=== PATIENT | female | born 1950 | race Caucasian/White ===

== ENCOUNTER 2017-01-22 06:28 | Day surgery (SDC) | payer OTHER, MEDICARE ==
[~2017-01-22] VITALS: Ht 157.5 cm; Wt 74.8 kg
[~2017-01-22 06:28] MED LIST: BUPROPION XL300 MG PO; CALTRATE 600+D1 EAC2 PO; GLUCOSAMINE H1500 MG PO; LISINOPRIL-HCT1 EACH PO; NORCO 5-325 TA1 EACH PO; SIMVASTATIN40 MG PO; VITAMIN D250000 UNIT PO; ZYRTEC10 MG PO
--- NOTE | 2017-01-22 08:13 | NUR ---
01/22/17 0813 Ryne Fang RESPONDS TO TAP AND VOICE ON ENTRY TO PACU. DENIES NAUSEA OR PAIN. FALLS ASLEEP EASILY.
--- NOTE | 2017-01-23 11:09 | OR ---
[facility] [address] [place], [place] [address] Signed DATE OF OPERATION: 01/22/2017 SURGEON: Hue Hall MD UPPER AND LOWER ENDOSCOPY REPORT PREOPERATIVE DIAGNOSES: 1. Gastroesophageal reflux disease. 2. Screening. POSTOPERATIVE DIAGNOSES: 1. Mild diffuse gastritis. 2. 4 mm polyp at 8 cm. PROCEDURES: 1. EGD with CLOtest and biopsies of the pyloric bulb and antrum. 2. Colonoscopy without biopsy. ESTIMATED BLOOD LOSS: None. INDICATIONS: Una is a 66-year-old female, who was asked to see me for both upper and lower endoscopy. She has had acid reflux for years and has been on a proton pump inhibitor. Apparently, the acid reflux getting worse. 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 Apparently, her employer would like her to stay longer. In addition, she had a negative screening colonoscopy back in 2005. There is no family history of colon cancer or polyps. Una has no lower GI complaints. I gave Una pamphlets on both upper and lower endoscopy. We looked at those together and reviewed the risk including, but not limited to gas, bloating, crampy abdominal pain, bleeding, perforation, requiring surgery, and missed diagnosis. We also discussed the need for IV conscious sedation. She has done well with Versed and fentanyl in the past. She has expressed understanding and would like to proceed. PROCEDURE NOTE: Una was taken into our endoscopy suite and placed in the supine semi-recumbent position. The posterior oropharynx was anesthetized with Hurricaine spray. A bite block was utilized for the upper endoscopy. She was given a total of 6 mg of Versed and 200 mcg of fentanyl to cover both cases. The adult gastroscope was then introduced and advanced under direct visualization of camera under the third portion of the duodenum. Electronically Signed By: HUE HALL MD 01/23/17 1109 PATIENT NAME: UNA RODRIGUEZ OPERATIVE REPORT DATE OF : 50 PHYSICIAN: HUE HALL MD REPORT #: [id number] REPORT IS CONFIDENTIAL AND NOT TO BE RELEASED WITHOUT AUTHORIZATION [facility] [address] [place], [place] [address] Signed The duodenum was unremarkable. We thought she had a little irritation, maybe in the pyloric bulb and certainly some mild diffuse erythematous changes in the stomach. We went and took biopsies at the pyloric bulb as well as the antrum for pathologic review. We also took a biopsy from the antrum for CLOtest. Upon retroflexion of scope, there was no evidence of a hiatal hernia. There were no gastric or esophageal varices. No ulcerations. The scope was withdrawn up through the area of GE junction, which was compliant without stricture. There was no evidence of any Klein esophagus. There was minimal disruption to the Z-line. There was no distal esophagitis. The middle and upper esophagus were unremarkable. After this, the gas was suctioned out and the gastroscope was removed. Una tolerated the procedure quite well. Una was then rotated into the left lateral decubitus position. She was maintained on IV sedation with Versed and fentanyl. A digital rectal exam was performed and this was unremarkable. The adult colonoscope was introduced and advanced all around into the cecum under direct visualization of the camera. It took some extra sedation and extra abdominal compression in order to advance the scope. She has a long redundant left-sided colon, it took some extra time to get the camera through this area. Her prep was quite good. The scope was then slowly withdrawn. We saw no pathology in the entire colon. In the rectum, she had a tiny polyp at 8 cm, which we removed with a hot biopsy forceps. Upon retroflexion of scope, there was no additional pathology noted above the anal canal. After this, the gas was suctioned out and colonoscope removed. Una tolerated the procedure quite well. RECOMMENDATIONS: I will see Una back in my office in 7 to 14 days to review her results. MD CLARE Qureshi/MODL /[id number] Electronically Signed By: HUE HALL MD 01/23/17 1109 PATIENT NAME: UNA RODRIGUEZ OPERATIVE REPORT DATE OF : 50 PHYSICIAN: HUE HALL MD REPORT #: [id number] REPORT IS CONFIDENTIAL AND NOT TO BE RELEASED WITHOUT AUTHORIZATION [facility] [address] [place] [address] [place], [place] [address] Signed cc: Aleksey Hamm DO Electronically Signed By: HUE HALL MD 01/23/17 1109 PATIENT NAME: UNA RODRIGUEZ OPERATIVE REPORT DATE OF : 50 PHYSICIAN: HUE HALL MD REPORT #: [id number] REPORT IS CONFIDENTIAL AND NOT TO BE RELEASED WITHOUT AUTHORIZATION
== END 2017-01-22 08:45 | disposition home or self-care (01) ==
LOC: DS 06:28 → OPS 06:28 → DS 06:45 → OPS 06:45
PROVIDERS: Colon & Rectal Surgery
PROC: 0DB68ZX Excision of Stomach, Via Natural or Artificial Opening Endoscopic, Diagnostic (ICD-10-PCS; 2017-01-22)
PROC: 0DBP8ZX Excision of Rectum, Via Natural or Artificial Opening Endoscopic, Diagnostic (ICD-10-PCS; principal; 2017-01-22 06:45)
PROC: 0DB98ZX Excision of Duodenum, Via Natural or Artificial Opening Endoscopic, Diagnostic (ICD-10-PCS; 2017-01-22 06:45)
DX: Z12.11 Encounter for screening for malignant neoplasm of colon (principal); K62.1 Rectal polyp; K29.50 Unspecified chronic gastritis without bleeding; K21.9 Gastro-esophageal reflux disease without esophagitis; E78.5 Hyperlipidemia, unspecified; I10 Essential (primary) hypertension; F32.9 Major depressive disorder, single episode, unspecified; F41.9 Anxiety disorder, unspecified; M06.9 Rheumatoid arthritis, unspecified; M81.0 Age-related osteoporosis without current pathological fracture; E55.9 Vitamin D deficiency, unspecified; G47.00 Insomnia, unspecified; Z90.710 Acquired absence of both cervix and uterus; Z88.5 Allergy status to narcotic agent; Z79.899 Other long term (current) drug therapy; Z98.890 Other specified postprocedural states
CPT/HCPCS: 86677; 88305; 99152; 99153; J2250; J3010; J7120

== ENCOUNTER 2020-01-05 12:16 | Emergency (ER) | payer MEDICARE ==
[~2020-01-05] VITALS: Ht 157.5 cm; Wt 74.8 kg
--- OUTSIDE RECORDS SUMMARY | ~2020-01-05 | XMS | Encounter Summary ---
Demographics + + + | Address | [address] | | | [place] [address] | + + + | Home Phone | | + + + | Preferred Language | Unknown | + + + | Marital Status | | + + + | Congregational Affiliation | Unknown | + + + | Race | White | + + + | Ethnic Group | Not or | + + + Author + + + | Author | [facility] | | | and [place] | + + + | Organization | [facility] | | | and [place] | + + + | Address | Unknown | + + + | Phone | Unavailable | + + + Support + + +---------+ + | Name | Relationship | Address | Phone | + + +---------+ + | Lis Perkins | ECON | Unknown | | + + +---------+ + Care Team Providers + +------+ + | Care Working Supervisor Name | Role | Phone | + +------+ + | Adonis Hamm DO | PCP | | + +------+ + Reason for Visit + + + | Reason | Comments | + + + | Medication Refill | | + + + Encounter Details +--------+--------+ + + + | Date | Type | Department | Care Team | Description | +--------+--------+ + + + | 06/30/ | Refill | [facility] | Adonis Hamm | Medication Refill | | 2018 | | [facility] | E, DO [address] | | | | | MEDICAL CL[facility] | [place], [place] | | | | | [address] [place], | [address] | | | | | [place] [address] | [phone] | | | | | [phone] | | | +--------+--------+ + + + Social History + +-------+ +--------+------+ | Tobacco Use | Types | Packs/Day | Years | Date | | | | | Used | | + +-------+ +--------+------+ | Never Smoker | | | | | + +-------+ +--------+------+ + +---+---+---+ | Smokeless Tobacco: | | | | | Never Used | | | | + +---+---+---+ + + +---------+ + | Alcohol Use | Drinks/Week | oz/Week | Comments | + + +---------+ + | Yes | 2 Cans of beer | 2.0 | | + + +---------+ + + + + | Sex Assigned at | Date Recorded | | | | + + + | Not on file | | + + + documented as of this encounter Miscellaneous Notes Telephone Encounter - Galina Bundy CMA - 06/30/2018 9:26 AM PDT [facility]ill [facility]. Patient was last seen on Recent Visits 04/14/2018 Mixed hyperlipidemia [facility] Adonis Hamm, DO Office Visit 02/03/2018 Mixed hyperlipidemia [facility] Adonis Hamm, DO Office Visit . Requested Prescriptions Pending Prescriptions Disp Refills lisinopril-hydrochlorothiazide (PRINZIDE,ZESTORETIC) 20-12.5 MG per tablet [Pharmacy Me d Name: LISINOPRIL-HCTZ 20/12.5MG TABLETS] 90 tablet 0 Sig: TAKE 1 TABLET BY MOUTH EVERY DAY Outpatient Morphine Equivalent Daily Dose (MEDD) None No results found for: AMPH, METHAMPHQUAL, CANNIBSCR, THC, MDMA, METHADSCR, METHADONE, LABOP IA, OPIATESCR, OPIATES, OPIATESINTER, MORPHINE, HYDROC, LABBENZ, TRICYCLICUR, BARBITURATE, P CP, AMPHEQUAL, OXYCODONEUR, OXYCODONE, OXYCOD, OXYMOR, PROPOX Patient's last refill was done 12/31/17. Other associated documentation for review None Galina Bundy CMA documented in this e ncounter Plan of Treatment Not on filedocumented as of this encounter Visit Diagnoses Not on filedocumented in this encounter"
--- OUTSIDE RECORDS SUMMARY | ~2020-01-05 | XMS | Encounter Summary ---
Demographics + + + | Address | [address] | | | [place] [address] | + + + | Home Phone | | + + + | Preferred Language | Unknown | + + + | Marital Status | | + + + | Denominational Affiliation | Unknown | + + + | Race | White | + + + | Ethnic Group | Not or | + + + Author + + + | Author | [facility] | | | and [place] | + + + | Organization | [facility] | | | and [...] Team Providers + +------+ + | Care Hitcher Name | Role | Phone | + +------+ + | Adonis Hamm DO | PCP | | + +------+ + Reason for Visit + +--------+ + | Reason | Onset | Comments | | | Date | | + +--------+ + | Medication Refill | 04/01/ | | | | 2020 | | + +--------+ + | Medication Refill | 04/03/ | | | | 2020 | | + +--------+ + Encounter Details +--------+--------+ + + + | Date | Type | Department | Care Team | Description | +--------+--------+ + + + | 04/01/ | Refill | [facility] | Adonis Hamm | Medication Refill; | | 2020 | | [facility] | E, DO [address] | Medication Refill | | | | MEDICAL [facility] [address] | [place], [place] | | | | [address] [facility], | [address] | | | | | [place] [address] | [phone] | | | | | [phone] | | | +--------+--------+ + + + [...] this encounter Miscellaneous Notes Telephone Encounter - Violeta Monsivais - 04/03/2019 2:57 PM PSTConfirmed by pharm 0. Ryann elephone Encount Violeta Magaña - 04/01/2019 9:06 AM PSTPt is asking that her RX for azithromycin (ZITHROMAX) 250 mg tablet Be sent to [facility] in [place]. It was sent to [facility] in on 03/30/19 but this is wrong. Clarisa, Violeta documented in this enc ounter Plan of Treatment Not on filedocumented as of this encounter Visit Diagnoses Not on filedocumented in this encounter"
--- OUTSIDE RECORDS SUMMARY | ~2020-01-05 | XMS | Encounter Summary ---
Demographics + + + | Address | [address] | | | [place] [address] | + + + | Home Phone | | + + + | Preferred Language | Unknown | + + + | Marital Status | | + + + | Episcopalian Affiliation | Unknown | + + + | Race | White | + + + | Ethnic Group | Not or | + + + Author + + + | Author | [facility] | | | and [place] | + + + | Organization | [facility] | | | and [...] Team Providers + +------+ + | Care Technical Instructor Name | Role | Phone | + +------+ + | Adonis Hamm DO | PCP | | + +------+ + Encounter Details +--------+ + + + + | Date | Type | Department | Care Team | Description | +--------+ + + + + | 04/22/ | Orders Only | [facility] | Miles Vora, | Vitamin D | | 2020 | | [facility] | DNP [address] | insufficiency | | | | MEDICAL CLIN[address] | [place] [address] | (Primary Dx) | | | | [address] [place], | [phone] | | | | | [place] [address] | | | | | | [phone] | | | +--------+ + + + + Social History + +-------+ [...] + + documented as of this encounter Plan of Treatment + +------+--------+ + + | Name | Type | Priori | Associated Diagnoses | Order Schedule | | | | ty | | | + +------+--------+ + + | Vitamin D, | Lab | Routin | Vitamin D | 1 Occurrences | | 25-Hydroxy, | | e | insufficiency | starting 04/22/2019 | | Fractionated (D2,D3) | | | | until 04/22/2020 | + +------+--------+ + + documented as of this encounter Visit Diagnoses + + | Diagnosis | + + | Vitamin D insufficiency - Primary Unspecified vitamin D deficiency | + + documented in this encounter"
--- OUTSIDE RECORDS SUMMARY | ~2020-01-05 | XMS | Encounter Summary ---
Demographics + + + | Address | [address] | | | [place] [address] | + + + | Home Phone | | + + + | Preferred Language | Unknown | + + + | Marital Status | | + + + | Yarsanism Affiliation | Unknown | + + + | Race | White | + + + | Ethnic Group | Not or | + + + Author + + + | Author | [facility] | | | and [place] | + + + | Organization | [facility] | | | and [...] Team Providers + +------+ + | Care Textile Stylist Name | Role | Phone | + +------+ + | Adonis Hamm DO | PCP | | + +------+ + Reason for Visit + +--------+ + | Reason | Onset | Comments | | | Date | | + +--------+ + | Medication Refill | 04/14/ | | | | 2019 | | + +--------+ + Encounter Details +--------+ + + + + | Date | Type | Department | Care Team | Description | +--------+ + + + + | 04/14/ | Telephone | [facility] | Adonis Hamm | Medication Refill | | 2018 | | [facility] | E, DO [address] | | | | | MEDICAL CLIN[address] | [place], [place] | | | | | [address] [place], | [address] | | | | | [place] [address] | [phone] | | | | | [phone] | | | +--------+ + + + [...] this encounter Miscellaneous Notes Telephone Encounter - Rosanna Hubbard CC CMA - 04/14/2018 4:47 PM PSTFaxed. QIANA Kim CMA eleDavid Hernandez - 04/14/2018 3:26 PM PSTpseudoePHEDrine (SUDAFED) 30 mg tablet, Puneet bruno om Marlen called and has not received this script yet and wanted to be sure it was sent, please resend/robin domartha huerta in this encounter Plan of Treatment Not on filedocumented as of this encounter Procedures + +--------+ + + + | Procedure Name | Priori | Date/Time | Associated Diagnosis | Comments | | | ty | | | | + +--------+ + + + | LIPID PANEL | Routin | 06/30/2018 | | Results for this | | | e | 7:36 AM | | procedure are in the | | | | PDT | | results section. | + +--------+ + + + | COMPREHENSIVE | Routin | 06/30/2018 | | Results for this | | METABOLIC PANEL | e | 7:36 AM | | procedure are in the | | | | PDT | | results section. | + +--------+ + + + documented in this encounter Results Comprehensive Metabolic Panel (06/30/2018 7:36 AM PDT) + + + + + + | Component | Value | Ref Range | Performed | Pathologist | | | | | At | Signature | + + + + + + | Sodium | 140 | 132 - 143 | REFERENCE | | | | | | LAB | | | | | | [facility] | | + + + + + + | Potassium | 4.0 | 3.6 - 5.1 | REFERENCE | | | | | | LAB | | | | | | [facility] | | + + + + + + | Chloride | 105 | 95 - 112 | REFERENCE | | | | | | LAB | | | | | | [facility] | | + + + + + + | Carbon | 25 | 19 - 31 | REFERENCE | | | dioxide | | | LAB | | | | | | [facility] | | + + + + + + | Anion Gap | 14.0 | 7 - 21 | REFERENCE | | | | | | LAB | | | | | | [facility] | | + + + + + + | Glucose | 112 (H) | 70 - 100 | REFERENCE | | | | | | LAB | | | | | | [facility] | | + + + + + + | BUN | 22 | 6 - 23 | REFERENCE | | | | | | LAB | | | | | | [facility] | | + + + + + + | Creatinine | 0.75 | 0.70 - 1.25 | REFERENCE | | | | | | LAB | | | | | | [facility] | | + + + + + + | GFR | 77 | | REFERENCE | | | ESTIMATE | | | LAB | | | (REF) | | | [facility] | | + + + + + + | BUN/Creatin | 29.3 (H) | 6.0 - 28.6 | REFERENCE | | | ine Ratio | | | LAB | | | | | | [facility] | | + + + + + + | Calcium | 9.6 | 8.5 - 10.3 | REFERENCE | | | | | | LAB | | | | | | [facility] | | + + + + + + | AST (SGOT) | 16 | 13 - 39 | REFERENCE | | | (REF) | | | LAB | | | | | | [facility] | | + + + + + + | ALT (SGPT) | 18 | 7 - 52 | REFERENCE | | | (REF) | | | LAB | | | | | | [facility] | | + + + + + + | ALK PHOS | 80 | 31 - 130 | REFERENCE | | | | | | LAB | | | | | | [facility] | | + + + + + + | BILIRUBIN, | 0.7 | 0.0 - 1.2 | REFERENCE | | | TOTAL | | | LAB | | | | | | [facility] | | + + + + + + | Protein, | 6.1 | 6.0 - 8.3 | REFERENCE | | | Total | | | LAB | | | | | | [facility] | | + + + + + + | Albumin | 4.2 | 3.5 - 5.0 | REFERENCE | | | | | | LAB | | | | | | [facility] | | + + + + + + | Globulin | 1.9 | 1.8 - 3.5 | REFERENCE | | | | | | LAB | | | | | | [facility] | | + + + + + + | A/G Ratio | 2.2Comment: | 1.1 - 2.4 | REFERENCE | | | | ESTIMATED GFR Reference | | LAB | | | | Range:GFR = Less than | | [facility] | | | | 60: Chronic Kidney | | | | | | Disease, if found over a | | | | | | 3 month period.GFR = | | | | | | Less than 15: Kidney | | | | | | Failure.For | | | | | | Americans, multiply the | | | | | | calculated GFR by | | | | | | 1.21.GFR calculation is | | | | | | not valid for patients | | | | | | under age 18 years.For | | | | | | patients over age 70 | | | | | | please interpret results | | | | | | with caution as results | | | | | | have not been validated | | | | | | for this calculation | | | | | | method Please Note:Total | | | | | | Protein Reference range | | | | | | change as of | | | | | | 08/05/2017.Please Note: | | | | | | Calcium reference range | | | | | | change as of 10/03/2017. | | | | + + + + + + + + | Specimen | + + | | + + + + + | Narrative | Performed At | + + + | Testing Performed at: [facility] CLIA: [id number] - [id number] | REFERENCE LAB | | [place] [address] | [facility] | + + + + + + + + | Performing | Address | City/State/Zipcode | Phone Number | | Organization | | | | + + + + + | REFERENCE LAB | [address] | [place], [place] | [phone] | | [facility] | | [address] | | + + + + + | REFERENCE LAB | [address] | [facility] [place] | [phone] | | [facility] | | [address] | | + + + + + Lipid Panel (06/30/2018 7:36 AM PDT) + + + + + + | Component | Value | Ref Range | Performed | Pathologist | | | | | At | Signature | + + + + + + | Cholesterol | 195 | OPT: <200 | REFERENCE | | | | | | LAB | | | | | | [facility] | | + + + + + + | Triglycerid | 300 (H) | 30 - 150 | REFERENCE | | | es | | | LAB | | | | | | [facility] | | + + + + + + | HDL | 36.2 (L) | OPT: >40 | REFERENCE | | | Cholesterol | | | LAB | | | | | | [facility] | | + + + + + + | LDL | 99 | OPT: <100 | REFERENCE | | | Cholesterol | | | LAB | | | | | | [facility] | | + + + + + + | Cholesterol | 60 (H) | 4 - 40 | REFERENCE | | | in VLDL | | | LAB | | | | | | [facility] | | + + + + + + | Chol/HDL | 5.4 (H) | OPT: <4.44 | REFERENCE | | | Ratio | | | LAB | | | | | | [facility] | | + + + + + + | Non-HDL | 159 (H) | OPT: <130 | REFERENCE | | | Cholesterol | | | LAB | | | | | | [facility] | | + + + + + + + + | Specimen | + + | | + + + + + | Narrative | Performed At | + + + | Testing Performed at: [facility] CLIA: [id number] - [address] | REFERENCE LAB | | [place] [address] | [facility] | + + + + + + + + | Performing | Address | City/State/Zipcode | Phone Number | | Organization | | | | + + + + + | REFERENCE LAB | [address] | [place] | [phone] | | [place] | | [address] | | + + + + + | REFERENCE LAB | [address] | [place] | [phone] | | [facility] | | [address] | | + + + + + documented in this encounter Visit Diagnoses Not on filedocumented in this encounter"
--- OUTSIDE RECORDS SUMMARY | ~2020-01-05 | XMS | Encounter Summary ---
Demographics + + + | Address | [address] | | | [place] [address] | + + + | Home Phone | | + + + | Preferred Language | Unknown | + + + | Marital Status | | + + + | Buddhist Affiliation | Unknown | + + + | Race | White | + + + | Ethnic Group | Not or | + + + Author + + + | Author | [facility] | | | and [place] | + + + | Organization | [facility] | | | [...] Team Providers + +------+ + | Care Data Entry Supervisor Name | Role | Phone | + +------+ + | Adonis Hamm DO | PCP | | + +------+ + Reason for Visit +---------+--------+ + | Reason | Onset | Comments | | | Date | | +---------+--------+ + | Imaging | 10/04/ | | | | 2019 | | +---------+--------+ + | Results | 10/05/ | Please call patient with CXR results | | | 2020 | | +---------+--------+ + Encounter Details +--------+ + + + + | Date | Type | Department | Care Team | Description | +--------+ + + + + | 10/04/ | Telephone | [facility] | Adonis Hamm | Imaging; Results | | 2019 | | [facility] | E, DO [address] | (Please call patient | | | | MEDICAL CL[facility] [address] | [place], [place] | with CXR results) | | | | [address] [place], | [address] | | | | | [place] [address] | [phone] | | | | | [phone] | | | +--------+ + + + [...] this encounter Miscellaneous Notes Telephone Encounter - Kasie Aguirre - 10/06/2019 10:07 AM PDTPatient spoke to Gal 's this morning and was informed the CXR results were faxed yesterday 10-05-[address] Marcelo ryan. Please call back with results when you find the report. Kasie Aguirre elephone Encounter - Princess Parker Utility Manager - 10/05/2019 2:39 PM PDTFax request sent. Taylor Cooper Telephone Encounter - Angely Sanchez FNP - 10/05/2019 2:28 PM PDTPlease call [facility] t o get the results. elep adrián Encounter - Princess Gonzalez Utility Manager - 10/05/2019 2:25 PM PDTFormattin g of this note might be different from the original. Please advise. Princess Gonzalez Utility ManagerAssistant Adonis Hamm DO ORDER DETAILS Xr Chest Pa And Lateral [[id number]] CPT: 60745 Diagnosis: Recurrent productive c ough [R05 (ICD-10-CM)] Pneumonia of right lower lobe due to infectious organism [J18.9 (ICD-10-CM)] Ordering User: Adonis Hamm DO Authorizing Provider: Adonis Hamm DO Electronically Signed. Order Comments: [facility] in [place]. Telephone Encounter - David Ghosh - 10/05/2019 1:25 PM PDTPt called and had X rays done at [facility] in [place] on 09-30-19 and was asking for the results, please call/Yuriy ctronically signed by David Ghosh at 10/05/2019 1:26 PM PDTdocumented in this encounter Plan of Treatment Not on filedocumented as of this encounter Visit Diagnoses Not on filedocumented in this encounter"
--- OUTSIDE RECORDS SUMMARY | ~2020-01-05 | XMS | Encounter Summary ---
Demographics + + + | Address | [address] | | | [place] [address] | + + + | Home Phone | | + + + | Preferred Language | Unknown | + + + | Marital Status | | + + + | Caodaism Affiliation | Unknown | + + + | Race | White | + + + | Ethnic Group | Not or | + + + Author + + + | Author | [facility] | | | and [place] | + + + | Organization | [facility] | | | and [...] Team Providers + +------+ + | Care Sand Mill Operator Name | Role | Phone | + [...] Description | +--------+--------+ + + + | 04/09/ | Refill | [facility] | Adonis Hamm | Medication Refill | | 2018 | | [facility] | E, DO [address] | | | | | MEDICAL CL[facility] | [place], [place] | | | | | [address] [place], | [address] | | | | | [place] [address] | [phone] | | | | | [phone] | | | +--------+--------+ + + + [...] this encounter Miscellaneous Notes Telephone Encounter - Cristin Delcid CC TRUCK CHAUFFEUR - 04/09/2018 2:53 PM PSTFormatting of this no te might be different from the original. Received refill request from Other Pharmacy [facility]. Patient was last seen on Recent Visits 02/03/2018 Mixed hyperlipidemia [facility] Adonis Hamm DO Office Visit . Requested Prescriptions Pending Prescriptions Disp Refills buPROPion (WELLBUTRIN XL) 300 mg 24 hr tablet [Pharmacy Med Name: BUPROPION XL 300MG TA BLETS] 90 tablet 0 Sig: TAKE 1 TABLET BY MOUTH EVERY DAY Patient's last refill was done 01/14/18. Other associated documentation for review None QIANA Kenny CMA documented in this encounter Plan of Treatment Not on filedocumented as of this encounter Visit Diagnoses Not on filedocumented in this encounter Additional Health Concerns + + + + + | Infection | Onset Date | Last Indicated | Resolved Time | + + + + + | Rule out COVID-19 | 09/02/2019 | 09/02/2019 | 09/02/2019 11:11 AM | | | | | PDT | + + + + + documented as of this encounter"
--- OUTSIDE RECORDS SUMMARY | ~2020-01-05 | XMS | Encounter Summary ---
Demographics + + + | Address | [address] | | | [place] [address] | + + + | Home Phone | | + + + | Preferred Language | Unknown | + + + | Marital Status | | + + + | Caodaism Affiliation | Unknown | + + + | Race | White | + + + | Ethnic Group | Not or | + + + Author + + + | Author | [facility] | | | and [place] | + + + | Organization | [facility] | | | [...] Team Providers + +------+ + | Care Materials Assistant Name | Role | Phone | + +------+ + PCP | Unavailable | + +------+ + Encounter Details +--------+ + + + + | Date | Type | Department | Care Team | Description | +--------+ + + + + | 01/31/ | Abstract | [facility] | Noemy Aragon | | | 2018 | | [facility] | | | | | | [facility] [address] | | | | | | [address] [facility], | | | | | | [place] [address] | | | | | | [phone] | | | +--------+ + + + [...] | | | + +---+---+---+ + + + | Sex Assigned at | Date Recorded | | | | + + + | Not on file | | + + + documented as of this encounter Plan of Treatment Not on filedocumented as of this encounter Visit Diagnoses Not on filedocumented in this encounter"
--- OUTSIDE RECORDS SUMMARY | ~2020-01-05 | XMS | Encounter Summary ---
Demographics + + + | Address | [address] | | | [place] [address] | + + + | Home Phone | | + + + | Preferred Language | Unknown | + + + | Marital Status | | + + + | Faith Affiliation | Unknown | + + + | Race | White | + + + | Ethnic Group | Not or | + + + Author + + + | Author | [facility] | | | and [place] | + + + | Organization | [facility] | | | [...] Team Providers + +------+ + | Care Trackwalker Name | Role | Phone | + +------+ + | Adonis Hamm DO | PCP | | + +------+ + Reason for Visit +--------+--------+ + | Reason | Onset | Comments | | | Date | | +--------+--------+ + | Other | 09/13/ | | | | 2020 | | +--------+--------+ + Encounter Details +--------+ + + + + | Date | Type | Department | Care Team | Description | +--------+ + + + + | 09/13/ | Telephone | [facility] | Adonis Hamm | Other | | 2020 | | [facility] | E, DO [address] | | | | | [facility] [address] | [place], [place] | | | | | [address] [place], | [address] | | | | | [place] [address] | [phone] | | | | | [phone] | | | +--------+ + + + [...] this encounter Miscellaneous Notes Telephone Encounter - Adonis Hamm DO - 09/14/2019 10:18 AM PDTSudagest 30 mg one po tid prn # 40 NR elephone Galina Sesay CMA - 09/14/2019 10:01 AM PDTCalled and relayed message to pt. P t stated understanding. Pt stated that Dr maynard stated he would order her some sudafed at her last apt but the RX was never written. Pt is requesting an order for sudafed. Galina Bundy CMA elephone Encounter - Adonis Hamm DO - 09/14/2019 9:19 AM PDTSymptomatic care and tincture of time. Would re-examine her in 3 weeks or so. Electronically signed by Adonis Hamm DO at 9:20 AM PDTTelephone Encounter - Galina Bundy CMA - 09/14/2019 9:17 AM PDTCal led pt and she stated that she finished all her antibiotics on Saturday and does not feel a ny better. Pls advise. Galina Bundy CMA elephone Encounter - Avani García - 09/14/2019 8:28 AM PDTPatient requesting call back regarding sti ll not feeling well, Patient stating still coughing and feeling run down. Avani García documented in this encounter Plan of Treatment Not on filedocumented as of this encounter Visit Diagnoses Not on filedocumented in this encounter"
--- OUTSIDE RECORDS SUMMARY | ~2020-01-05 | XMS | Encounter Summary ---
Demographics + + + | Address | [address] | | | [place] [address] | + + + | Home Phone | | + + + | Preferred Language | Unknown | + + + | Marital Status | | + + + | Mandaeism Affiliation | Unknown | + + + | Race | White | + + + | Ethnic Group | Not or | + + + Author + + + | Author | [facility] | | | and [place] | + + + | Organization | [facility] | | | [...] Team Providers + +------+ + | Care Pari Mutuel Ticket Cashier Name | Role | Phone | + +------+ + | Adonis Hamm DO | PCP | | + +------+ + Reason for Visit + +--------+ + | Reason | Onset | Comments | | | Date | | + +--------+ + | Results, Imaging | 09/01/ | CXR | | | 2020 | | + +--------+ + | Results, Pathology | 09/01/ | COVID19 | | | 2020 | | + +--------+ + Encounter Details +--------+ + + + + | Date | Type | Department | Care Team | Description | +--------+ + + + + | 09/01/ | Telephone | [facility] | Adonis Hamm | Results, Imaging | | 2020 | | [facility] | E, DO [address] | (CXR); Results, | | | | [facility] [address] | [place], [place] | Pathology (COVID19) | | | | [address] [place], | [address] | | | | | [place] [address] | [phone] | | | | | [phone] | | | +--------+ + + + [...] this encounter Miscellaneous Notes Telephone Encounter - Jo Ann Mejia CC CMA - 09/02/2019 1:41 PM PDTPatient informed. P t verbalized understanding and had no further questions. I encouraged callback with question s or further concerns. QIANA Hough CMA elephone Encoun ter - Jo Ann Mejia CC CMA - 09/02/2019 1:40 PM PDT----- Message from Adonis Hamm DO sent at 09/02/2019 12:35 PM PDT ----- ----- Message ----- From: Faisal Bhatt Results In Sent: 09/02/2019 12:13 PM PDT To: Adonis Hamm DO documented in th is encounter Plan of Treatment Not on filedocumented [...]
--- OUTSIDE RECORDS SUMMARY | ~2020-01-05 | XMS | Encounter Summary ---
Demographics + + + | Address | [address] | | | [place] [address] | + + + | Home Phone | | + + + | Preferred Language | Unknown | + + + | Marital Status | | + + + | Latter Day Affiliation | Unknown | + + + | Race | White | + + + | Ethnic Group | Not or | + + + Author + + + | Author | [facility] | | | and [place] | + + + | Organization | [facility] | | | [...] Team Providers + +------+ + | Care Roller Setter Name | Role | Phone | + [...] Description | +--------+--------+ + + + | 12/10/ | Refill | [facility] | Adonis Hamm | Medication Refill | | 2017 | | [facility] | E, DO [address] | | | | | MED[facility] [address] | [place], [place] | | | | | [address] [place], | [address] | | | | | [place] [address] | [phone] | | | | | [phone] | | | +--------+--------+ + + + Social History + +-------+ +--------+------+ | Tobacco Use | Types | Packs/Day | Years | Date | | | | | Used | | + +-------+ +--------+------+ | Never Assessed | | | | | + +-------+ +--------+------+ + + + | Sex Assigned at | Date Recorded | | | | + + + | Not on file | | + + + documented as of this encounter Miscellaneous Notes Telephone Encounter - Rosanna Hubbard CC CMA - 12/10/2017 9:33 AM PDTLAST OFFICE VISIT , ESTABLISHING 02/03/2018. QIANA Singh CMA documented in this encounter Plan of [...]
--- OUTSIDE RECORDS SUMMARY | ~2020-01-05 | XMS | Encounter Summary ---
Demographics + + + | Address | [address] | | | [place] [address] | + + + | Home Phone | | + + + | Preferred Language | Unknown | + + + | Marital Status | | + + + | Pentecostalism Affiliation | Unknown | + + + | Race | White | + + + | Ethnic Group | Not or | + + + Author + + + | Author | [facility] | | | and [place] | + + + | Organization | [facility] | | | [...] Team Providers + +------+ + | Care Intern Retail Name | Role | Phone | + +------+ + | Adonis Hamm DO | PCP | | + +------+ + Reason for Visit + +--------+ + | Reason | Onset | Comments | | | Date | | + +--------+ + | Appointment | 08/19/ | | | | 2019 | | + +--------+ + Encounter Details +--------+ + + + + | Date | Type | Department | Care Team | Description | +--------+ + + + + | 08/19/ | Telephone | [facility] | Noemy Aragon | Appointment | | 2019 | | [facility] | | | | | | [facility] [address] | | | | | | [address] [facility] [place], | | | | | | [place] [address] | | | | | | [phone] | | | +--------+ + + + [...] this encounter Miscellaneous Notes Telephone Encounter - Trent Rao - 08/22/2018 9:33 AM PDTPt is scheduled 12/15/18. Trent Rao eleph one Encounter - Trent Rao - 08/20/2018 12:28 PM PDTLeft VM to schedule appt. Trent Rao eleph one Encounter - Noemy Aragon - 08/19/2018 2:48 PM PDTPlease schedule patient for a 20 min appointment to freeze SK lesion. Noemy documented in this encounter Plan of Treatment Not on filedocumented as of this encounter Visit Diagnoses Not on filedocumented in this encounter"
--- OUTSIDE RECORDS SUMMARY | ~2020-01-05 | XMS | Encounter Summary ---
Demographics + + + | Address | [address] | | | [place] [address] | + + + | Home Phone | | + + + | Preferred Language | Unknown | + + + | Marital Status | | + + + | Mu-Ism Affiliation | Unknown | + + + | Race | White | + + + | Ethnic Group | Not or | + + + Author + + + | Author | [facility] | | | and [place] | + + + | Organization | [facility] | | | and [...] Team Providers + +------+ + | Care Identity Access Management Architect Name | Role | Phone | + +------+ + | Adonis Hamm DO | PCP | | + +------+ + Encounter Details +--------+---------+ + + + | Date | Type | Department | Care Team | Description | +--------+---------+ + + + | 09/01/ | Office | [facility] | Adonis Hamm | Recurrent productive | | 2020 | Visit | [facility] | E, DO [address] | cough (Primary Dx); | | | | [facility] | [place], [place] | Acute frontal | | | | [address] [place], | [address] | sinusitis, | | | | [place] [address] | [phone] | recurrence not | | | | [phone] | | specified | +--------+---------+ + + + Social History + +-------+ +--------+------+ | Tobacco Use | Types | Packs/Day | Years | Date | | | | | Used | | + +-------+ +--------+------+ | Never Smoker | | | | | + +-------+ +--------+------+ + +---+---+---+ | Smokeless Tobacco: | | | | | Never Used | | | | + +---+---+---+ + + | Tobacco Cessation: Counseling Given: No | + + + + +---------+ + | Alcohol Use [...] + + documented as of this encounter Last Filed Vital Signs + + + + + | Vital Sign | Reading | Time Taken | Comments | + + + + + | Blood Pressure | - | - | | + + + + + | Pulse | 77 | 09/02/2019 9:22 AM | | | | | PDT | | + + + + + | Temperature | 36.7 C (98 F) | 09/02/2019 9:22 AM | | | | | PDT | | + + + + + | Respiratory Rate | 18 | 09/02/2019 9:22 AM | | | | | PDT | | + + + + + | Oxygen Saturation | 98% | 09/02/2019 9:22 AM | | | | | PDT | | + + + + + | Inhaled Oxygen | - | - | | | Concentration | | | | + + + + + | Weight | - | - | | + + + + + | Height | - | - | | + + + + + | Body Mass Index | - | - | | + + + + + documented in this encounter Progress Notes Adonis Hamm DO - 09/02/2019 8:00 AM PDT Patient ID: Una Manuel is a 69 y.o. year old female Chief Complaint: No chief complaint on file. Assessment 1. Recurrent productive cough - Coronavirus (COVID-19) NAAT; Future - Coronavirus (COVID-19) NAAT - XR Chest PA and Lateral; Future - azithromycin (ZITHROMAX) 250 mg tablet; Take 2 tablets by mouth on day 1, and 1 tablet by mouth every day Dispense: 6 tablet; Refill: 0 - amoxicillin-clavulanate (AUGMENTIN) 875-125 mg per tablet; Take one tablet by mouth twice daily for 7 days. Dispense: 14 tablet; Refill: 0 - methylPREDNISolone (MEDROL DOSEPAK) 4 mg tablet; Follow package directions. Dispense: 21 tablet; Refill: 0 2. Acute frontal sinusitis, recurrence not specified - azithromycin (ZITHROMAX) 250 mg tablet; Take 2 tablets by mouth on day 1, and 1 tablet by mouth every day Dispense: 6 tablet; Refill: 0 - amoxicillin-clavulanate (AUGMENTIN) 875-125 mg per tablet; Take one tablet by mouth twice daily for 7 days. Dispense: 14 tablet; Refill: 0 - methylPREDNISolone (MEDROL DOSEPAK) 4 mg tablet; Follow package directions. Dispense: 21 tablet; Refill: 0 Plan: -COVID-19 testing ordered today. Will contact patient with the results. -XR chest PA and lateral ordered today. Will contact patient with the results. -Initiated Z-lucas, medrol dosepak, and augmentin 875-125 mg BID for seven days. -Advised patient to self-isolate until results return. -FU PRN. Subjective: HPI: Patient presents to the clinic for coughing fits. The patient reports a productive cough, onset of around 3 weeks. She has sinus pain under b oth eyes and reports a previous sinus infection which contributes to occasional ear pain, dr shepherd, and a sore throat. Denies SOB, fever, chills, wheezing, chest pain, or palpitations. She has tried Robitussin, NyQuil, and ibuprofen with no relief. She has also been sucking o n lozenges for her cough, which she states gives her mild relief. She has taken antihistamin es and decongestants, but denies taking Sudafed. Current Outpatient Medications Medication Sig Dispense Refill alendronate (FOSAMAX) 10 mg tablet TK 1 T PO QD. REMAIN UPRIGHT FOR 30 MINUTES. DO NOT TAKE WITH FOOD FOR 30 MINUTES 90 tablet 3 amoxicillin-clavulanate (AUGMENTIN) 875-125 mg per tablet Take one tablet by mouth twic e daily for 7 days. 14 tablet 0 azithromycin (ZITHROMAX) 250 mg tablet Take 2 tablets by mouth on day 1, and 1 tablet b y mouth every day 6 tablet 0 buPROPion (WELLBUTRIN XL) 300 mg 24 hr tablet TAKE 1 TABLET BY MOUTH EVERY DAY 90 table t 3 calcium, as carbonate, (CALTRATE) 600 mg tablet Take 1 tablet by mouth 2 times daily (w ith breakfast & dinner). 180 tablet 3 Cetirizine HCl (ZYRTEC ALLERGY) 10 MG liqui-gel Take 1 capsule by mouth Daily. 90 capsu le 3 cholecalciferol (VITAMIN D-3) 1.25 mg (50,000 units) capsule Take 1 capsule by mouth On ce a week. 8 each 0 clotrimazole-betamethasone (LOTRISONE) cream Apply topically 2 times daily. 45 g 3 diclofenac (VOLTAREN) 0.1 % ophthalmic solution instill 1 drop into both eyes three linn es a day famotidine (PEPCID) 20 mg tablet Take 1 tablet by mouth 2 times daily. Instead of Zanta c. 180 tablet 3 folic acid (FOLVITE) 400 MCG tablet Take 1 tablet by mouth Daily. 90 tablet 3 ibuprofen (CVS IBUPROFEN) 200 mg tablet Take 200 mg by mouth every 6 hours as needed fo r Pain. lisinopril-hydrochlorothiazide (PRINZIDE,ZESTORETIC) 20-12.5 MG per tablet TAKE 1 TABLE T BY MOUTH EVERY DAY 90 tablet 3 methotrexate 2.5 mg tablet Take 3 tablets by mouth Once a week. Indications: Other Non- Oncology 36 tablet 3 methylPREDNISolone (MEDROL DOSEPAK) 4 mg tablet Follow package directions. 21 tablet 0 Misc Natural Products (GLUCOSAMINE CHOND COMPLEX/MSM) TABS Take by mouth as needed. montelukast (SINGULAIR) 10 mg tablet Take 1 tablet by mouth Daily. 30 tablet 0 omega-3 acid ethyl esters (LOVAZA) 1 g capsule Take 4 capsules by mouth Daily. 120 caps ule 11 pseudoePHEDrine (SUDAFED) 60 MG tablet Take 1 tablet by mouth every 6 hours as needed f or Congestion. 60 tablet 0 raNITIdine (ZANTAC) 150 mg tablet Take 1 tablet by mouth 2 times daily. 180 tablet 3 rosuvastatin (CRESTOR) 20 mg tablet Take 1 tablet by mouth nightly. 90 tablet 3 No current facility-administered medications for this visit. Patient Active Problem List Diagnosis Anxiety and depression Dermatitis Essential hypertension Mixed hyperlipidemia Insomnia Osteoporosis, post-menopausal Rheumatoid arthritis Long-term use of high-risk medication Primary osteoarthritis involving multiple joints Vitamin D insufficiency Impaired fasting glucose Hyperglycemia Overweight (BMI 25.0-29.9) Family History Problem Relation Age of Onset Diabetes Father Borderline Past Surgical History: Procedure Laterality Date CATARACT REMOVAL Bilateral 08/2018 COLONOSCOPY 01/22/2017 JARAD AND BSO TONSILLECTOMY Social History Socioeconomic History Marital status: Spouse name: Not on file Number of children: Not on file Years of education: Not on file Highest education level: Not on file Occupational History Not on file Social Needs Financial resource strain: Not on file Food insecurity Worry: Not on file Inability: Not on file Transportation needs Medical: Not on file Non-medical: Not on file Tobacco Use Smoking status: Never Smoker Smokeless tobacco: Never Used Substance and Sexual Activity Alcohol use: Yes Alcohol/week: 2.0 standard drinks Types: 2 Cans of beer per week Drug use: No Sexual activity: Yes Partners: Male Lifestyle Physical activity Days per week: Not on file Minutes per session: Not on file Stress: Not on file Relationships Social connections Talks on phone: Not on file Gets together: Not on file Attends amish service: Not on file Active member of club or organization: Not on file Attends meetings of clubs or organizations: Not on file Relationship status: Not on file Intimate partner violence Fear of current or ex partner: Not on file Emotionally abused: Not on file Physically abused: Not on file Forced sexual activity: Not on file Other Topics Concern Not on file Social History Narrative Not on file Allergies Allergen Reactions Hydrocodone-Acetaminophen Nausea And Vomiting Review of Systems Constitutional: Negative for chills and fever. HENT: Positive for ear pain (occasional), postnasal drip, sinus pain and sore throat (occas ional). Respiratory: Positive for cough. Negative for shortness of breath and wheezing. Cardiovascular: Negative for chest pain and palpitations. Objective: Vitals: Pulse 77 | Temp 36.7 C (98 F) (Oral) | Resp 18 | LMP (LMP Unknown) | SpO2 98% | B reastfeeding No Physical Exam Constitutional: She is oriented to person, place, and time. She appears well-developed and well-nourished. HENT: Head: Normocephalic and atraumatic. Right Ear: External ear normal. Left Ear: External ear normal. Nose: Right sinus exhibits frontal sinus tenderness. Left sinus exhibits frontal sinus tend erness. Mouth/Throat: Oropharynx is clear and moist. No oropharyngeal exudate. Eyes: Pupils are equal, round, and reactive to light. Conjunctivae and EOM are normal. Neck: Normal range of motion. Neck supple. No thyromegaly present. Cardiovascular: Normal rate, regular rhythm, normal heart sounds and intact distal pulses. Pulmonary/Chest: Effort normal. She has decreased breath sounds. Diminished breath sounds and paroxysmal cough with inspiration Abdominal: Soft. Bowel sounds are normal. Neurological: She is alert and oriented to person, place, and time. She has normal reflexes . Psychiatric: She has a normal mood and affect. Her behavior is normal. Judgment and thought content normal. Nursing note and vitals reviewed. This documentation prepared by Fernanda Queen medical doctor nuclear medicine. All aspects of this chart review ed for accuracy and content by Adonis Hamm DO at the date and time of service. Electronically signed by: Dr. Adonis Hamm DO 09/02/2019 10:54 AM PDT documented in this encounter Plan of Treatment Not on filedocumented as of this encounter Procedures + +--------+ + + + | Procedure Name | Priori | Date/Time | Associated Diagnosis | Comments | | | ty | | | | + +--------+ + + + | CORONAVIRUS | Routin | 09/02/2019 | Recurrent | Results for this | | (COVID-19) NAAT | e | 9:28 AM | productive cough | procedure are in the | | | | PDT | | results section. | + +--------+ + + + documented in this encounter Results XR Chest PA and Lateral (09/02/2019 10:11 AM PDT) + + | Specimen | + + | | + + + + + | Impressions | Performed At | + + + | Query right lower lobe pneumonia. Correlation with COVID-19 test | [facility] | | results is recommended. Dictated by: Carl Craig | | | | | + + + + + + | Narrative | Performed At | + + + | EXAMINATION: XR CHEST PA AND LATERAL HISTORY: productive, | [facility] | | chronic cough. Concern for COVID-19. COMPARISON STUDY: None | | | FINDINGS: The lungs are well ventilated. Hazy ground-glass opacity | | | is noted projecting over the right lower lobe. No pleural effusion. | | | No pneumothorax. Cardiomediastinal silhouette is normal. No | | | acute osseous process. | | + + + + + | Procedure Note | + + | Miller, Rad Results In - 09/02/2019 12:13 PM PDT EXAMINATION:XR CHEST PA AND | | LATERALHISTORY:productive, chronic cough. Concern for COVID-19.COMPARISON | | STUDY:NoneFINDINGS:The lungs are well ventilated. Hazy ground-glass opacity is noted | | projecting over the right lower lobe. No pleural effusion. No pneumothorax. | | Cardiomediastinal silhouette is normal. No acute osseous process.IMPRESSION: Query | | right lower lobe pneumonia. Correlation with COVID-19 test results is | | recommended.Dictated by: Carl CotoamElectronically Signed by: Carl Craig on | | 09/02/2019 12:09 PM | | | |FINDINGS: | |The lungs are well ventilated. Hazy ground-glass opacity is noted projecting over the righ t lower lobe. No pleural effusion. No pneumothorax. Cardiomediastinal silhouette is srikanth l. No acute osseous process. | | | |IMPRESSION: | |Query right lower lobe pneumonia. Correlation with COVID-19 test results is recommended. | | | |Dictated by: Carl Craig | | | | | + + + +---------+ + + | Performing | Address | City/State/Zipcode | Phone Number | | Organization | | | | + +---------+ + + | [facility] | | | | + +---------+ + + Coronavirus (COVID-19) NAAT (09/02/2019 9:28 AM PDT) + + + + + + | Component | Value | Ref Range | Performed | Pathologist | | | | | At | Signature | + + + + + + | SARS-CoV-2, | NegativeComment: | Negative | [facility] | | | NAAT | SARS-CoV-2, RNA | | [facility] | | | (COVID-19) | (COVID-19) EUA Negative | | [facility] | | | | results, using the | | REGIONAL | | | | Looklet ID NOW Platform, | | MEDICAL | | | | should be treated as | | [facility]ENTER [facility] | | | | presumptive and, if | | | | | | inconsistent with | | | | | | clinical signs and | | | | | | symptoms or necessary | | | | | | for patient management, | | | | | | should be tested with an | | | | | | alternative molecular | | | | | | assay. Please contact | | | | | | the laboratory for | | | | | | assistance as needed. | | | | | | Negative results do not | | | | | | preclude COVID-19 | | | | | | infection and should not | | | | | | be used as the sole | | | | | | basis for patient | | | | | | management decisions. | | | | | | Negative results should | | | | | | be considered in the | | | | | | context of a patient's | | | | | | recent exposures, | | | | | | history, presence of | | | | | | clinical signs and | | | | | | symptoms consistent with | | | | | | COVID-19. This assay | | | | | | has been cleared for use | | | | | | under an FDA Emergency | | | | | | Use Authorization. This | | | | | | test is used for | | | | | | clinical purposes. It | | | | | | should not be regarded | | | | | | as investigational or | | | | | | for research. This | | | | | | laboratory is certified | | | | | | under the Clinical | | | | | | Laboratory Improvement | | | | | | Amendments (CLIA) as | | | | | | qualified to perform | | | | | | high complexity testing. | | | | | | This test has been | | | | | | validated in accordance | | | | | | with the FDA's Guidance | | | | | | Document "Policy for | | | | | | Diagnostics Testing in | | | | | | Laboratories Certified | | | | | | to Perform High | | | | | | Complexity Testing under | | | | | | CLIA prior to Emergency | | | | | | Use Authorization for | | | | | | Coronavirus Disease-2019 | | | | | | during the Public | | | | | | Health Emergency" issued | | | | | | on May 16, 2019. | | | | | | FDA independent review | | | | | | of this validation is | | | | | | pending. This test is | | | | | | only authorized for the | | | | | | duration of time the | | | | | | declaration that | | | | | | circumstances exist | | | | | | justifying the | | | | | | authorization of the | | | | | | emergency use of in | | | | | | vitro diagnostic tests | | | | | | for detection of | | | | | | SARS-CoV-2 virus and/or | | | | | | diagnosis of COVID-19 | | | | | | infection under section | | | | | | 564(b)(1) of the Act, 21 | | | | | | U.S.C. 360bbb-3(b)(1), | | | | | | unless the authorization | | | | | | is terminated or | | | | | | revoked sooner. unless | | | | | | the authorization is | | | | | | terminated or revoked | | | | | | sooner. | | | | + + + + + + + + | Specimen | + + | Tissue - Both | | anterior nares (body | | structure) | + + + + + + + | Performing | Address | City/State/Zipcode | Phone Number | | Organization | | | | + + + + + | [facility] | [address] | [place], [place] | [phone] | | [facility] | | [id number] | | | [facility] | | | | + + + + + documented in this encounter Visit Diagnoses + + | Diagnosis | + + | Recurrent productive cough - Primary Cough | + + | Acute frontal sinusitis, recurrence not specified | + + documented in this encounter Additional Health Concerns + [...]
--- OUTSIDE RECORDS SUMMARY | ~2020-01-05 | XMS | Encounter Summary ---
Demographics + + + | Address | [address] | | | [place] [address] | + + + | Home Phone | | + + + | Preferred Language | Unknown | + + + | Marital Status | | + + + | Congregation Affiliation | Unknown | + + + | Race | White | + + + | Ethnic Group | Not or | + + + Author + + + | Author | [facility] | | | and [place] | + + + | Organization | [facility] | | | [...] Team Providers + +------+ + | Care Office Communication Professor Name | Role | Phone | + +------+ + | Adonis Hamm DO | PCP | | + +------+ + Reason for Visit + + + | Reason | Comments | + + + | Follow-up | Follow up on recent labs | + + + Encounter Details +--------+---------+ + + + | Date | Type | Department | Care Team | Description | +--------+---------+ + + + | 07/07/ | Office | [facility] | Adonis Hamm | Mixed hyperlipidemia | | 2019 | Visit | [facility] | E, DO [address] | (Primary Dx); | | | | [facility] [address] | [place] | Impaired fasting | | | | [address] [place], | [address] | glucose; Overweight | | | | [place] [address] | [phone] | (BMI 25.0-29.9) | | | | [phone] | | | +--------+---------+ + + + Social History [...] + + + | Blood Pressure | 138/72 | 07/07/2018 1:13 PM | | | | | PDT | | + + + + + | Pulse | 84 | 07/07/2018 1:13 PM | | | | | PDT | | + + + + + | Temperature | - | - | | + + + + + | Respiratory Rate | 18 | 07/07/2018 1:13 PM | | | | | PDT | | + + + + + | Oxygen Saturation | 98% | 07/07/2018 1:13 PM | | | | | PDT | | + + + + + | Inhaled Oxygen | - | - | | | Concentration | | | | + + + + + | Weight | 70.7 kg (155 lb 12.8 | 07/07/2018 1:13 PM | | | | oz) | PDT | | + + + + + | Height | 157.5 cm (5' 2") | 07/07/2018 1:13 PM | | | | | PDT | | + + + + + | Body Mass Index | 28.5 | 07/07/2018 1:13 PM | | | | | PDT | | + + + + + documented in this encounter Patient Instructions Patient Instructions Noemy Aragon - 07/07/2018 1:20 PM PDT-Increase OTC Fish Oil 4000 mg daily, if your insurance approves prescription fish oil, then Start Lovaza 4 g daily -Start Phentermine 15 mg daily in the morning -Follow up 1 month starting Phentermine documented in this encounter Progress Notes Adonis Hamm DO - 07/07/2018 1:20 PM PDT Patient ID: Una Manuel is a 68 y.o. year old female Chief Complaint Patient presents with Follow-up Follow up on recent labs Assessment: Mixed hyperlipidemia (Primary) - [id number] Ethyl Esters; Take 4 capsules by mouth Daily. Dispense: 120 capsule; Re fill: 11 Impaired fasting glucose Overweight (BMI 25.0-29.9) - Phentermine HCl; Take 1 capsule by mouth every morning. Dispense: 30 capsule; Refill : 1 Plan: -Increase OTC Fish Oil 4000 mg daily, if your insurance approves prescription fish oil, the n Start Lovaza 4 g daily -Start Phentermine 15 mg daily in the morning -Follow up 1 month starting Phentermine 20 minute visit with > 50% time spent in counseling regarding starting Phentermine use and side effects. Subjective: JAZZ Heart presents to the clinic today for a follow up regarding recent blood work. Reviewed recent blood work with her. Her Triglycerides are elevated at 300, and HDL are low at 36.2. She currently takes Rosuvastatin 20 mg nightly and Fish Oil 2000 mg daily. Her Glu cose are elevated at 112. She is tired. In the past she was on Phentermine, it helped her not eat the carbohydrates. Current Outpatient Medications Medication Sig Dispense Refill alendronate (FOSAMAX) 10 mg tablet TK 1 T PO QD. REMAIN UPRIGHT FOR 30 MINUTES. DO NOT TAKE WITH FOOD FOR 30 MINUTES 3 buPROPion (WELLBUTRIN XL) 300 mg 24 hr tablet TAKE 1 TABLET BY MOUTH EVERY DAY 90 table t 0 calcium, as carbonate, (CALTRATE) 600 mg tablet Take 600 mg by mouth 2 times daily (wit h breakfast & dinner). Cetirizine HCl (ZYRTEC ALLERGY) 10 MG liqui-gel Take 10 mg by mouth Daily. clotrimazole-betamethasone (LOTRISONE) cream Apply topically 2 times daily. 15 g 1 folic acid (FOLVITE) 400 MCG tablet Take 400 mcg by mouth Daily. ibuprofen ([employer]S IBUPROFEN) 200 mg tablet Take 200 mg by mouth every 6 hours as needed fo r Pain. lisinopril-hydrochlorothiazide (PRINZIDE,ZESTORETIC) 20-12.5 MG per tablet TAKE 1 TABLE T BY MOUTH EVERY DAY 90 tablet 3 methotrexate 2.5 mg tablet Take 7.5 mg by mouth Once a week. Misc Natural Products (GLUCOSAMINE CHOND COMPLEX/MSM) TABS Take by mouth as needed. [place]-3 Fatty Acids (OMEGA-3 PO) Take 1,040 mg by mouth Daily. raNITIdine (ZANTAC) 150 mg tablet Take 150 mg by mouth 2 times daily. rosuvastatin (CRESTOR) 20 mg tablet Take 1 tablet by mouth nightly. 90 tablet 3 No current facility-administered medications for this visit. Review of Systems Constitutional: Positive for appetite change and fatigue. Objective: Vitals: BP 138/72 | Pulse 84 | Resp 18 | Ht 1.575 m (5' 2") | Wt 70.7 kg (155 lb 12.8 oz) | Sp O2 98% | ? No | BMI 28.50 kg/m Physical Exam Constitutional: She is oriented to person, place, and time. She appears well-developed and well-nourished. No distress. Eyes: EOM are normal. Pulmonary/Chest: Effort normal. Neurological: She is alert and oriented to person, place, and time. Psychiatric: She has a normal mood and affect. Entered by Noemy Aragon CMSP, acting as scribe for Aleksey Szumski D.O. The documentation recorded by the scribe accurately reflects the service I personally perfo umeshed and the decisions made by me. documented in this encounter Plan of Treatment Not on filedocumented as of this encounter Visit Diagnoses + + | Diagnosis | + + | Mixed hyperlipidemia - Primary | + + | Impaired fasting glucose | + + | Overweight (BMI 25.0-29.9) Overweight | + + documented in this encounter
--- OUTSIDE RECORDS SUMMARY | ~2020-01-05 | XMS | Encounter Summary ---
Demographics + + + | Address | [address] | | | [place] [address] | + + + | Home Phone [...] | Author | [facility] | | | and [place] | + + + | Organization | [facility] | | | and [...] Team Providers + +------+ + | Care Vp Corporate Partnerships Name | Role | Phone | + +------+ + | Adonis Hamm DO | PCP | | + +------+ + Reason for Visit +--------+--------+ + | Reason | Onset | Comments | | | Date | | +--------+--------+ + | Cough | 08/31/ | | | | 2020 | | +--------+--------+ + Encounter Details +--------+ + + + + | Date | Type | Department | Care Team | Description | +--------+ + + + + | 08/31/ | Telephone | [facility] | Adonis Hamm | Cough | | 2020 | | [facility] | E, DO [address] | | | | | [facility] [address] | [place], [place] | | | | [address] [place], | [address] | | | | | [place] [address] | [phone] | | | | | [phone] | | | +--------+ + + + [...] - Jo Ann Mejia CC CMA - 09/01/2019 6:00 PM PDT8 am does not work for her, she will go to [facility] tomorrow. QIANA Hough CMA elephone Encoun Adonis Schumacher DO - 09/01/2019 5:51 PM PDTShe should be seen. 8 AM tomorrow with ca, or [facility] anytime. Electronically signed by Adonis Hamm DO at 5:51 PM PDTTelephone Encounter - Jo Ann Mejia CC CMA - 09/01/2019 5:46 PM PD TI spoke with Una. She c/o productive cough x 3 weeks. She has tried OTC cough medicine (mucinex, nyquil, ramy tussin, and and ibuprofen prn) it is not helping. Patient denies fever (she is checking a co uple times a day), denies muscle aches, fatigue, and SOB. Patient states her ribs and and ab d hurt d/t coughing so much. Pt has taken NO meds today and temp is still WNL. Please advise. QIANA Hough CMA elephone Encoun ter Hillary Galaviz - 09/01/2019 12:41 PM PDTPt has had a cough for about 3 weeks and she h as taken OC but it is not working. She is not sleeping and needs something for the cough. Please call to discuss. Hillary Rae documented in this encount er Plan of Treatment Not on filedocumented as of this encounter Visit Diagnoses Not on filedocumented in this encounter"
--- OUTSIDE RECORDS SUMMARY | ~2020-01-05 | XMS | Encounter Summary ---
Demographics + + + | Address | [address] | | | [place] [address] | + + + | Home Phone | | + + + | Preferred Language | Unknown | + + + | Marital Status | | + + + | Bahai Affiliation | Unknown | + + + | Race | White | + + + | Ethnic Group | Not or | + + + Author + + + | Author | [facility] | | | and [place] | + + + | Organization | [facility] | | | [...] Team Providers + +------+ + | Care Laundry Laborer Name | Role | Phone | + [...] Description | +--------+--------+ + + + | 07/03/ | Refill | [place] [facility] | Shonda Arthur, | Medication Refill | | 2019 | | [facility] | BUSINESS CONTINUITY MANAGEMENT DIRECTOR [address] | | | | | [facility] | [place] [address] | | | | | [address] [place], | [phone] | | | | | [place] [address] | | | | | | [phone] | | | +--------+--------+ + + + [...] Encounter - Rosanna Hubbard CC CMA - 07/03/2018 5:25 PM PDTLAST OFFICE VISIT . QIANA Singh CMA documented in this encounter Plan of Treatment Not on filedocumented as of this encounter Visit Diagnoses Not on filedocumented in this encounter"
--- OUTSIDE RECORDS SUMMARY | ~2020-01-05 | XMS | Encounter Summary ---
Demographics + + + | Address | [address] | | | [place] [address] | + + + | Home Phone | | + + + | Preferred Language | Unknown | + + + | Marital Status | | + + + | Gnosticist Affiliation | Unknown | + + + | Race | White | + + + | Ethnic Group | Not or | + + + Author + + + | Author | [facility] | | | and [place] | + + + | Organization | [facility] | | | [...] Team Providers + +------+ + | Care Steeplechase Jockey Name | Role | Phone | + +------+ + | Adonis Hamm DO | PCP | | + +------+ + Reason for Visit +---------+--------+ + | Reason | Onset | Comments | | | Date | | +---------+--------+ + | Results | 04/22/ | | | | 2020 | | +---------+--------+ + Encounter Details +--------+ + + + + | Date | Type | Department | Care Team | Description | +--------+ + + + + | 04/22/ | Telephone | [place] [facility] | Adonis Hamm | Results | | 2020 | | [facility] | E, DO [address] | | | | | [facility] | [place], [place] | | | | | [address] [place], | [address] | | | | | [place] [address] | [phone] | | | | | [phone] | | | +--------+ + + + [...] Telephone Encounter - Galina Bundy CMA - 04/22/2019 5:21 PM PSTMade contact with pt re garding lab results. Pt was informed of most recent result notes. Pt acknowledged. Galina Bundy CMA elephone Encounter - Galina Bundy CMA - 04/22/2019 10:31 AM PSTAttempted to make contact with pt regarding lab results. No Answer. Per [facility] contact form a simple VM was left with call back instrcution s. Galina Bundy CMA elephone Encounter - Galina Bundy CMA - 04/22/2019 10:31 AM PST----- Message from Miles Vora DNP sent a t 04/22/2019 9:51 AM PST ----- Vitamin D level is low. Will order some high-dose vitamin D repletion therapy. Thyroid ap pears to be normal. Metabolic panel looks good. Minimal anemia is noted on the CBC. I rec ommend taking a multivitamin or over the counter iron supplementation and eating some high i alfred foods (red meats, spinach, green leafy vegetables, etc). I don't feel like prescription iron supplements are needed. I have ordered a repeat vitamin D lab that can be checked on ce the course of medication is completed. There were no other concerning problems.Electronically signed by Galina Bundy CMA at 07/2019 10:31 AM PSTdocumented in this encounter Plan of Treatment Not on filedocumented as of this encounter Visit Diagnoses Not on filedocumented in this encounter"
--- OUTSIDE RECORDS SUMMARY | ~2020-01-05 | XMS | Encounter Summary ---
Demographics + + + | Address | [address] | | | [place] [address] | + + + | Home Phone | | + + + | Preferred Language | Unknown | + + + | Marital Status | | + + + | Uatsdin Affiliation | Unknown | + + + | Race | White | + + + | Ethnic Group | Not or | + + + Author + + + | Author | [facility] | | | and [place] | + + + | Organization | [facility] | | | and [...] Team Providers + +------+ + | Care Link Trainer Maintenance Worker Name | Role | Phone | + +------+ + | Adonis Hamm DO | PCP | | + +------+ + Reason for Visit + +--------+ + | Reason | Onset | Comments | | | Date | | + +--------+ + | Medication Refill | 02/27/ | | | | 2019 | | + +--------+ + Encounter Details +--------+--------+ + + + | Date | Type | Department | Care Team | Description | +--------+--------+ + + + | 02/27/ | Refill | [place] [facility] | Adonis Hamm | Medication Refill | | 2019 | | [facility] | E, DO [address] | | | | | MED[facility] | [place], [place] | | | | | [address] [place], | [address] | | | | | [place] [address] | [phone] | | | | | [phone] | | | +--------+--------+ + + + [...] - Jo Ann Mejia CC CMA - 02/27/2019 9:24 AM PSTLabs and appt UTDEl ectronically signed by QIANA Aquino CMA at 02/27/2019 9:25 AM PSTTelephone Encounter - Edith Gallegos - 02/27/2019 9:09 AM PSTPt states she is changing pharmacies and is needi ng all current mediations sent to [facility] mail order pharmacy Please call with any questions Thanks Edith documented in t his encounter Plan of Treatment Not on filedocumented as of this encounter Visit Diagnoses + + | Diagnosis | + + | Mixed hyperlipidemia | + + documented in this encounter"
--- OUTSIDE RECORDS SUMMARY | ~2020-01-05 | XMS | Encounter Summary ---
Demographics + + + | Address | [address] | | | [place] [address] | + + + | Home Phone | | + + + | Preferred Language | Unknown | + + + | Marital Status | | + + + | Quaker Affiliation | Unknown | + + + | Race | White | + + + | Ethnic Group | Not or | + + + Author + + + | Author | [facility] | | | and [place] | + + + | Organization | [facility] | [...] Team Providers + +------+ + | Care Humidifier Operator Name | Role | Phone | [...] Description | +--------+--------+ + + + | 11/04/ | Refill | [place] [facility] | Adonis Hamm | Medication Refill | | 2018 | | [facility] | E, DO [address] | | | | | [facility] | [place], [place] | | | | | [address] [place], | [address] | | | | | [place] [address] | [phone] | | | | | [phone] | | | +--------+--------+ + + + [...] Encounter - Rosanna Hubbard CC CMA - 11/04/2018 2:24 PM PDTLAST OFFICE VISIT . QIANA Singh [...]
--- OUTSIDE RECORDS SUMMARY | ~2020-01-05 | XMS | Encounter Summary ---
Demographics + + + | Address | [address] | | | [place] [address] | + + + | Home Phone | | + + + | Preferred Language | Unknown | + + + | Marital Status | | + + + | Anabaptism Affiliation | Unknown | + + + | Race | White | + + + | Ethnic Group | Not or | + + + Author + + + | Author | [facility] | | | and [place] | + + + | Organization | [facility] | | | [...] Team Providers + +------+ + | Care Set Up Mechanic Coil Winding Machines Name | Role | Phone | + +------+ + | Adonis Hamm DO | PCP | | + +------+ + Reason for Visit +---------+--------+ + | Reason | Onset | Comments | | | Date | | +---------+--------+ + | Results | 10/01/ | CXR results done at [facility] a couple of days agao? | | | 2020 | | +---------+--------+ + Encounter Details +--------+ + + + + | Date | Type | Department | Care Team | Description | +--------+ + + + + | 10/01/ | Telephone | [place] [facility] | Adonis Hamm | Results (CXR results | | 2019 | | [facility] | E, DO [address] | done at St | | | | [facility] [address] | [place], [place] | Gal[place] a couple | | | | [address] [place], | [address] | of days agao?) | | | | [place] [address] | [phone] | | | | | [phone] | | | +--------+ + + + [...] this encounter Miscellaneous Notes Telephone Encounter - Princess Gonzalez, Flyer Builder - 10/05/2019 4:16 PM PDTSen t fax to [facility] requesting image results. Princess Gonzalez Flyer Builder Telephone Encounter - Nicole Granados CC CMA - 10/02/2019 5:12 PM PDTI have tried callin g both parties with no success. I let pt know as soon as we get those results, we will give her a phone call back. QIANA Whelan CMA TTelephone Encounter - Rosanna Hubbard CC CMA - 10/02/2019 4:53 PM PDTI do not have these r ecords, I called [facility] and left a message with medical records. You may want to nichole l them again here shortly and ask for the charge nurse to give report to Miles. I asked fo r the faxed report to be sent to [facility]. [facility] phone is [phone]. QIANA Singh CMA elephone Encounte r - Miles Vora DNP - 10/02/2019 3:55 PM PDTPlease check to make sure that the chest x- ray results are not in Dr. Hamm's inbox. Inquire with the patient if the chest x-ray was ordered by Dr. Hamm. If it was ordered by a different clinician, the patient will need to follow-up with the ordering provider. I currently do not have any results to review with the patient. elephone Encounter - Nicole Granados CC CMA - 10/02/2019 9:59 AM PDTPlease advise. I couldn't fi nd anything in chart. Thank you. QIANA Whelan CMA elephone Encounter - Kasie Aguirre - 0 9:54 AM PDTPatient had a CXR a couple of days ago at [facility] and she wants to know i f the results are back and what results are. Please advise Kasie Aguirre documented in this encou nter Plan of Treatment Not on filedocumented as of this encounter Visit Diagnoses Not on filedocumented in this encounter"
--- OUTSIDE RECORDS SUMMARY | ~2020-01-05 | XMS | Encounter Summary ---
Demographics + + + | Address | [address] | | | [place] [address] | + + + | Home Phone | | + + + | Preferred Language | Unknown | + + + | Marital Status | | + + + | Adventism Affiliation | Unknown | + + + | Race | White | + + + | Ethnic Group | Not or | + + + Author + + + | Author | [facility] | | | and [place] | + + + | Organization | [facility] | | | [...] Team Providers + +------+ + | Care Fbi Profiler Name | Role | Phone | + +------+ + | Adonis Hamm DO | PCP | | + +------+ + Reason for Visit +--------+--------+ + | Reason | Onset | Comments | | | Date | | +--------+--------+ + | Other | 12/06/ | exposed to covid 19 | | | 2020 | | +--------+--------+ + Encounter Details +--------+ + + + + | Date | Type | Department | Care Team | Description | +--------+ + + + + | 12/06/ | Telephone | [place] [facility] | Adonis Hamm | Other (exposed to | | 2019 | | [facility] | E, DO [address] | covid 19) | | | | MEDICAL CL[facility] [address] | [place], [place] | | | | | [address] [place], | [address] | | | | | [place] [address] | [phone] | | | | | [phone] | | | +--------+ + + + [...] Telephone Encounter - Jo Ann Mejia CC GUEST RELATIONS OFFICER - 12/07/2019 11:47 AM PDTPt was exposed to C OVID19 on 12/04. Pt asked about testing. Pt is asymptomatic. Per Dr Hamm, patient was told to isolate for 14 days and come out of isolation if no sxs and no fever for 24 hours. Pt was agreeable with this plan. QIANA Hough CMA elephone David Kaur - 12/07/2019 10:16 AM PDTPt called and was exposed to Covid 19 last we ek, please call and advise/robin documented in this encounter Plan of Treatment Not on filedocumented as of this encounter Visit Diagnoses Not on filedocumented in this encounter"
--- OUTSIDE RECORDS SUMMARY | ~2020-01-05 | XMS | Encounter Summary ---
Demographics + + + | Address | [address] | | | [place] [address] | + + + | Home Phone [...] + + + | Author | [facility] | | | and [place] | + + + | Organization | [facility] | | | [...] Team Providers + +------+ + | Care Hair Dresser Name | Role | Phone | + +------+ + | Adonis Hamm DO | PCP | | + +------+ + Reason for Visit + +--------+ + | Reason | Onset | Comments | | | Date | | + +--------+ + | Lab Results | 06/10/ | [facility] | | | 2020 | | + +--------+ + Encounter Details +--------+ + + + + | Date | Type | Department | Care Team | Description | +--------+ + + + + | 06/10/ | Telephone | [place] [facility] | Adonis Hamm | Lab Results () | | 2020 | | [facility] | E, DO [address] | | | | | MED[facility] [address] | [place], [place] | | | | | [address] [place], | [address] | | | | | [place] [address] | [phone] | | | | | [phone] | | | +--------+ + + + [...] - Jo Ann Mejia CC CMA - 06/11/2019 8:50 AM PDTPatient informed. P t verbalized understanding and had no further questions. I encouraged callback with question s or further concerns. QIANA Hough CMA elephone Encoun ter - Jo Ann Mejia CC CMA - 06/11/2019 8:49 AM PDT----- Message from Adonis Hamm DO sent at 06/11/2019 6:56 AM PDT ----- normal documented in this encounter Plan of Treatment Not on filedocumented as of this encounter Visit Diagnoses Not on filedocumented in this encounter"
--- OUTSIDE RECORDS SUMMARY | ~2020-01-05 | XMS | Encounter Summary ---
Demographics + + + | Address | [address] | | | [place] [address] | + + + | Home Phone | | + + + | Preferred Language | Unknown | + + + | Marital Status | | + + + | Hoahaoism Affiliation | Unknown | + + + | Race | White | + + + | Ethnic Group | Not or | + + + Author + + + | Author | [facility] | | | and [place] | + + + | Organization | [facility] | | [...] Team Providers + +------+ + | Care Nat Instructor Name | Role | Phone | + +------+ + | Adonis Hamm DO | PCP | | + +------+ + Reason for Visit +--------+--------+ + | Reason | Onset | Comments | | | Date | | +--------+--------+ + | LABS | 04/14/ | | | | 2020 | | +--------+--------+ + Encounter Details +--------+ + + + + | Date | Type | Department | Care Team | Description | +--------+ + + + + | 04/14/ | Telephone | [place] [facility] | Adonis Hamm | LABS | | 2020 | | [facility] | E, DO [address] | | | | | MED[facility] | [place], [place] | | | | | [address] [place], | [address] | | | | | [place] [address] | [phone] | | | | | [phone] | | | +--------+ + + + [...] this encounter Miscellaneous Notes Telephone Encounter - David Ghosh - 04/15/2019 9:31 AM PSTPt is scheduled with Miles pedro 2-4-20/Virginialectronically signed by David Ghosh at 04/15/2019 9:32 AM PSTTelephone En Galina Cowan CMA - 04/14/2019 4:02 PM PSTUnable to reach pt. Left brief messa ge for pt to call back. If pt calls back she needs to schedule an appointment. Galina Bundy CMA elephone Encounter - Miles Vora DNP - 04/14/2019 3:52 PM PSTPatient needs an appointment. If he feels th at he needs to be seen in the next couple weeks, feel free to schedule him on my schedule, o tiffanie schedule him on Dr. Hamm's first available appointment. elephone Encounter - David Ghosh - 020 2:58 PM PSTPt called and has not been feeling good some time, pt was asking for a compl ete blood panel to be sent to [facility] in [place], please call pt with questions or if yo u want to discuss this with pt/robin 3 :00 PM PSTdocumented in this encounter Plan of Treatment Not on filedocumented as of this encounter Visit Diagnoses Not on filedocumented in this encounter"
--- OUTSIDE RECORDS SUMMARY | ~2020-01-05 | XMS | Encounter Summary ---
Demographics + + + | Address | [address] | | | [place] [address] | + + + | Home Phone | | + + + | Preferred Language | Unknown | + + + | Marital Status | | + + + | Anabaptist Affiliation | Unknown | + + + | Race | White | + + + | Ethnic Group | Not or | + + + Author + + + | Author | [facility] | | | and [place] | + + + | Organization | [facility] | | [...] Team Providers + +------+ + | Care Educational Specialist Name | Role | Phone | + [...] Description | +--------+--------+ + + + | 12/31/ | Refill | [place] [facility] | Adonis Hamm | Medication Refill | | 2017 | | [facility] | E, DO [address] | | | | | [facility] [address] | [place], [place] | | | | | [address] [place], | [address] | | | | | [place] [address] | [phone] | | | | | [phone] | | | +--------+--------+ + + + [...] Encounter - Rosanna Hubbard CC CMA - 12/31/2017 11:23 AM PDTLAST OFFICE VISIT , ESTABLISHING 02/03/2018. [...]
--- OUTSIDE RECORDS SUMMARY | ~2020-01-05 | XMS | Encounter Summary ---
Demographics + + + | Address | [address] | | | [place] [address] | + + + | Home Phone [...] Team Providers + +------+ + | Care Warp Doffer Name | Role | Phone | + +------+ + | Adonis Hamm DO | PCP | | + +------+ + Reason for Visit + + + | Reason | Comments | + + + | Establish Care | Re-establish care, discuss depression medication. Pt reports | | | taking car eof her 95 yo mother who recentky had a stroke. | + + + Encounter Details +--------+---------+ + + + | Date | Type | Department | Care Team | Description | +--------+---------+ + + + | 02/03/ | Office | [facility] | Adonis Hamm | Mixed hyperlipidemia | | 2018 | Visit | [facility] | E, DO [address] | (Primary Dx); Low | | | | [facility] | [place], [place] | vitamin D level; | | | [address] [place], | [address] | Impaired fasting | | | | [place] [address] | [phone] | glucose; Nocturia | | | | [phone] | | | +--------+---------+ + + + [...] + + + | Blood Pressure | 130/70 | 02/03/2018 1:59 PM | | | | | PST | | + + + + + | Pulse | 78 | 02/03/2018 1:59 PM | | | | | PST | | + + + + + | Temperature | 36.7 C (98.1 F) | 02/03/2018 1:59 PM | | | | | PST | | + + + + + | Respiratory Rate | 18 | 02/03/2018 1:59 PM | | | | | PST | | + + + + + | Oxygen Saturation | 98% | 02/03/2018 1:59 PM | | | | | PST | | + + + + + | Inhaled Oxygen | - | - | | | Concentration | | | | + + + + + | Weight | 70.3 kg (155 lb) | 02/03/2018 1:59 PM | | | | | PST | | + + + + + | Height | 157.5 cm (5' 2") | 02/03/2018 1:59 PM | | | | | PST | | + + + + + | Body Mass Index | 28.35 | 02/03/2018 1:59 PM | | | | | PST | | + + + + + documented in this encounter Patient Instructions Patient Instructions Noemy Aragon - 02/03/2018 2:30 PM PST-Continue current medications -Go to [facility] in [place] while fasting for blood work -Follow up anytime needed, doors always open -Read Being Mortal documented in this encounter Progress Notes Rosanna Hubbard, CC HEATING REPAIR TECHNICIAN - 02/03/2018 2:30 PM Fish Manuel presents today with Chief Dandy huerta of: Re-establish care, discuss depression medication. Pt reports taking car eof he r 95 yo mother who recentky had a stroke. Current medications verified with her at time of visit. Pt currently shows no s/s of distress, shortness of breath. Vital signs: BP 130/70 | Pulse 78 | Temp 36.7 C (98.1 F) (Oral) | Resp 18 | Ht 1.57 5 m (5' 2") | Wt 70.3 kg (155 lb) | SpO2 98% | ? No | BMI 28.35 kg/m Labs Obtained per protocol: None. Verbal Report given to: Adonis Hamm DO. QIANA Singh CMA Adonis Choi DO - 02/03/2018 2:30 PM PST Patient ID: Una Manuel is a 67 y.o. year old female Chief Complaint: Chief Complaint Patient presents with Establish Care Re-establish care, discuss depression medication. Pt reports taking car eof her 95 yo mo ther who recentky had a stroke. Assessment Mixed hyperlipidemia (Primary) - CBC with Differential; Future; Expected date: 02/03/2018 - Comprehensive Metabolic Panel; Future; Expected date: 02/03/2018 - Lipid Panel; Future; Expected date: 02/03/2018 - TSH; Future; Expected date: 02/03/2018 Low vitamin D level - Vitamin D, Deficiency Screen (25-Hydroxy); Future; Expected date: 02/03/2018 Impaired fasting glucose - Hemoglobin A1C; Future; Expected date: 02/03/2018 Nocturia - Urinalysis with Microscopic with Culture if Indicated; Future; Expected date: 018 Other orders - Clotrimazole-Betamethasone; Apply topically 2 times daily. Dispense: 15 g; Refill: 1 Plan -Continue current medications -Go to [facility] in [place] while fasting for blood work -Follow up anytime needed, doors always open -Read Being Mortal 40 minute visit with > 50% time spent in counseling. Subjective: JAZZ Heart presents to the clinic today to re-establish care with me from [facility], and discuss medication for depression. She is concerned about her weight. She is eating boiled eggs and nuts, but she can not eat them all the time. Her energy is up and down. She will get woke up every once in a while fro m her mother getting up. She will need to get up once nightly to urinate. Her RA is better being back on Methotrexate. She has a hard time opening bottle caps and ca ns. She has lower strength. She use to have pain in the bottom of her feet. She has one spot on her foot but it is Osteoarthritis. She is caring for her 95 year old mother, who has a stroke. She will help with bathing and cooking. She is taking one day at a time. She is working 3 days a week to get a break outsid e of the house. Her daughter comes in 2 days and a caregiver comes in 2 days a week to help care. Current Outpatient Prescriptions Medication Sig Dispense Refill alendronate (FOSAMAX) 10 mg tablet TK 1 T PO QD. REMAIN UPRIGHT FOR 30 MINUTES. DO NOT TAKE WITH FOOD FOR 30 MINUTES 3 buPROPion (WELLBUTRIN XL) 300 mg 24 hr tablet TAKE 1 TABLET BY MOUTH EVERY DAY (Patient taking differently: TAKE 1 TABLET BY Mouth 1-2 times daily) 90 tablet 0 calcium, as carbonate, (CALTRATE) 600 mg tablet Take 600 mg by mouth 2 times daily (wit h breakfast & dinner). Cetirizine HCl (ZYRTEC ALLERGY) 10 MG liqui-gel Take 10 mg by mouth Daily. clotrimazole-betamethasone (LOTRISONE) cream Apply topically 2 times daily. folic acid (FOLVITE) 400 MCG tablet Take 400 mcg by mouth Daily. ibuprofen ([employer] IBUPROFEN) 200 mg tablet Take 200 mg by mouth every 6 hours as needed fo r Pain. lisinopril-hydrochlorothiazide (PRINZIDE,ZESTORETIC) 20-12.5 MG per tablet TAKE 1 TABLE T BY MOUTH EVERY DAY 90 tablet 1 methotrexate 2.5 mg tablet Take 7.5 mg by mouth Once a week. Misc Natural Products (GLUCOSAMINE CHOND COMPLEX/MSM) TABS Take by mouth as needed. [place]-3 Fatty Acids (OMEGA-3 PO) Take 1,040 mg by mouth Daily. raNITIdine (ZANTAC) 150 mg tablet Take 150 mg by mouth 2 times daily. simvastatin (ZOCOR) 40 mg tablet TAKE 1 TABLET BY MOUTH EVERY DAY 90 tablet 0 No current facility-administered medications for this visit. Patient Active Problem List Diagnosis Anxiety and depression Dermatitis Essential hypertension Mixed hyperlipidemia Insomnia Osteoporosis, post-menopausal Rheumatoid arthritis Long-term use of high-risk medication Primary osteoarthritis involving multiple joints Low vitamin D level Impaired fasting glucose Family History Problem Relation Age of Onset Diabetes Father Borderline Past Surgical History: Procedure Laterality Date COLONOSCOPY 01/22/2017 JARAD AND BSO TONSILLECTOMY Social History Social History Marital status: Spouse name: N/A Number of children: N/A Years of education: N/A Occupational History Not on file. Social History Main Topics Smoking status: Never Smoker Smokeless tobacco: Never Used Alcohol use 1.2 oz/week 2 Cans of beer per week Drug use: No Sexual activity: Yes Partners: Male Other Topics Concern Not on file Social History Narrative No narrative on file Allergies Allergen Reactions Hydrocodone-Acetaminophen Nausea And Vomiting Review of Systems Constitutional: Negative for fatigue and fever. Respiratory: Negative for cough, chest tightness, shortness of breath and wheezing. Cardiovascular: Negative for chest pain and palpitations. Gastrointestinal: Negative for abdominal pain, nausea and vomiting. Musculoskeletal: Negative for gait problem and myalgias. Skin: Osteoarthritis spot on her foot Neurological: Negative for dizziness, syncope and headaches. Psychiatric/Behavioral: The patient is not nervous/anxious. Objective: Vitals: BP 130/70 | Pulse 78 | Temp 36.7 C (98.1 F) (Oral) | Resp 18 | Ht 1.575 m (5' 2") | Wt 70.3 kg (155 lb) | SpO2 98% | ? No | BMI 28.35 kg/m Physical Exam Constitutional: She appears well-developed and well-nourished. HENT: Head: Atraumatic. Eyes: Pupils are equal, round, and reactive to light. EOM are normal. Cardiovascular: Normal rate, regular rhythm and normal heart sounds. Pulmonary/Chest: Effort normal and breath sounds normal. Abdominal: Soft. Bowel sounds are normal. Neurological: She is alert. Psychiatric: She has a normal mood and affect. Entered by Noemy Aragon, acting as scribe for Dr. Noris DO. The documentation recorded by the scribe accurately reflects the service I personally perfo ed and the decisions made by me. Dr. Adonis Hamm DO. 02/03/2018 14:36Electronically signed by DO cinthia Can 02/03/2018 3:20 PM PSTdocumented in this encounter Plan of Treatment + +------+--------+ + + | Name | Type | Priori | Associated Diagnoses | Order Schedule | | | | ty | | | + +------+--------+ + + | CBC with | Lab | Routin | Mixed | Expected: | | Differential | | e | hyperlipidemia | 02/03/2018, Expires: | | | | | | 02/03/2019 | + +------+--------+ + + | Comprehensive | Lab | Routin | Mixed | Expected: | | Metabolic Panel | | e | hyperlipidemia | 02/03/2018, Expires: | | | | | | 02/03/2019 | + +------+--------+ + + | Lipid Panel | Lab | Routin | Mixed | Expected: | | | | e | hyperlipidemia | 02/03/2018, Expires: | | | | | | 02/03/2019 | + +------+--------+ + + | TSH | Lab | Routin | Mixed | Expected: | | | | e | hyperlipidemia | 02/03/2018, Expires: | | | | | | 02/03/2019 | + +------+--------+ + + | Urinalysis with | Lab | Routin | Nocturia | Expected: | | Microscopic with | | e | | 02/03/2018, Expires: | | Culture if Indicated | | | | 02/03/2019 | + +------+--------+ + + | Hemoglobin A1C | Lab | Routin | Impaired fasting | Expected: | | | | e | glucose | 02/03/2018, Expires: | | | | | | 02/03/2019 | + +------+--------+ + + | Vitamin D, | Lab | Routin | Low vitamin D | Expected: | | Deficiency Screen | | e | level | 02/03/2018, Expires: | | (25-Hydroxy) | | | | 02/03/2019 | + +------+--------+ + + documented as of this encounter Procedures + +--------+ + + + | Procedure Name | Priori | Date/Time | Associated Diagnosis | Comments | | | ty | | | | + +--------+ + + + | LABS - EXTERNAL SCAN | | 03/19/2018 | | Results for this | | | | 12:00 AM | | procedure are in the | | | | PST | | results section. | + +--------+ + + + | THYROID STIMULATING | Routin | 02/17/2018 | | Results for this | | HORMONE 3RD GEN | e | 8:37 AM | | procedure are in the | | | | PST | | results section. | + +--------+ + + + | URINALYSIS WITH | Routin | 02/17/2018 | | Results for this | | MICROSCOPIC WITH | e | 8:37 AM | | procedure are in the | | CULTURE IF INDICATED | | PST | | results section. | + +--------+ + + + | LIPID PANEL | Routin | 02/17/2018 | | Results for this | | | e | 8:37 AM | | procedure are in the | | | | PST | | results section. | + +--------+ + + + | VITAMIN D, | Routin | 02/17/2018 | | Results for this | | DEFICIENCY SCREEN | e | 8:37 AM | | procedure are in the | | (25-HYDROXY) | | PST | | results section. | + +--------+ + + + | CBC WITH | Routin | 02/17/2018 | | Results for this | | DIFFERENTIAL | e | 8:37 AM | | procedure are in the | | | | PST | | results section. | + +--------+ + + + | CULTURE, URINE | Routin | 02/17/2018 | | Results for this | | | e | 8:37 AM | | procedure are in the | | | | PST | | results section. | + +--------+ + + + | HEMOGLOBIN A1C | Routin | 02/17/2018 | | Results for this | | | e | 8:37 AM | | procedure are in the | | | | PST | | results section. | + +--------+ + + + | COMPREHENSIVE | Routin | 02/17/2018 | | Results for this | | METABOLIC PANEL | e | 8:37 AM | | procedure are in the | | | | PST | | results section. | + +--------+ + + + documented in this encounter Results LABS - EXTERNAL SCAN (03/19/2018 12:00 AM PST) + + + | Narrative | Performed At | + + + | Ordered by an | | | unspecified provider. | | + + + Culture, Urine (02/17/2018 8:37 AM PST) + + + + + + | Component | Value | Ref Range | Performed | Pathologist | | | | | At | Signature | + + + + + + | CULTURE | SEE NOTE (A)Comment: | | REFERENCE | | | BACTERIA | URINE CULTURE | | LAB | | | URINE | 02/18/2018 08:45 AM | | [facility] | | | | No growth after | | | | | | overnight incubation. | | | | | | 02/19/2018 06:55 AM | | | | | | Over 100,000 CFU/mL | | | | | | Lactose Manager Route , | | | | | | Identification and | | | | | | susceptibility to | | | | | | follow. 02/20/2018 | | | | | | 03:08 PM Lactose | | | | | | Manager Route identified as | | | | | | Escherichia coli | | | | | | SUSCEPTIBILITY/JOAN 1 | | | | | | Escherichia coli | | | | | | SUSCEPTIBLE ug/mL | | | | | | INTERMEDIATE ug/mL | | | | | | RESISTANT ug/mL | | | | | | | | | | | | | | | | | | | | | | | | AMOX/CLAV ACID 4 | | | | | | AMPICILLIN 16 | | | | | | CIPROFLOXACIN | | | | | | >=4 PIPERACILLIN/ | | | | | | TA<=4 | | | | | | | | | | | | LEVOFLOXACIN >=8 | | | | | | CEFAZOLIN <=4 | | | | | | | | | | | | | | | | | | | | | | | | CEFTRIAXONE <=1 | | | | | | | | | | | | | | | | | | | | | | | | CEFEPIME <=1 | | | | | | | | | | | | | | | | | | | | | | | | AZTREONAM <=1 | | | | | | | | | | | | | | | | | | | | | | | | ERTAPENEM <=0.5 | | | | | | | | | | | | | | | | | | | | | | | | IMIPENEM 0.5 | | | | | | | | | | | | | | | | | | | | | | | | MEROPENEM | | | | | | <=0.25 | | | | | | | | | | | | | | | | | | GENTAMICIN <=1 | | | | | | | | | | | | | | | | | | | | | | | | TETRACYCLINE 2 | | | | | | | | | | | | | | | | | | | | | | | | NITROFURANTOIN <=16 | | | | | | | | | | | | | | | | | | TMP/ | | | | | | SMX <=20 | | | | | | | | | | | | | | | | | | | | | | | | Testing Performed at: | | | | | | [address] [place] [address]; | | | | | | [place], [place] | | | | | | [id number] Phone: | | | | | | | | | | + + + + + + + + | Specimen | + + | | + + + + + + + | Performing | Address | City/State/Zipcode | Phone Number | | Organization | | | | + + + + + | REFERENCE LAB | [address] | [place] | [phone] | | [facility] | | [address] | | + + + + + | REFERENCE LAB | [address] [place] | [place] | [phone] | | [facility] | | [address] | | + + + + + Thyroid Stimulating Hormone 3rd Gen (02/17/2018 8:37 AM PST) + + + + + + | Component | Value | Ref Range | Performed | Pathologist | | | | | At | Signature | + + + + + + | TSH | 2.30Comment: Biotin in | 0.270 - 4.20 | REFERENCE | | | | specimens taken from | | LAB | | | | patients on high-dose | | [facility] | | | | biotin therapy or | | | | | | supplements may intefere | | | | | | with this test and | | | | | | cause inaccurate test | | | | | | results. It is | | | | | | recommended that for | | | | | | patients receiving | | | | | | therapy with high biotin | | | | | | doses (> 5 mg/day), no | | | | | | laboratory test specimen | | | | | | should be collected | | | | | | until at least 8 hours | | | | | | after the last biotin | | | | | | administration.Instructi | | | | | | ons Received: Copy To: | | | | | | SCARLETT DE LA PAZ M.D. | | | | + + + + + + + + | Specimen | + + | | + + + + + | Narrative | Performed At | + + + | Testing Performed at: [facility] [place] [facility] CLIA: [id number] [address] | REFERENCE LAB | | [place] [address] | [facility] | + + + + + + + + | Performing | Address | City/State/Zipcode | Phone Number | | Organization | | | | + + + + + | REFERENCE LAB | [address] | [place], [place] | [phone] | | [facility] | | [address] | | + + + + + | REFERENCE LAB | [address] | [place], [place] | [phone] | | [facility] | | [address] | | + + + + + Vitamin D, Deficiency Screen (25-Hydroxy) (02/17/2018 8:37 AM PST) + + + + + + | Component | Value | Ref Range | Performed | Pathologist | | | | | At | Signature | + + + + + + | 25-HYDROXY | 25 (L)Comment: | 30 - 100 | REFERENCE | | | D3 | Deficiency: Less than | | LAB | | | | 10 ng/mLInsufficiency: | | [facility] | | | | 10-29 ng/mLOptimum | | | | | | Level: 30-100 | | | | | | ng/mLPossible Toxicity: | | | | | | Greater than 100 | | | | | | ng/mLInstructions | | | | | | Received: Copy To: ANA CRISTINA | | | | | | SCARLETT Jaeger | | | | + + + + + + + + | Specimen | + + | | + + + + + | Narrative | Performed At | + + + | Testing Performed at: [facility] JIM[address]: [id number] - [address] | REFERENCE LAB | | [place] [address] | [facility] | + + + + + + + + | Performing | Address | City/State/Zipcode | Phone Number | | Organization | | | | + + + + + | REFERENCE LAB | [address] | [place] | [phone] | | [facility] | | [address] | | + + + + + | REFERENCE LAB | [address] | [place] | [phone] | | [facility] | | [address] | | + + + + + Comprehensive Metabolic Panel (02/17/2018 8:37 AM PST) + + + + + + | Component | Value | Ref Range | Performed | Pathologist | | | | | At | Signature | + + + + + + | Sodium | 139 | 132 - 143 | REFERENCE | | | | | | LAB | | | | | | [facility] | | + + + + + + | Potassium | 4.2 | 3.6 - 5.1 | REFERENCE | | | | | | LAB | | | | | | [facility] | | + + + + + + | Chloride | 103 | 95 - 112 | REFERENCE | | | | | | LAB | | | | | | [facility] | | + + + + + + | Carbon | 22 | 19 - 31 | REFERENCE | | | dioxide | | | LAB | | | | | | [facility] | | + + + + + + | Anion Gap | 18.2 | 7 - 21 | REFERENCE | | | | | | LAB | | | | | | [facility] | | + + + + + + | Glucose | 118 (H) | 70 - 100 | REFERENCE | | | | | | LAB | | | | | | [facility] | | + + + + + + | BUN | 21 | 6 - 23 | REFERENCE | | | | | | LAB | | | | | | [facility] | | + + + + + + | Creatinine | 0.82 | 0.70 - 1.25 | REFERENCE | | | | | | LAB | | | | | | [facility] | | + + + + + + | GFR | 70 | | REFERENCE | | | ESTIMATE | | | LAB | | | (REF) | | | [facility] | | + + + + + + | BUN/Creatin | 25.6 | 6.0 - 28.6 | REFERENCE | | | ine Ratio | | | LAB | | | | | | [facility] | | + + + + + + | Calcium | 9.8 | 8.5 - 10.3 | REFERENCE | | | | | | LAB | | | | | | [facility] | | + + + + + + | AST (SGOT) | 15 | 13 - 39 | REFERENCE | [...] + + + | ALK PHOS | 76 | 31 - 130 | REFERENCE | [...] + + + + | Protein, | 6.3 | 6.0 - 8.3 | REFERENCE | | | Total | | | LAB | | | | | | [facility] | | + + + + + + | Albumin | 4.3 | 3.5 - 5.0 | REFERENCE | | | | | | LAB | | | | | | [facility] | | + + + + + + | Globulin | 2.0 | 1.8 - 3.5 | REFERENCE | [...] of | | | | | | 10/03/2017.Instructions | | | | | | Received: Copy To: ANA CRISTINA | | | | | | SCRALETT Jaeger | | | | + + + + + + + + | Specimen | + + | | + + + + + | Narrative | Performed At | + + + | Testing Performed at: [facility] CLIA: [id number] - [address] | REFERENCE LAB | | [place] [address] | [facility] | + + + + + + + + | Performing | Address | City/State/Zipcode | Phone Number | | Organization | | | | + + + + + | REFERENCE LAB | [address] | [place], [place] | [phone] | | [facility] | | [address] | | + + + + + | REFERENCE LAB | [address] [facility] [address] [facility] | [place], [place] | [phone] | | [facility] | | [address] | | + + + + + Lipid Panel (02/17/2018 8:37 AM PST) + + + + + + | Component | Value | Ref Range | Performed | Pathologist | | | | | At | Signature | + + + + + + | Cholesterol | 224 (H) | OPT: <200 | REFERENCE | | | | | | LAB | | | | | | [facility] | | + + + + + + | Triglycerid | 283 (H) | 30 - 150 | REFERENCE | | | es | | | LAB | | | | | | [facility] | | + + + + + + | HDL | 35.2 (L) | OPT: >40 | REFERENCE | | | Cholesterol | | | LAB | | | | | | [facility] | | + + + + + + | LDL | 132 (H) | OPT: <100 | REFERENCE | | | Cholesterol | | | LAB | | | | | | [facility] | | + + + + + + | Cholesterol | 57 (H) | 4 - 40 | REFERENCE | | | in VLDL | | | LAB | | | | | | [facility] | | + + + + + + | Chol/HDL | 6.4 (H) | OPT: <4.44 | REFERENCE | | | Ratio | | | LAB | | | | | | [facility] | | + + + + + + | Non-HDL | 189 (H)Comment: | OPT: <130 | REFERENCE | | | Cholesterol | Instructions Received: | | LAB | | | | Copy To: ANA CRISTINA Jaeger, | | [facility] | | | | SCARLETT | | | | | |Copy To: SCARLETT DE LA PAZ M.D. | | | | | | | | | | + + + + + + + + | Specimen | + + | | + + + + + | Narrative | Performed At | + + + | Testing Performed at: [facility] [address]: [id number] - [address] | REFERENCE LAB | | [place] [address] | [facility] | + + + + + + + + | Performing | Address | City/State/Zipcode | Phone Number | | Organization | | | | + + + + + | REFERENCE LAB | [address] | [place], [place] | [phone] | | [facility] | | [address] | | + + + + + | REFERENCE LAB | [address] | [place] | [phone] | | [facility] | | [address] | | + + + + + Urinalysis with Microscopic with Culture if Indicated (02/17/2018 8:37 AM PST) + + + + + + | Component | Value | Ref Range | Performed | Pathologist | | | | | At | Signature | + + + + + + | Collection | CLEAN CATCH | | REFERENCE | | | | | | LAB | | | | | | [facility] | | + + + + + + | Color, UA | YELLOW | | REFERENCE | | | | | | LAB | | | | | | [facility] | | + + + + + + | Clarity, | SLIGHTLYCLOUDY | | REFERENCE | | | Urine | | | LAB | | | | | | [facility] | | + + + + + + | Specific | 1.026 | 1.005 - 1.030 | REFERENCE | | | [place] | | | LAB | | | | | | [facility] | | + + + + + + | pH, | 5 | 5 - 9 | REFERENCE | | | Scalp | | | LAB | | | | | | [facility] | | + + + + + + | Protein, UA | NEGATIVE | negative | REFERENCE | | | | | | LAB | | | | | | [facility] | | + + + + + + | Glucose, UA | NORMAL | normal | REFERENCE | | | | | | LAB | | | | | | [facility] | | + + + + + + | Ketones, UA | NEGATIVE | negative | REFERENCE | | | | | | LAB | | | | | | [facility] | | + + + + + + | Bilirubin, | NEGATIVE | negative | REFERENCE | | | UA | | | LAB | | | | | | [facility] | | + + + + + + | Blood, UA | NEGATIVE | negative | REFERENCE | | | | | | LAB | | | | | | [facility] | | + + + + + + | Nitrite, UA | POSITIVE (H) | negative | REFERENCE | | | | | | LAB | | | | | | [facility] | | + + + + + + | Urobilinoge | NORMAL | normal | REFERENCE | | | n, Ur | | | LAB | | | | | | [facility] | | + + + + + + | Leukocyte | MODERATE | negative | REFERENCE | | | esterase, | | | LAB | | | UA | | | [facility] | | + + + + + + | Other Casts | NEGATIVE | 0-1+ Hyaline | REFERENCE | | | | | | LAB | | | | | | [facility] | | + + + + + + | WBC, UA | 30 (H) | 0 - 4 | REFERENCE | | | | | | LAB | | | | | | [facility] | | + + + + + + | RBC, UA | 5 (H) | 0 - 4 | REFERENCE | | | | | | LAB | | | | | | [facility] | | + + + + + + | Squamous | SQUAMOUS 1+ | 0-1+ Squamous | REFERENCE | | | epithelial, | | | LAB | | | UA | | | [facility] | | + + + + + + | CRYSTAL UA | NEGATIVE | 0-1+ | REFERENCE | | | | | | LAB | | | | | | [facility] | | + + + + + + | Bacteria, | 3+Comment: Instructions | negative | REFERENCE | | | UA | Received: Copy To: | | LAB | | | | SCARLETT DE LA PAZ M.D. | | [facility] | | | |Instructions Received: | | | | | |Copy To: SCARLETT DE LA PAZ M.D. | | | | | | | | | | + + + + + + + + | Specimen | + + | | + + + + + | Narrative | Performed At | + + + | Testing Performed at: [facility] CLIA: [id number] - [address] | REFERENCE LAB | | [place] [address] | [facility] | + + + + + + + + | Performing | Address | City/State/Zipcode | Phone Number | | Organization | | | | + + + + + | REFERENCE LAB | [address] | [place] | [phone] | | [facility] | | [address] | | + + + + + | REFERENCE LAB | [address] | [place] | [phone] | | [facility] | | [address] | | + + + + + Hemoglobin A1C (02/17/2018 8:37 AM PST) + + + + + + | Component | Value | Ref Range | Performed | Pathologist | | | | | At | Signature | + + + + + + | Hemoglobin | 5.2 | | REFERENCE | | | A1c | | | LAB | | | | | | [facility] | | + + + + + + | Estimated | 103Comment: | | REFERENCE | | | Average | Reference Range for | | LAB | | | Glucose | HEMOGLOBIN A1c: | | [facility] | | | | Non-Diabetic | | | | | | <5.7% | | | | | | Increased Risk for | | | | | | Diabetes 5.7% - 6.4% | | | | | | Diagnostic for | | | | | | Diabetes >6.4 | | | | | | Diabetic Goal | | | | | | <7.0%These | | | | | | values are for | | | | | | non- individuals | | | | | | according to the | | | | | | [place] [employer] | | | | | | Association. 'Diabetes | | | | | | Care. | | | | | | 2009;33(suppl):S15-S61.' | | | | | | Hb A1C results may be | | | | | | falsely decreased in the | | | | | | presence of conditions | | | | | | that shorten red cell | | | | | | survival such as the | | | | | | presence of unstable | | | | | | hemoglobins or hemolytic | | | | | | anemia. Results may be | | | | | | falsely elevated in the | | | | | | presence of Iron | | | | | | deficiency | | | | | | anemia.Instructions | | | | | | Received: Copy To: ANA CRISTINA | | | | | | SCARLETT Jaeger | | | | + + + + + + + + | Specimen | + + | | + + + + + | Narrative | Performed At | + + + | Testing Performed at: [facility] CLIA: [id number] - 6793 | REFERENCE LAB | | [place] [address] | [facility] | + + + + + + + + | Performing | Address | City/State/Zipcode | Phone Number | | Organization | | | | + + + + + | REFERENCE LAB | [facility] | [place] | [phone] | | [place] [facility] [place] | | [address] | | + + + + + | REFERENCE LAB | [facility] [place] | [place] | [phone] | | [facility] | | [address] | | + + + + + CBC with Differential (02/17/2018 8:37 AM PST) + + + + + + | Component | Value | Ref Range | Performed | Pathologist | | | | | At | Signature | + + + + + + | WBC | 7.2 | 4.5 - 11.0 | REFERENCE | | | | | | LAB | | | | | | [facility] | | + + + + + + | Red Blood | 4.01 | 3.8 - 5.1 | REFERENCE | | | Cells | | | LAB | | | | | | [facility] | | + + + + + + | Hemoglobin | 12.8 | 12.0 - 16.0 | REFERENCE | | | | | | LAB | | | | | | [facility] | | + + + + + + | Hct | 38.0 | 35 - 45 | REFERENCE | | | | | | LAB | | | | | | [facility] | | + + + + + + | MCV | 94.9 | 81 - 99 | REFERENCE | | | | | | LAB | | | | | | [facility] | | + + + + + + | RDW | 13.9 | 10.5 - 15.0 | REFERENCE | | | | | | LAB | | | | | | [facility] | | + + + + + + | MCH | 32 | 27 - 33 | REFERENCE | | | | | | LAB | | | | | | [facility] | | + + + + + + | MCHC | 34 | 30 - 36 | REFERENCE | | | | | | LAB | | | | | | [facility] | | + + + + + + | Platelet | 343 | 140 - 440 | REFERENCE | | | Count | | | LAB | | | | | | [facility] | | + + + + + + | % | 58.8 | 39 - 80 | REFERENCE | | | Neutrophils | | | LAB | | | | | | [facility] | | + + + + + + | % | 29.4 | 24 - 44 | REFERENCE | | | Lymphocytes | | | LAB | | | | | | [facility] | | + + + + + + | Monocyte % | 8.7 | 0 - 12 | REFERENCE | | | | | | LAB | | | | | | [facility] | | + + + + + + | Eosinophils | 2.3 | 0 - 6 | REFERENCE | | | % | | | LAB | | | | | | [facility] | | + + + + + + | Basophils % | 0.8Comment: | 0 - 2 | REFERENCE | | | | Instructions Received: | | LAB | | | | Copy To: ANA CRISTINA Jaeger, | | [facility] | | | | SCAR[place]TT | | | | | |Copy To: SCARLETT DE LA PAZ M.D. | | | | | | | | | | + + + + + + + + | Specimen | + + | | + + + + + | Narrative | Performed At | + + + | Testing Performed at: [facility] CLIA: [id number] - [address] | REFERENCE LAB | | [place] [address] | [facility] | + + + + + + + + | Performing | Address | City/State/Zipcode | Phone Number | | Organization | | | | + + + + + | REFERENCE LAB | [address] | [place] | [phone] | | [facility] | | [address] | | + + + + + | REFERENCE LAB | [address] | [place] | [phone] | | [facility] | | [address] | | + + + + + documented in this encounter Visit Diagnoses + + | Diagnosis | + + | Mixed hyperlipidemia - Primary | + + | Low vitamin D level | + + | Impaired fasting glucose | + + | Nocturia | + + documented in this encounter
--- OUTSIDE RECORDS SUMMARY | ~2020-01-05 | XMS | Encounter Summary ---
Demographics + + + | Address | [address] | | | [place] [address] | + + + | Home Phone | | + + + | Preferred Language | Unknown | + + + | Marital Status | | + + + | Lutheran Affiliation | Unknown | + + + [...] Team Providers + +------+ + | Care Jackscrew Man Name | Role | Phone | + [...] Description | +--------+--------+ + + + | 01/14/ | Refill | [facility] | Adonis Hamm | Medication Refill | | 2017 | | [facility] | E, DO [address] | | | | | [facility] [address] | [place], [place] | | | | | [address] [place], | [address] | | | | | [place] [address] | [phone] | | | | | [phone] | | | +--------+--------+ + + + [...] Encounter - Rosanna Hubbard CC CMA - 01/14/2018 1:22 PM PDTLAST OFFICE VISIT , ESTABLISHING 02/03/2018. QIANA [...]
--- OUTSIDE RECORDS SUMMARY | ~2020-01-05 | XMS | Encounter Summary ---
Demographics + + + | Address | [address] | | | [place] [address] | + + + | Home Phone | | + + + | Preferred Language | Unknown | + + + | Marital Status | | + + + | Catholic Affiliation | Unknown | + + + | Race | White | + + + | Ethnic Group | Not or | + + + Author + + + | Author | [facility] | | | and [place] | + + + | Organization | [facility] | | | and [...] Team Providers + +------+ + | Care Commissions Specialist Name | Role | Phone | + +------+ + | Adonis Hamm DO | PCP | | + +------+ + Reason for Visit + +--------+ + | Reason | Onset | Comments | | | Date | | + +--------+ + | Appointment | 07/01/ | | | | 2019 | | + +--------+ + Encounter Details +--------+ + + + + | Date | Type | Department | Care Team | Description | +--------+ + + + + | 07/01/ | Telephone | [facility] | Adonis Hamm | Appointment | | 2019 | | [facility] | E, DO [address] | | | | | MED[facility] [address] | [place], [place] | | | | | [address] [place], | [address] | | | | | [place] [address] | [phone] | | | | | [phone] | | | +--------+ + + + [...] Notes Telephone Encounter - David Ghosh - 07/02/2018 8:32 AM PDTPt is scheduled for 07-07-[address] Hamm/Coty signed by David Ghosh at 07/02/2018 8:33 AM PDTTelep adrián Encounter - David Ghosh - 07/01/2018 2:50 PM PDTI called and left a message for pt to call the clinic, pt needs to schedule an apt for fup labs Dr Hamm/robin elephone Encounter - Jo Ann Mejia CC CMA - 07/01/2018 10:10 AM PDTPlease call and scheduled pt to see Dr Hamm re: lab resul ts. Thanks QIANA Hough CMA PS appt reason: High cholesterol Electronically signed by QIANA Aquino CMA at 2018 10:11 AM PDTTelephone Encounter - Jo Ann Mejia CC CMA - 07/01/2018 10:10 AM PDT--- -- Message from Adonis Hamm DO sent at 07/01/2018 7:07 PDT ----- appt to discuss labs when appt available.Electronically signed by QIANA Aquino CMA a t 07/01/2018 10:10 AM PDTdocumented in this encounter Plan of Treatment Not on filedocumented as of this encounter Visit Diagnoses Not on filedocumented in this encounter"
--- OUTSIDE RECORDS SUMMARY | ~2020-01-05 | XMS | Encounter Summary ---
Demographics + + + | Address | [address] | | | [place] [address] | + + + | Home Phone | | + + + | Preferred Language | Unknown | + + + | Marital Status | | + + + | Restorationist Affiliation | Unknown | + + + | Race | White | + + + | Ethnic Group | Not or | + + + Author + + + | Author | [facility] | | | and [place] | + + + | Organization | [facility] | | | [...] Team Providers + +------+ + | Care Dairy Farm Operator Name | Role | Phone | + +------+ + | Adonis Hamm DO | PCP | | + +------+ + Reason for Visit + +--------+ + | Reason | Onset | Comments | | | Date | | + +--------+ + | Medication Related | 07/10/ | Med questions/hopes to be called soon as goes to work in | | | 2019 | 1 hr | + +--------+ + Encounter Details +--------+ + + + + | Date | Type | Department | Care Team | Description | +--------+ + + + + | 07/10/ | Telephone | [facility] | Adonis Hamm | Medication Related | | 2019 | | [facility] | E, DO [address] | (Med questions/hopes | | | | MED[facility] [address] | [place] | to be called soon | | | | [address] [place] [place], | [address] | as goes to work in 1 | | | | [place] [address] | [phone] | hr) | | | | [phone] | | | +--------+ + + + [...] Encounter - Rosanna Hubbard CC CMA - 07/14/2018 1:48 PM PDTPatient made aware to take 4,000mg OTC fish oil. QIANA Singh CMA elephone Jo Ann Steve CC CMA - 07/14/2018 11:30 AM PDTBusy signal twice at 1130. QIANA Hough CMA elephone Meghan Wick - 07/14/2018 11:26 AM PDTPatient returning your call Please call back Clarisa Narayanan elephone Encounter - Sabiha Howell CC CMA - 07/11/2018 3:51 PM PDTLeft message for patient to call back t o go over pt's fish oil. Will notify pt to take 4,000mg-2pills, twice per day. QIANA Grant CMA elephone Susanneo Sabiha Carpenter CC CMA - 07/11/2018 2:13 PM PDTAttempted to call pt, but did no t go to . QIANA Grant CMA elephone David Molina - 07/11/2018 1:54 PM PDTPt returned your call, please call /Virginialectronically signed by David Ghosh at 07/11/2018 1:54 PM PDTTelephone Encoun Jo Ann Elizabeth CC CMA - 07/11/2018 10:02 AM PDTLeft message requesting return call. QIANA Hough CMA elephone Encoun Adonis Schumacher DO - 07/11/2018 7:29 AM PDTYou are correct. And yes I do want her to do so as charted. Thank you. elephone Encounter - Rosanna Hubbard CC CMA - 07/10/2018 5:15 PM PDTSo essent ially if patient does not take Lovaza, patient would have to take 12,000mg DAILY correct? I nsurance will not cover this drug even with PA. Do you want patient to Take OTC 4,000mg as chart in 07/07/2018 note? QIANA Singh CMA elephone Adonis Lees DO - 07/10/2018 4:57 PM PDTI'm sure the pharmacist knows patient ne eds to take at least 12 OTC fish oil tabs daily to come close to the equivalency of this med . If patient is ok with this so am I. I did discuss this with the patient. Electronically si gned by Adonis Hamm DO at 07/10/2018 4:58 PM PDTTelephone Encounter - Vivienne Gallegos - 07/10/2018 4:04 PM PDTPharmacist states Rx for omega 3 is $136.00 and wanted to know if pt can take over the counter omega 3 due to the difference in cost [facility] in [place] Thanks VIVIENNE elephone Carl Pagan RN - 07/10/2018 2:54 PM PDTPatient informed of order for Phenterm ine sent to [facility] in [place].Electronically signed by Carl Fink RN at 019 2:56 PM PDTTelephone Encounter - Kasie Aguirre - 07/10/2018 8:43 AM PDTPatient call ed to say Rx for [place] 3 is not covered by insurance and cost $ 45.00 for a 30 day supply so didn't fill. Patient has questions about a couple other medications as well but states she will explain on return call. Patient is hoping she can get called soon as goes to work in an hour. Kasie Aguirre documented in this encou nter Plan of Treatment Not on filedocumented as of this encounter Visit Diagnoses Not on filedocumented in this encounter"
--- OUTSIDE RECORDS SUMMARY | ~2020-01-05 | XMS | Encounter Summary ---
Demographics + + + | Address | [address] | | | [place] [address] | + + + | Home Phone | | + + + | Preferred Language | Unknown | + + + | Marital Status | | + + + | Buddhism Affiliation | Unknown | + + + | Race | White | + + + | Ethnic Group | Not or | + + + Author + + + | Author | [facility] | | | and [place] | + + + | Organization | [facility] | | | [...] Team Providers + +------+ + | Care Cosmetic Sales Assistant Name | Role | Phone | + +------+ + | Adonis Hamm DO | PCP | | + +------+ + Reason for Visit +--------+--------+ + | Reason | Onset | Comments | | | Date | | +--------+--------+ + | Other | 06/02/ | Pt request call back today re: not feeling well | | | 2020 | | +--------+--------+ + Encounter Details +--------+ + + + + | Date | Type | Department | Care Team | Description | +--------+ + + + + | 06/02/ | Telephone | [facility] | Adonis Hamm | Other (Pt request | | 2020 | | [facility] | E, DO [address] | call back today re: | | | | MED[facility] [address] | [place], [place] | not feeling well) | | | | [address], | [address] | | | | | [place] [address] | [phone] | | | | | [phone] | | | +--------+ + + + [...] Notes Telephone Encounter - Kasie Aguirre - 06/11/2019 1:31 PM PDTI was trying to close my en counters however this one has a note on it stating: This encounter contains orders that do not have an associated diagnosis. Please associate these orders before closing this encounter. Kasie Aguirre elephone Encounter - Jo Ann Leija CC CMA - 06/03/2019 3:15 PM PDTLabs pended, please sign. Patient informed TTelephone Encounter - Adonis Hamm DO - 06/03/2019 2:56 PM PDTPlease order nonfasti ng cbc ferritin B12 No need to repeat vitD Most likely IPL PDT TTelephone Encounter - Jo Ann Mejia CC CMA - 06/03/2019 1:40 PM PDTI spoke with saira gaona. She saw [facility] on 04/21/18 re: fatigue. She states she has been taking vit d and iron, but i t is not helping. She continues to get headaches and feels very tired. She says she feels li ke she is "in a fog". Patient was pretty nonspecific so I offered an appt, but because of the COVID19 outbreak rossy pelaez would like to avoid an OV for now. She requests that we order more labwork to verify that her vit d and iron is working. Order to go to [facility] in [place]. Please advised. QIANA Hough CMA elephone Encoun ter - Kasie Aguirre Luis - 06/03/2019 1:28 PM PDTPatient is requesting a call back from Dr. Tyrel vanessa's nurse today as she's not been feeling well and will explain in detail on return nichole l. Please call back on her cell # [phone]. Kasie Aguirre documented in this encou nter Plan of Treatment + +------+--------+ + + | Name | Type | Priori | Associated Diagnoses | Order Schedule | | | | ty | | | + +------+--------+ + + | CBC with | Lab | Routin | Fatigue, | 1 Occurrences | | Differential | | e | unspecified type | starting 06/03/2019 | | | | | | until 06/02/2020 | + +------+--------+ + + | Ferritin | Lab | Routin | Fatigue, | 1 Occurrences | | | | e | unspecified type | starting 06/03/2019 | | | | | | until 06/02/2020 | + +------+--------+ + + | Vitamin B-12 | Lab | Routin | Fatigue, | 1 Occurrences | | | | e | unspecified type | starting 06/03/2019 | | | | | | until 06/02/2020 | + +------+--------+ + + documented as of this encounter Procedures + +--------+ + + + | Procedure Name | Priori | Date/Time | Associated Diagnosis | Comments | | | ty | | | | + +--------+ + + + | VITAMIN B-12 | Routin | 06/08/2019 | Fatigue, | Results for this | | | e | 3:35 PM | unspecified type | procedure are in the | | | | PDT | | results section. | + +--------+ + + + | CBC WITH | Routin | 06/08/2019 | Fatigue, | Results for this | | DIFFERENTIAL | e | 3:35 PM | unspecified type | procedure are in the | | | | PDT | | results section. | + +--------+ + + + | FERRITIN | Routin | 06/08/2019 | Fatigue, | Results for this | | | e | 3:35 PM | unspecified type | procedure are in the | | | | PDT | | results section. | + +--------+ + + + documented in this encounter Results Vitamin B-12 (06/08/2019 3:35 PM PDT) + + + + + + | Component | Value | Ref Range | Performed | Pathologist | | | | | At | Signature | + + + + + + | Vitamin B12 | 314.0Comment: Please | 232 - 1249 | REFERENCE | | | | note reference range | | LAB | | | | change as of 12/24/2016. | | [facility] - | | | | Biotin in specimens | | [facility] | | | | taken from patients on | | | | | | high-dose biotin therapy | | | | | | or supplements may | | | | | | intefere with this test | | | | | | and cause inaccurate | | | | | | test results. It is | | | | [...] biotin | | | | | | administration. | | | | + + + + + + + + | Specimen | + + | | + + + + + | Narrative | Performed At | + + + | Testing Performed at: [facility] CLIA: [id number] - 8151 | REFERENCE LAB | | [place] [address] | [facility] | | | [place] | + + + + + + + + | Performing | Address | City/State/Zipcode | Phone Number | | Organization | | | | + + + + + | REFERENCE LAB | [address] | [place] | [phone] | | [facility] | | [address] | | + + + + + Ferritin (06/08/2019 3:35 PM PDT) + + + + + + | Component | Value | Ref Range | Performed | Pathologist | | | | | At | Signature | + + + + + + | Ferritin | 307.8 (H)Comment: | 13 - 150 | REFERENCE | | | | Biotin in specimens | | LAB | | | | taken from patients on | | [facility] - | | | | high-dose biotin therapy | | [facility] | | | | or supplements may | | | | | | intefere with this test | | | | | | and cause inaccurate | | | | | | test results. It is | | | | [...] biotin | | | | | | administration. | | | | + + + + + + + + | Specimen | + + | | + + + + + | Narrative | Performed At | + + + | Testing Performed at: [facility] CLIA: [id number] - [address] | REFERENCE LAB | | [place] [address] | [facility] | | | [place] | + + + + + + + + | Performing | Address | City/State/Zipcode | Phone Number | | Organization | | | | + + + + + | REFERENCE LAB | [address] | [place] | [phone] | | [place] [facility] [place] | | [address] | | + + + + + CBC with Differential (06/08/2019 3:35 PM PDT) + + + + + + | Component | Value | Ref Range | Performed | Pathologist | | | | | At | Signature | + + + + + + | WBC | 8.8 | 4.5 - 11.0 | REFERENCE | | | | | | LAB | | | | | | [facility] | | | | | | [facility] | | + + + + + + | Red Blood | 3.77 (L) | 3.8 - 5.1 | REFERENCE | | | Cells | | | LAB | | | | | | [facility] | | | | | | [facility] | | + + + + + + | Hemoglobin | 11.7 (L) | 12.0 - 16.0 | REFERENCE | | | | | | LAB | | | | | | [facility] | | | | | | [facility] | | + + + + + + | Hct | 35.5 | 35 - 45 | REFERENCE | | | | | | LAB | | | | | | [facility] | | | | | | [facility] | | + + + + + + | MCV | 94.2 | 81 - 99 | REFERENCE | | | | | | LAB | | | | | | [facility] | | | | | | [facility] | | + + + + + + | RDW | 13.7 | 10.5 - 15.0 | REFERENCE | | | | | | LAB | | | | | | [facility] | | | | | | [facility] | | + + + + + + | MCH | 31 | 27 - 33 | REFERENCE | | | | | | LAB | | | | | | [facility] | | | | | | [facility] | | + + + + + + | MCHC | 33 | 30 - 36 | REFERENCE | | | | | | LAB | | | | | | [facility] | | | | | | [facility] | | + + + + + + | Platelet | 314 | 140 - 440 | REFERENCE | | | Count | | | LAB | | | | | | [facility] | | | | | | [facility] | | + + + + + + | % | 67.5 | 39 - 80 | REFERENCE | | | Neutrophils | | | LAB | | | | | | [facility] | | | | | | [facility] | | + + + + + + | % | 25.7 | 24 - 44 | REFERENCE | | | Lymphocytes | | | LAB | | | | | | [facility] - | | | | | | [facility] | | + + + + + + | Monocyte % | 3.2 | 0 - 12 | REFERENCE | | | | | | LAB | | | | | | [facility] - | | | | | | [facility] | | + + + + + + | Eosinophils | 3.1 | 0 - 6 | REFERENCE | | | % | | | LAB | | | | | | [facility] | | | | | | [facility] | | + + + + + + | Basophils % | 0.5 | 0 - 2 | REFERENCE | | | | | | LAB | | | | | | [facility] - | | | | | | [facility] | | + + + + + + + + | Specimen | + + | | + + + + + | Narrative | Performed At | + + + | Testing Performed at: [facility] CLIA: [id number] - [address] | REFERENCE LAB | | [place] [address] | [facility] - | | | [place] | + + + + + + + + | Performing | Address | City/State/Zipcode | Phone Number | | Organization | | | | + + + + + | REFERENCE LAB | [address] [facility] [facility] [address] [facility] | [place] | [phone] | | [facility] | | [address] | | + + + + + documented in this encounter Visit Diagnoses + + | Diagnosis | + + | Fatigue, unspecified type - Primary | + + documented in this encounter
--- OUTSIDE RECORDS SUMMARY | ~2020-01-05 | XMS | Encounter Summary ---
Demographics + + + | Address | [address] | | | [place] [address] | + + + | Home Phone | | + + + | Preferred Language | Unknown | + + + | Marital Status | | + + + | Faith Affiliation | Unknown | + + + | Race | White | + + + | Ethnic Group | Not or | + + + Author + + + | Author | [facility] | | | and [place] | + + + | Organization | [facility] | | | [...] Team Providers + +------+ + | Care Production Designer Name | Role | Phone | + +------+ + | Adonis Hamm DO | PCP | | + +------+ + Reason for Visit + +--------+ + | Reason | Onset | Comments | | | Date | | + +--------+ + | Lab Results | 06/08/ | | | | 2020 | | + +--------+ + Encounter Details +--------+ + + + + | Date | Type | Department | Care Team | Description | +--------+ + + + + | 06/08/ | Telephone | [facility] | Adonis Hamm | Lab Results | | 2020 | | [facility] | E, DO [address] | | | | | [facility] [address] | [place], [place] | | | | | [address] [place], | [address] | | | | | [place] [address] | [phone] | | | | | [phone] | | | +--------+ + + + [...] - Jo Ann Mejia CC CMA - 06/09/2019 9:22 AM PDTUA ordered and sent to [facility] patient letting her know. QIANA Hough CMA' 9: 23 AM PDTTelephone Encounter - Adonis Hamm DO - 06/09/2019 9:09 AM PDTOKElectronica llloyd signed by Adonis Hamm DO at 06/09/2019 9:09 AM PDTTelephone Encounter - Jo Ann Mejia CC RECONCILER - 06/09/2019 8:39 AM PDTPatient informed. Pt verbalized understanding. Pt states she "has an infection somewhere". She cannot be specific about sxs, but states sh benigno has not felt well in months. Patient would like a UA to check for a UTI. Pt's family does not get sxs with UTI's and pat marialuisa states Dr. Hamm knows this. Please advise. QIANA Hough CMA elephone Encoun ter - Jo Ann Mejia CC CMA - 06/09/2019 8:39 AM PDT----- Message from Adonis Hamm DO sent at 06/09/2019 7:13 AM PDT ----- Labs look OK docu mented in this encounter Plan of Treatment + +------+--------+ + + | Name | Type | Priori | Associated Diagnoses | Order Schedule | | | | ty | | | + +------+--------+ + + | Urinalysis with | Lab | Routin | Fatigue, | Expected: | | Microscopic with | | e | unspecified type | 06/09/2019, Expires: | | Culture if Indicated | | | Frequent UTI | 07/10/2019 | + +------+--------+ + + documented as of this encounter Procedures + +--------+ + + + | Procedure Name | Priori | Date/Time | Associated Diagnosis | Comments | | | ty | | | | + +--------+ + + + | URINALYSIS WITH | Routin | 06/10/2019 | | Results for this | | MICROSCOPIC WITH | e | 4:20 PM | | procedure are in the | | CULTURE IF INDICATED | | PDT | | results section. | + +--------+ + + + documented in this encounter Results Urinalysis with Microscopic with Culture if Indicated (06/10/2019 4:20 PM PDT) + + + + + [...] + + + + | Clarity, | CLEAR | | REFERENCE | | | Urine | | | LAB | | | | | | [facility] | | | | | | [facility] | | + + + + + + | Specific | 1.012 | 1.005 - 1.030 | REFERENCE | | | [place] | | | LAB | | | | | | [facility] | | | | | | [facility] | | + + + + + + | pH, Urine | 6 | 5 - 9 | REFERENCE | | | | | [...] + + + | Nitrite, UA | NEGATIVE | negative | REFERENCE [...] + + + + | Leukocyte | NEGATIVE | negative | REFERENCE | | | esterase, | | | LAB | | | UA | | | [facility] - | | [...] + + + | WBC, UA | 2 | 0 - 4 | REFERENCE | | | | | | LAB | | | | | | [facility] - | | | | | | [place] | | + + + + + + | RBC, UA | 0 | 0 - 4 | REFERENCE | | | | | | LAB | | | | | | [facility] | | | | | | [facility] | | + + + + + + | Squamous | NEGATIVE | 0-1+ Squamous | REFERENCE | | | epithelial, | | | LAB | | | UA | | | [facility] | | | | | | [facility] | | + + + + + + | CRYSTAL UA | NEGATIVE | 0-1+ | REFERENCE | | | | | | LAB | | | | | | [facility] - | | | | | | [facility] | | + + + + + + | Bacteria, | NEGATIVE | negative | REFERENCE | [...] Testing Performed at: [facility] CLIA: [id number] - [address] | REFERENCE LAB | | [place] [address] | [facility] | | | [place] | + + + + + + + + | Performing | Address | City/State/Zipcode | Phone Number | | Organization | | | | + + + + + | REFERENCE LAB | [address] | [place] | [phone] | | [facility] | | [address] | | + + + + + documented in this encounter Visit Diagnoses + + | Diagnosis | + + | Fatigue, unspecified type - Primary | + + | Frequent UTI Urinary tract infection, site not specified | + + documented in this encounter
--- OUTSIDE RECORDS SUMMARY | ~2020-01-05 | XMS | Clinical Summary ---
Demographics + + + | Address | [address] | | | [place] [address] | + + + | Home Phone [...] + | Author | [facility] | | | and [place] | + + + | Organization | [facility] | | | and [...] Team Providers + +------+ + | Care Dental Tech Name | Role | Phone | + +------+ + | Adonis Hamm DO | PCP | | + +------+ + Allergies + + + + + + | Active Allergy | Reactions | Severity | Noted | Comments | | | | | Date | | + + + + + + | Hydrocodone-Acetamin | Nausea And Vomiting | | 02/01/20 | | | ophen | | | 18 | | + + + + + + Medications + + + +---------+------+------+-------+ | Medication | Sig | Dispensed | Refills | Star | End | Statu | | | | | | t | Date | s | | | | | | Date | | | + + + +---------+------+------+-------+ | ibuprofen ([facility] | Take 200 mg by mouth | | 0 | | | Activ | | IBUPROFEN) 200 mg | every 6 hours as | | | | | e | | tablet | needed for Pain. | | | | | | + + + +---------+------+------+-------+ | Misc Natural | Take by mouth as | | 0 | | | Activ | | Products | needed. | | | | | e | | (GLUCOSAMINE CHOND | | | | | | | | COMPLEX/MSM) TABS | | | | | | | + + + +---------+------+------+-------+ | omega-3 acid ethyl | Take 4 capsules by | 120 | 11 | 04/2 | | Activ | | esters (LOVAZA) 1 g | mouth Daily. | capsule | | 2/20 | | e | | capsuleIndications: | | | | 19 | | | | Mixed | | | | | | | | hyperlipidemia | | | | | | | + + + +---------+------+------+-------+ | alendronate | TK 1 T PO QD. REMAIN | 90 | 3 | 12/1 | | Activ | | (FOSAMAX) 10 mg | UPRIGHT FOR 30 | tablet | | 3/20 | | e | | tablet | MINUTES. DO NOT TAKE | | | 19 | | | | | WITH FOOD FOR 30 | | | | | | | | MINUTES | | | | | | + + + +---------+------+------+-------+ | buPROPion | TAKE 1 TABLET BY | 90 | 3 | 12/1 | | Activ | | (WELLBUTRIN XL) 300 | MOUTH EVERY DAY | tablet | | 3/20 | | e | | mg 24 hr tablet | | | | 19 | | | + + + +---------+------+------+-------+ | calcium, as | Take 1 tablet by | 180 | 3 | 12/1 | | Activ | | carbonate, | mouth 2 times daily | tablet | | 3/20 | | e | | (CALTRATE) 600 mg | (with breakfast & | | | 19 | | | | tablet | dinner). | | | | | | + + + +---------+------+------+-------+ | Cetirizine HCl | Take 1 capsule by | 90 | 3 | 12/1 | | Activ | | (ZYRTEC ALLERGY) 10 | mouth Daily. | capsule | | 3/20 | | e | | MG liqui-gel | | | | 19 | | | + + + +---------+------+------+-------+ | | Apply topically 2 | 45 g | 3 | 12/1 | | Activ | | clotrimazole-betamet | times daily. | | | 3/20 | | e | | hasone (LOTRISONE) | | | | 19 | | | | cream | | | | | | | + + + +---------+------+------+-------+ | folic acid | Take 1 tablet by | 90 | 3 | 12/1 | | Activ | | (FOLVITE) 400 MCG | mouth Daily. | tablet | | 3/20 | | e | | tablet | | | | 19 | | | + + + +---------+------+------+-------+ | | TAKE 1 TABLET BY | 90 | 3 | 12/1 | | Activ | | lisinopril-hydrochlo | MOUTH EVERY DAY | tablet | | 3/20 | | e | | rothiazide | | | | 19 | | | | (PRINZIDE,ZESTORETIC | | | | | | | | ) 20-12.5 MG per | | | | | | | | tablet | | | | | | | + + + +---------+------+------+-------+ | methotrexate 2.5 | Take 3 tablets by | 36 | 3 | 12/1 | | Activ | | mg | mouth Once a week. | tablet | | 3/20 | | e | | tabletIndications: | Indications: Other | | | 19 | | | | OTHER NON-ONCOLOGY | Non-Oncology | | | | | | + + + +---------+------+------+-------+ | raNITIdine | Take 1 tablet by | 180 | 3 | 12/1 | | Activ | | (ZANTAC) 150 mg | mouth 2 times daily. | tablet | | 3/20 | | e | | tablet | | | | 19 | | | + + + +---------+------+------+-------+ | rosuvastatin | Take 1 tablet by | 90 | 3 | 12/1 | | Activ | | (CRESTOR) 20 mg | mouth nightly. | tablet | | 3/20 | | e | | tabletIndications: | | | | 19 | | | | Mixed hyperlipidemia | | | | | | | + + + +---------+------+------+-------+ | diclofenac | instill 1 drop into | | 0 | 12/1 | | Activ | | (VOLTAREN) 0.1 % | both eyes three | | | 8/20 | | e | | ophthalmic solution | times a day | | | 19 | | | + + + +---------+------+------+-------+ | montelukast | Take 1 tablet by | 30 | 0 | 02/0 | | Activ | | (SINGULAIR) 10 mg | mouth Daily. | tablet | | 4/20 | | e | | tabletIndications: | | | | 20 | | | | Sinus pain, Seasonal | | | | | | | | allergies | | | | | | | + + + +---------+------+------+-------+ | cholecalciferol | Take 1 capsule by | 8 each | 0 | 02/0 | | Activ | | (VITAMIN D-3) 1.25 | mouth Once a week. | | | 5/20 | | e | | mg (50,000 units) | | | | 20 | | | | capsuleIndications: | | | | | | | | Vitamin D | | | | | | | | insufficiency | | | | | | | + + + +---------+------+------+-------+ | famotidine | Take 1 tablet by | 180 | 3 | 04/2 | | Activ | | (PEPCID) 20 mg | mouth 2 times daily. | tablet | | 1/20 | | e | | tablet | Instead of Zantac. | | | 20 | | | + + + +---------+------+------+-------+ | azithromycin | Take 2 tablets by | 6 | 0 | 06/1 | | Activ | | (ZITHROMAX) 250 mg | mouth on day 1, and | tablet | | 10/04 | | e | | tabletIndications: | 1 tablet by mouth | | | 20 | | | | Recurrent productive | every day | | | | | | | cough, Acute | | | | | | | | frontal sinusitis, | | | | | | | | recurrence not | | | | | | | | specified | | | | | | | + + + +---------+------+------+-------+ | | Take one tablet by | 14 | 0 | 08/16 | | Activ | | amoxicillin-clavulan | mouth twice daily | tablet | | 10/04 | | e | | ate (AUGMENTIN) | for 7 days. | | | 20 | | | | 875-125 mg per | | | | | | | | tabletIndications: | | | | | | | | Recurrent productive | | | | | | | | cough, Acute | | | | | | | | frontal sinusitis, | | | | | | | | recurrence not | | | | | | | | specified | | | | | | | + + + +---------+------+------+-------+ | methylPREDNISolone | Follow package | 21 | 0 | 08/16 | | Activ | | (MEDROL DOSEPAK) 4 | directions. | tablet | | 10/04 | | e | | mg | | | | 20 | | | | tabletIndications: | | | | | | | | Recurrent productive | | | | | | | | cough, Acute | | | | | | | | frontal sinusitis, | | | | | | | | recurrence not | | | | | | | | specified | | | | | | | + + + +---------+------+------+-------+ | pseudoePHEDrine | Take 1 tablet by | 40 | 0 | / | | Activ | | (SUDAFED) 30 mg | mouth 3 times daily | tablet | | 12/05 | | e | | tablet | as needed for | | | 20 | | | | | Congestion. | | | | | | + + + +---------+------+------+-------+ Active Problems + + + | Problem | Noted Date | + + + | Overweight (BMI 25.0-29.9) | 07/07/2018 | + + + | Hyperglycemia | 04/14/2018 | + + + | Vitamin D insufficiency | 02/03/2018 | + + + | Impaired fasting glucose | 02/03/2018 | + + + | Long-term use of high-risk medication | 01/03/2017 | + + + | Primary osteoarthritis involving multiple joints | 01/03/2017 | + + + | Anxiety and depression | | + + + | Dermatitis | | + + + | Essential hypertension | | + + + | Mixed hyperlipidemia | | + + + | Insomnia | | + + + | Osteoporosis, post-menopausal | | + + + | Rheumatoid arthritis | | + + + + + | Overview: Overview: | | replaced due to ICD-10 go-live | + + Resolved Problems + + + + | Problem | Noted | Resolved | | | Date | Date | + + + + | Acute non-recurrent maxillary sinusitis | 04/14/19 | | | | 19 | 9 | + + + + Encounters +--------+ + + + + | Date | Type | Specialty | Care Team | Description | +--------+ + + + + | 12/06/ | Telephone | Primary Care | Adonis Hamm | Other (exposed to | | 2020 | | | E, DO | covid 19) | +--------+ + + + + | 10/04/ | Telephone | Primary Care | Adonis Hamm | Imaging; Results | | 2020 | | | E, DO | (Please call patient | | | | | | with CXR results) | +--------+ + + + + from Last 3 Months Immunizations + + + + | Name | Administration Dates | Next Due | + + + + | INFLUENAZ PF | 02/16/2013 | | | TRIVALENT | | | | INTRADERMAL | | | + + + + | INFLUENZA 65 Y OR >, | 12/15/2018, 12/17/2017 | | | TRIVALENT HIGH-DOSE | | | + + + + | INFLUENZA PF | 12/24/2016 | | | QUAD(PED/ADOL/ADULT) | | | | ,PSKT or VIAL | | | + + + + | INFLUENZA TRIV | 02/08/2014, 01/14/2012, 01/01/2011 | | | W/PRES(PED/ADOL/ADUL | | | | T),MULTIDOSE | | | + + + + | PNEUMOCOCCAL | 11/15/2014 | | | CONJUGATE 13-VALENT | | | | (PCV13) | | | + + + + | PNEUMOCOCCAL | 10/29/2016 | | | POLYSACCHARIDE | | | | 23-VALENT (PPSV23) | | | + + + + | TDAP, UNSPECIFIED | 11/16/2013 | | | FORMULATION | | | + + + + | ZOSTER, 1 DOSE | 01/07/2017 | | | (ZOSTAVAX) | | | + + + + Family History + + +------+ + | Medical History | Relation | Name | Comments | + + +------+ + | Diabetes | Father | | Borderline | + + +------+ + + +------+ + + | Relation | Name | Status | Comments | + +------+ + + | Father | | | | + +------+ + + Social History + +-------+ +--------+------+ [...] on file | | + + + Last Filed Vital Signs + + + + + | Vital Sign | Reading | Time Taken | Comments | + + + + + | Blood Pressure | 138/80 | 04/21/2019 1:45 PM | | | | | PST [...] + + + + | Weight | 69.9 kg (154 lb) | 04/21/2019 1:45 PM | | | | | PST | | + + + + + | Height | 157.5 cm (5' 2") | 04/21/2019 1:45 PM | | | | | PST | | + + + + + | Body Mass Index | 28.17 | 04/21/2019 1:45 PM | | | | | PST | | + + + + + Plan of Treatment + + + + + | Health Maintenance | Due Date | Last | Comments | | | | Done | | + + + + + | Hepatitis C | | | | | Screening | 1 | | | + + + + + | Medication | | | | | Management | 1 | | | + + + + + | Vaccine: Zoster (2 | | 01/08/20 | | | of 3) | 7 | 17 | | + + + + + | Adult Annual | | | | | Wellness Visit | 8 | | | + + + + + | Breast Cancer | | 11/28/19 | | | Screening | 9 | 17 | | + + + + + | Med Mgmt: ALT | | 04/21/19 | | | | 0 | 20, | | | | | 07/01/19 | | | | | 19, | | | | | 02/18/20 | | | | | 18 | | + + + + + | Med Mgmt: AST | | 04/21/19 | | | | 0 | 20, | | | | | 07/01/19 | | | | | 19, | | | | | 02/18/20 | | | | | 18 | | + + + + + | Med Mgmt: Cr | | 04/21/19 | | | | 0 | 20, | | | | | 07/01/19 | | | | | 19, | | | | | 02/18/20 | | | | | 18, | | | | | Addition | | | | | al | | | | | history | | | | | exists | | + + + + + | Med Mgmt: HCT | | 06/08/19 | | | | 0 | 20, | | | | | 04/21/19 | | | | | 20, | | | | | 02/18/20 | | | | | 18, | | | | | Addition | | | | | al | | | | | history | | | | | exists | | + + + + + | Med Mgmt: HGB | | 06/08/19 | | | | 0 | 20, | | | | | 04/21/19 | | | | | 20, | | | | | 02/18/20 | | | | | 18, | | | | | Addition | | | | | al | | | | | history | | | | | exists | | + + + + + | Med Mgmt: PLT | | 06/08/19 | | | | 0 | 20, | | | | | 04/21/19 | | | | | 20, | | | | | 02/18/20 | | | | | 18, | | | | | Addition | | | | | al | | | | | history | | | | | exists | | + + + + + | Med Mgmt: RBC | | 06/08/19 | | | | 0 | 20, | | | | | 04/21/19 | | | | | 20, | | | | | 02/18/20 | | | | | 18, | | | | | Addition | | | | | al | | | | | history | | | | | exists | | + + + + + | Med Mgmt: WBC | | 06/08/19 | | | | 0 | 20, | | | | | 04/21/19 | | | | | 20, | | | | | 02/18/20 | | | | | 18, | | | | | Addition | | | | | al | | | | | history | | | | | exists | | + + + + + | Vaccine: Influenza | | 12/16/19 | | | (#1) | 0 | 19, | | | | | 12/18/19 | | | | | 18, | | | | | 12/25/19 | | | | | 17, | | | | | Addition | | | | | al | | | | | history | | | | | exists | | + + + + + | Primary Care | | 09/02/19 | | | Outreach (Intense | 0 | 20, | | | Risk) | | 04/21/19 | | | | | 20, | | | | | 12/16/19 | | | | | 19, | | | | | Addition | | | | | al | | | | | history | | | | | exists | | + + + + + | Med Mgmt: BUN | | 04/21/19 | | | | 1 | 20, | | | | | 07/01/19 | | | | | 19, | | | | | 02/18/20 | | | | | 18 | | + + + + + | Med Mgmt: K | | 04/21/19 | | | | 1 | 20, | | | | | 07/01/19 | | | | | 19, | | | | | 02/18/20 | | | | | 18 | | + + + + + | Med Mgmt: Na | | 04/21/19 | | | | 1 | 20, | | | | | 07/01/19 | | | | | 19, | | | | | 02/18/20 | | | | | 18 | | + + + + + | Med Mgmt: Vit D | | 04/21/19 | | | | 1 | 20, | | | | | 02/18/20 | | | | | 18 | | + + + + + | Med Mgmt: eGFR | | 04/21/19 | | | | 1 | 20, | | | | | 07/01/19 | | | | | 19, | | | | | 02/18/20 | | | | | 18 | | + + + + + | Vaccine: | | 11/17/19 | | | Dtap/Tdap/Td (2 - | 4 | 14 | | | Td) | | | | + + + + + | Colorectal Cancer | | 01/23/20 | | | Screening | 7 | 17, | | | (Colonoscopy) | | 01/23/20 | | | | | 17 | | + + + + + | Vaccine: | Completed | 10/30/19 | | | Pneumococcal 65+ | | 17, | | | | | 11/16/19 | | | | | 15 | | + + + + + Procedures + +--------+ + + + | Procedure Name | Priori | Date/Time | Associated Diagnosis | Comments | | | ty | | | | + +--------+ + + + | IMAGING REPORT - | | 10/09/2019 | | Results for this | | EXTERNAL SCAN | | 12:00 AM | | procedure are in the | | | | PDT | | results section. | + +--------+ + + + from Last 3 Months Results IMAGING REPORT - EXTERNAL SCAN (10/09/2019 12:00 AM PDT) + + + | Narrative | Performed At | + + + | Ordered by an | | | unspecified provider. | | + + + from Last 3 Months Insurance + +--------+ +--------+ +---------+--------+ | Payer | Benefi | Subscriber | Effect | Phone | Address | Type | | | t Plan | ID | [place] | | | | | | / | | Dates | | | | | | Group | | | | | | + +--------+ +--------+ +---------+--------+ | MEDICARE | MEDICA | [id number] | 06/17/19 | [phone] | | Medica | | | RE | | 17-Pre | 5 | | re | | | PART A | | sent | | | | | | AND B | | | | | | + +--------+ +--------+ +---------+--------+ | AARP | AARP | [id number] | 03/18/19 | [phone] | | Indemn | | | MDCR | | 18-Pre | 0 | | ity | | | SUPPL | | sent | | | | + +--------+ +--------+ +---------+--------+ + +--------+ +--------+ + + | Guarantor Name | Accoun | Relation to | Date | Phone | Billing Address | | | t Type | Patient | of | | | | | | | | | | + +--------+ +--------+ + + | Una Manuel | Person | Self [birth year] | [address] | | | al/Fam | | 1950 | [phone] | [place] | | | k[place]ha | | | 3 (Home) | [address] | | | | | | [phone] | | | | | | | 4 (Work) | | + +--------+ +--------+ + + Advance Directives + + + + + | Type | Date Recorded | Patient | Explanation | | | | Fleet Dispatch Manager | | + + + + + | Power of | | | | | Percolator Operator | | | | + + + + + | Advance | | | | | Directive | | | | + + + + +
--- OUTSIDE RECORDS SUMMARY | ~2020-01-05 | XMS | Encounter Summary ---
Demographics + + + | Address | [address] | | | [place] [address] | + + + | Home Phone [...] + | Author | [facility] | | | and [place] | + + + | Organization | [facility] | | | and [...] Team Providers + +------+ + | Care Leather Stitcher Name | Role | Phone | + +------+ + | Adonis Hamm DO | PCP | | + +------+ + Reason for Visit +---------+--------+ + | Reason | Onset | Comments | | | Date | | +---------+--------+ + | Results | 02/20/ | | | | 2017 | | +---------+--------+ + Encounter Details +--------+ + + + + | Date | Type | Department | Care Team | Description | +--------+ + + + + | 02/20/ | Telephone | [facility] | Adonis Hamm | Results | | 2018 | | [facility] | E, DO [address] | | | | | [facility] [address] | [place], [place] | | | | [address] [place], | [address] | | | | | [place] [address] | [phone] | | | | | [phone] | | | +--------+ + + + [...] Encounter - Rosanna Hubbard CC CMA - 02/20/2018 4:12 PM PSTPatient informed as tal bradford, please sign order. QIANA Singh CMA elephone Rosanna Garcia CC CMA - 02/20/2018 4:10 PM PST----- Message from Adonis Hamm DO sent at 02/20/2018 15:46 PST ----- UTI with e.coli KEFLEX 500 mg po tid for 7 days documented in this encounter Plan of Treatment Not on filedocumented as of this encounter Visit Diagnoses Not on filedocumented in this encounter"
--- OUTSIDE RECORDS SUMMARY | ~2020-01-05 | XMS | Encounter Summary ---
Demographics + + + | Address | [address] | | | [place] [address] | + + + | Home Phone | | + + + | Preferred Language | Unknown | + + + | Marital Status | | + + + | Mormon Affiliation | Unknown | + + + [...] Team Providers + +------+ + | Care Bleach Plant Operator Name | Role | Phone | + +------+ + | Adonis Hamm DO | PCP | | + +------+ + Encounter Details +--------+ + + + + | Date | Type | Department | Care Team | Description | +--------+ + + + + | 09/01/ | Hospital | [facility] | Adonis Hamm | Recurrent productive | | 2020 | Encounter | [facility] | [address] | cough | | | | [address] | [place], [place] | | | | | [place], [place] | [address] | | | | | [address] | [phone] | | | | | [phone] | | | +--------+ + + + [...] + + documented as of this encounter Medications at Time of Discharge + + + +---------+ + + | Medication | Sig | Dispensed | Refills | Start | End Date | | | | | | Date | | + + + +---------+ + + | alendronate | TK 1 T PO QD. REMAIN | 90 | 3 | 12/13/20 | | | (FOSAMAX) 10 mg | UPRIGHT FOR 30 | tablet | | 19 | | | tablet | MINUTES. DO NOT TAKE | | | | | | | WITH FOOD FOR 30 | | | | | | | MINUTES | | | | | + + + +---------+ + + | | Take one tablet by | 14 | 0 | 09/02/19 | | | amoxicillin-clavulan | mouth twice daily | tablet | | 20 | | | ate (AUGMENTIN) | for 7 days. | | | | | | 875-125 mg per [...] specified | | | | | | + + + +---------+ + + | azithromycin | Take 2 tablets by | 6 | 0 | 09/02/19 | | | (ZITHROMAX) 250 mg | mouth on day 1, and | tablet | | 20 | | | tabletIndications: | 1 tablet by mouth | | | | | | Recurrent productive | every day | | | | | | cough, Acute | | | | | | | frontal sinusitis, | | | | | | | recurrence not | | | | | | | specified | | | | | | + + + +---------+ + + | buPROPion | TAKE 1 TABLET BY | 90 | 3 | 02/28/20 | | | (WELLBUTRIN XL) 300 | MOUTH EVERY DAY | tablet | | 19 | | | mg 24 hr tablet | | | | | | + + + +---------+ + + | calcium, as | Take 1 tablet by | 180 | 3 | 02/28/20 | | | carbonate, | mouth 2 times daily | tablet | | 19 | | | (CALTRATE) 600 mg | (with breakfast & | | | | | | tablet | dinner). | | | | | + + + +---------+ + + | Cetirizine HCl | Take 1 capsule by | 90 | 3 | 02/28/20 | | | (ZYRTEC ALLERGY) 10 | mouth Daily. | capsule | | 19 | | | MG liqui-gel | | | | | | + + + +---------+ + + | cholecalciferol | Take 1 capsule by | 8 each | 0 | 04/22/19 | | | (VITAMIN D-3) 1.25 | mouth Once a week. | | | 20 | | | mg (50,000 units) | | | | | | | capsuleIndications: | | | | | | | Vitamin D | | | | | | | insufficiency | | | | | | + + + +---------+ + + | | Apply topically 2 | 45 g | 3 | 02/28/20 | | | clotrimazole-betamet | times daily. | | | 19 | | | hasone (LOTRISONE) | | | | | | | cream | | | | | | + + + +---------+ + + | diclofenac | instill 1 drop into | | 0 | 03/04/20 | | | (VOLTAREN) 0.1 % | both eyes three | | | 19 | | | ophthalmic solution | times a day | | | | | + + + +---------+ + + | famotidine | Take 1 tablet by | 180 | 3 | 07/07/19 | | | (PEPCID) 20 mg | mouth 2 times daily. | tablet | | 20 | | | tablet | Instead of Zantac. | | | | | + + + +---------+ + + | folic acid | Take 1 tablet by | 90 | 3 | 02/28/20 | | | (FOLVITE) 400 MCG | mouth Daily. | tablet | | 19 | | | tablet | | | | | | + + + +---------+ + + | ibuprofen ([facility] | Take 200 mg by mouth | | 0 | | | | IBUPROFEN) 200 mg | every 6 hours as | | | | | | tablet | needed for Pain. | | | | | + + + +---------+ + + | | TAKE 1 TABLET BY | 90 | 3 | 02/28/20 | | | lisinopril-hydrochlo | MOUTH EVERY DAY | tablet | | 19 | | | rothiazide | | | | | | | (PRINZIDE,ZESTORETIC | | | | | | | ) 20-12.5 MG per | | | | | | | tablet | | | | | | + + + +---------+ + + | methotrexate 2.5 | Take 3 tablets by | 36 | 3 | 02/28/20 | | | mg | mouth Once a week. | tablet | | 19 | | | tabletIndications: | Indications: Other | | | | | | OTHER NON-ONCOLOGY | Non-Oncology | | | | | + + + +---------+ + + | methylPREDNISolone | Follow package | 21 | 0 | 09/02/19 | | | (MEDROL DOSEPAK) 4 | directions. | tablet | | 20 | | | mg | | | | | | | tabletIndications: | | | | | | | Recurrent productive | | | | | | | cough, Acute | | | | | | | frontal sinusitis, | | | | | | | recurrence not | | | | | | | specified | | | | | | + + + +---------+ + + | Misc Natural | Take by mouth as | | 0 | | | | Products | needed. | | | | | | (GLUCOSAMINE CHOND | | | | | | | COMPLEX/MSM) TABS | | | | | | + + + +---------+ + + | montelukast | Take 1 tablet by | 30 | 0 | 04/21/19 | | | (SINGULAIR) 10 mg | mouth Daily. | tablet | | 20 | | | tabletIndications: | | | | | | | Sinus pain, Seasonal | | | | | | | allergies | | | | | | + + + +---------+ + + | omega-3 acid ethyl | Take 4 capsules by | 120 | 11 | 07/08/19 | | | esters (LOVAZA) 1 g | mouth Daily. | capsule | | 19 | | | capsuleIndications: | | | | | | | Mixed | | | | | | | hyperlipidemia | | | | | | + + + +---------+ + + | raNITIdine | Take 1 tablet by | 180 | 3 | 02/28/20 | | | (ZANTAC) 150 mg | mouth 2 times daily. | tablet | | 19 | | | tablet | | | | | | + + + +---------+ + + | rosuvastatin | Take 1 tablet by | 90 | 3 | 02/28/20 | | | (CRESTOR) 20 mg | mouth nightly. | tablet | | 19 | | | tabletIndications: | | | | | | | Mixed hyperlipidemia | | | | | | + + + +---------+ + + | pseudoePHEDrine | Take 1 tablet by | 60 | 0 | 04/21/19 | | | (SUDAFED) 60 MG | mouth every 6 hours | tablet | | 20 | 0 | | tabletIndications: | as needed for | | | | | | Sinus pain, Seasonal | Congestion. | | | | | | allergies | | | | | | + + + +---------+ + + documented as of this encounter Plan of Treatment Not on filedocumented as of this encounter Procedures + +--------+ + + + | Procedure Name | Priori | Date/Time | Associated Diagnosis | Comments | | | ty | | | | + +--------+ + + + | XR CHEST PA AND | Routin | 09/02/2019 | Recurrent | Results for this | | LATERAL | e | 10:11 AM | productive cough | procedure are [...] Procedure Note | + + | Miller, Faisal Results In 09/02/2019 12:13 PM PDT EXAMINATION:XR CHEST PA [...] results is | | recommended.Dictated by: Carl Welchectronically Signed by: Carl Craig on | | [...] | | | + +---------+ + + documented in this encounter Visit Diagnoses + + | Diagnosis | + + | Recurrent productive cough Cough | + + documented in this encounter [...]
--- OUTSIDE RECORDS SUMMARY | ~2020-01-05 | XMS | Encounter Summary ---
Demographics + + + | Address | [address] | | | [place] [address] | + + + | Home Phone | | + + + | Preferred Language | Unknown | + + + | Marital Status | | + + + | Confucianist Affiliation | Unknown | + + + [...] Team Providers + +------+ + | Care Watch Hairspring Assembler Name | Role | Phone | + +------+ + | Adonis Hamm DO | PCP | | + +------+ + Encounter Details +--------+ + + + + | Date | Type | Department | Care Team | Description | +--------+ + + + + | 02/17/ | Orders Only | [facility] | Adonis Hamm | Abnormal urine | | 2017 | | [facility] | E, DO [address] | (Primary Dx) | | | | [facility] | [place], [place] | | | | [address] [place], | [address] | | | | | [place] [address] | [phone] | | | | | [phone] | | | +--------+ + + + [...] of this encounter Plan of Treatment + + +--------+ + + | Name | Type | Priori | Associated Diagnoses | Order Schedule | | | | ty | | | + + +--------+ + + | Culture, Urine | Microbiolog | Routin | Abnormal urine | Expected: | | | y | e | | 02/17/2018, Expires: | | | | | | 03/20/2018 | + + +--------+ + + documented as of this encounter Visit Diagnoses + + | Diagnosis | + + | Abnormal urine - Primary Other nonspecific finding on examination of urine | + + documented in this encounter"
--- OUTSIDE RECORDS SUMMARY | ~2020-01-05 | XMS | Encounter Summary ---
Demographics + + + | Address | [address] | | | [place] [address] | + + + | Home Phone | | + + + | Preferred Language | Unknown | + + + | Marital Status | | + + + | Orthodox Affiliation | Unknown | + + + | Race | White | + + + | Ethnic Group | Not or | + + + Author + + + | Author | [facility] | | | and [place] | + + + | Organization | [facility] | | | and [...] Team Providers + +------+ + | Care Hand Method Lasting Machine Operator Name | Role | Phone | + +------+ + | Adonis Hamm DO | PCP | | + +------+ + Reason for Visit +--------+--------+ + | Reason | Onset | Comments | | | Date | | +--------+--------+ + | Cough | 09/28/ | | | | 2020 | | +--------+--------+ + Encounter Details +--------+ + + + + | Date | Type | Department | Care Team | Description | +--------+ + + + + | 09/28/ | Telephone | [facility] | Adonis Hamm | Cough | | 2020 | | [facility] | E, DO [address] | | | | | [facility] [address] | [place], [place] | | | | | [address] [place], | [address] | | | | | [place] [address] | [phone] | | | | | [phone] | | | +--------+ + + + [...] Encounter - Rosanna Hubbard CC CMA - 09/29/2019 4:46 PM PDTOrders faxed.[place] CC CMA elephone Mary Bender - 09/29/2019 4:30 PM PDTJoseley from [facility] in [place] call ed stating they have yet to receive orders for X-ray. Juju is requesting orders to be faxe d to [facility] at [phone]. Thank you. Mary Dick elephone Encounter - Rosanna Hubbard CC CMA - 09/29/2019 2:14 PM PDTOrder pended, please sign. Patient informe d. QIANA Singh CMA elephone EncounAdonis Rueda DO - 09/29/2019 1:48 PM PDTRepeat cxr (PDT or [facility])Electronically si gned by Adonis Hamm DO at 09/29/2019 1:48 PM PDTTelephone Encounter - Rosanna Hubbard CC CMA - 09/29/2019 1:44 PM PDTPlease advise, negative COVID 09/02/2019. It appears base d on chart patient has been symptomatic since 04/2019. QIANA Singh CMA elephone Edith Sahni - 09/29/2019 11:36 AM PDTPt states its been 2 1/2 weeks since she complet ed medications prescribed for pneumonia and states she still has persistent cough and feelin g "unwell". Pt states she is also taking OTC cough Rx with not improvement. Please call pt to advise Clarisa Sharma documented in t his encounter Plan of Treatment + +---------+--------+ + + | Name | Type | Priori | Associated Diagnoses | Order Schedule | | | | ty | | | + +---------+--------+ + + | XR Chest PA and | Imaging | Routin | Recurrent | Expected: | | Lateral | | e | productive cough | 09/29/2019, Expires: | | | | | Pneumonia of right | 09/28/2020 | | | | | lower lobe due to | | | | | | infectious organism | | + +---------+--------+ + + documented as of this encounter Visit Diagnoses + + | Diagnosis | + + | Pneumonia of right lower lobe due to infectious organism - Primary | + + | Recurrent productive cough Cough | + + documented in this encounter
--- OUTSIDE RECORDS SUMMARY | ~2020-01-05 | XMS | Encounter Summary ---
Demographics + + + | Address | [address] | | | [place] [address] | + + + | Home Phone | | + + + | Preferred Language | Unknown | + + + | Marital Status | | + + + | Voodoo Affiliation | Unknown | + + + [...] Team Providers + +------+ + | Care Epic Ambulatory Analysts Name | Role | Phone | + +------+ + | Adonis Hamm DO | PCP | | + +------+ + Reason for Visit + +--------+ + | Reason | Onset | Comments | | | Date | | + +--------+ + | Medication Refill | 02/24/ | | | | 2019 | | + +--------+ + Encounter Details +--------+--------+ + + + | Date | Type | Department | Care Team | Description | +--------+--------+ + + + | 02/24/ | Refill | [facility] | Jo Ann Mejia, | Medication Refill | | 2018 | | [facility] | CC FLOATLIGHT LOADING SUPERVISOR | | | | | [facility] [address] | | | | | | [address] [facility] [place], | | | | | | [place] [address] | | | | | | [phone] | | | +--------+--------+ + + + [...] Telephone Encounter - Jo Ann Mejia CC FLOATLIGHT LOADING SUPERVISOR - 02/24/2019 11:20 AM PST Patient was last seen on Recent Visits 12/15/2018 Seborrheic keratoses [facility] Adonis Hamm, DO Office Visit 08/18/2018 Overweight (BMI 25.0-29.9) [facility] Adonis Hamm, DO Office Visit 07/07/2018 Mixed hyperlipidemia [facility] Adonis Hamm, DO Office Visit QIANA Hough CMA documented in th is encounter Plan of Treatment Not on filedocumented as of this encounter Visit Diagnoses Not on filedocumented in this encounter"
--- OUTSIDE RECORDS SUMMARY | ~2020-01-05 | XMS | Encounter Summary ---
Demographics + + + | Address | [address] | | | [place] [address] | + + + | Home Phone [...] Author + + + | Author | [facility] | | | and [place] | + + + | Organization | [facility] | | | and [...] Team Providers + +------+ + | Care Gold Wheel Blocker And Polisher Name | Role | Phone | + +------+ + | Adonis Hamm DO | PCP | | + +------+ + Reason for Visit + + + | Reason | Comments | + + + | Follow-up | | + + + Encounter Details +--------+---------+ + + + | Date | Type | Department | Care Team | Description | +--------+---------+ + + + | 04/14/ | Office | [facility] | Siriaselenaelo Adonis | Mixed hyperlipidemia | | 2019 | Visit | [facility] | E, DO [address] | (Primary Dx); | | | | [facility] [address] | [place], [place] | Hyperglycemia; | | | | [address] [place], | [address] | Vitamin D | | | | [place] [address] | [phone] | deficiency; Acute | | | | [phone] | | non-recurrent | | | | | | maxillary sinusitis | +--------+---------+ + + + Social History [...] + + + | Blood Pressure | 130/78 | 04/14/2018 10:11 AM | | | | | PST | | + + + + + | Pulse | 78 | 04/14/2018 10:11 AM | | | | | PST | | + + + + + | Temperature | 37.2 C (98.9 F) | 04/14/2018 10:11 AM | | | | | PST | | + + + + + | Respiratory Rate | 18 | 04/14/2018 10:11 AM | | | | | PST | | + + + + + | Oxygen Saturation | 96% | 04/14/2018 10:11 AM | | | | | PST | | + + + + + | Inhaled Oxygen | - | - | | | Concentration | | | | + + + + + | Weight | 69.4 kg (153 lb) | 04/14/2018 10:11 AM | | | | | PST | | + + + + + | Height | - | - | | + + + + + | Body Mass Index | 27.98 | 02/03/2018 1:59 PM | | | | | PST | | + + + + + documented in this encounter Patient Instructions Patient Instructions Noemy Aragon - 04/14/2018 10:30 AM PST-Stop Simvastatin -Start Rosuvastatin 20 mg daily -Go to [facility] in June for repeat CMP -Continue taking Fish Oil -Take Vitamin D 5000 I/Un daily -Take Sudafed 30 mg up to QID PRN -Get rid of Flour and Sugars, limit carbohydrates to 100 grams daily documented in this encounter Progress Notes Adonis Hamm, DO - 04/14/2018 10:30 AM PST Patient ID: Una Manuel is a 67 y.o. year old female Chief Complaint: Chief Complaint Patient presents with Follow-up Assessment Mixed hyperlipidemia (Primary) - Rosuvastatin Calcium; Take 1 tablet by mouth nightly. Dispense: 90 tablet; Refill: 3 - Comprehensive Metabolic Panel; Future; Expected date: 06/16/2018 Hyperglycemia Vitamin D deficiency Acute non-recurrent maxillary sinusitis Other orders - Lipid Panel; Future; Expected date: 06/16/2018 - Pseudoephedrine HCl; Take 1 tablet by mouth every 6 hours as needed for Congestion. Dispense: 40 tablet; Refill: 0 Plan -Stop Simvastatin -Start Rosuvastatin 20 mg daily -Go to [facility] in June for repeat CMP -Continue taking Fish Oil -Take Vitamin D 5000 I/Un daily -Take Sudafed 30 mg up to QID PRN -Get rid of Flour and Sugars, limit carbohydrates to 100 grams daily 30 minute visit with > 50% time spent in counseling regarding hyperglycemia, mixed hyperlip idemia, vitamin d deficiency, maxillary sinusitis, and starting Rosuvastatin and Sudafed and side effects. Subjective: HPI Una presents to the clinic today for a follow up on recent blood work. Reviewed recent blood work with her. She is still taking Simvastatin and fish oil. She is taking Vitamin D OTC. She never had any symptoms of having a UTI. She woke up with a sore throat and ear pain. She is not congested. She used nasal spray. Kita e takes antihistamine at night. She is having a hard time loosing weight. She does have a lot of stress. She uses food as a stress relief. She is trying to stay away from bread and sugar. Current Outpatient Prescriptions Medication Sig Dispense Refill [...] COMPLEX/MSM) TABS Take by mouth as needed. [place]-3 Fatty Acids (OMEGA-3 PO) Take 1,040 mg by mouth Daily. raNITIdine (ZANTAC) 150 mg tablet Take 150 mg by mouth 2 times daily. simvastatin (ZOCOR) 40 mg tablet TAKE 1 TABLET BY MOUTH EVERY DAY 90 tablet 3 No current facility-administered medications for this visit. Patient Active Problem List Diagnosis Anxiety and depression Dermatitis Essential hypertension Mixed hyperlipidemia Insomnia Osteoporosis, post-menopausal Rheumatoid arthritis Long-term use of high-risk medication Primary osteoarthritis involving multiple joints Vitamin D deficiency Impaired fasting glucose Hyperglycemia Family History Problem Relation Age of Onset [...] Systems Constitutional: Negative for fatigue and fever. Unable to loose weight HENT: Positive for ear pain and sore throat. Negative for congestion. Respiratory: Negative for cough, chest tightness, shortness of breath and wheezing. Cardiovascular: Negative for chest pain and palpitations. Gastrointestinal: Negative for abdominal pain, nausea and vomiting. Musculoskeletal: Negative for gait problem and myalgias. Neurological: Negative for dizziness, syncope and headaches. Psychiatric/Behavioral: The patient is not nervous/anxious. Objective: Vitals: BP 130/78 | Pulse 78 | Temp 37.2 C (98.9 F) (Oral) | Resp 18 | Wt 69.4 kg (153 lb) | SpO2 96% | BMI 27.98 kg/m Physical Exam Constitutional: She appears well-developed and well-nourished. HENT: Head: Normocephalic and atraumatic. Right Ear: External ear normal. Left Ear: External ear normal. Nose: Right sinus exhibits maxillary sinus tenderness. Right sinus exhibits no frontal sinu s tenderness. Left sinus exhibits maxillary sinus tenderness. Left sinus exhibits no frontal sinus tenderness. Mouth/Throat: Oropharynx is clear and moist. Eyes: Pupils are equal, round, and reactive to light. EOM are normal. Cardiovascular: Normal rate, regular rhythm and normal heart sounds. Pulmonary/Chest: Effort normal and breath sounds normal. Neurological: She is alert. Psychiatric: She has a normal mood and affect. Entered by Noemy Aragon, acting as scribe for Dr. Noris DO. The documentation recorded by the scribe accurately reflects the service I personally perfo [facility] and the decisions made by me. Dr. Adonis Hamm DO. 04/14/2018 10:58 documented in this encounter Plan of Treatment + +------+--------+ + + | Name | Type | Priori | Associated Diagnoses | Order Schedule | | | | ty | | | + +------+--------+ + + | Comprehensive | Lab | Routin | Mixed | Expected: | | Metabolic Panel | | e | hyperlipidemia | 06/16/2018, Expires: | | | | | | 04/14/2019 | + +------+--------+ + + | Lipid Panel | Lab | Routin | Mixed | Expected: | | | | e | hyperlipidemia | 06/16/2018, Expires: | | | | | | 04/14/2019 | + +------+--------+ + + documented as of this encounter Visit Diagnoses + + | Diagnosis | + + | Mixed hyperlipidemia - Primary | + + | Hyperglycemia Other abnormal glucose | + + | Vitamin D deficiency Unspecified vitamin D deficiency | + + | Acute non-recurrent maxillary sinusitis | + + documented in this encounter"
--- OUTSIDE RECORDS SUMMARY | ~2020-01-05 | XMS | Encounter Summary ---
Demographics + + + | Address | [address] | | | [place] [address] | + + + | Home Phone | | + + + | Preferred Language | Unknown | + + + | Marital Status | | + + + | Lutheran Affiliation | Unknown | + + + | Race | White | + + + | Ethnic Group | Not or | + + + Author + + + | Author | [facility] | | | and [place] | + + + | Organization | [facility] | | | [...] Team Providers + +------+ + | Care Field Representative Name | Role | Phone | + [...] Description | +--------+--------+ + + + | 02/18/ | Refill | [facility] | Adonis Hamm | Medication Refill | | 2017 | | [facility] | E, DO [address] | | | | | [facility] [address] | [place], [place] | | | | | [address] [place], | [address] | | | | | [place] [address] | [phone] | | | | | [phone] | | | +--------+--------+ + + + [...] Encounter - Rosanna Hubbard CC CMA - 02/18/2018 9:48 AM PSTLAST OFFICE VISIT , Lipid 02/17/2018 total 224. QIANA Singh CMA documented in this encounter [...]
--- OUTSIDE RECORDS SUMMARY | ~2020-01-05 | XMS | Encounter Summary ---
Demographics + + + | Address | [address] | | | [place] [address] | + + + | Home Phone | | + + + | Preferred Language | Unknown | + + + | Marital Status | | + + + | Sikh Affiliation | Unknown | + + + | Race | White | + + + | Ethnic Group | Not or | + + + Author + + + | Author | [facility] | | | and [place] | + + + | Organization | [facility] | | | [...] Team Providers + +------+ + | Care Valet Manager Name | Role | Phone | + +------+ + | Adonis Hamm DO | PCP | | + +------+ + Reason for Visit +--------+ + | Reason | Comments | +--------+ + | Other | not feeling well | +--------+ + Encounter Details +--------+---------+ + + + | Date | Type | Department | Care Team | Description | +--------+---------+ + + + | 04/21/ | Office | [facility] | Miles Vora, | Fatigue, unspecified | | 2020 | Visit | [facility] | DNP [address] | type (Primary Dx); | | | | [facility] [address] | [place] [address] | Anxiety and | | | | [address] [place], | [phone] | depression; Sinus | | | | [place] [address] | | pain; Seasonal | | | | [phone] | | allergies; Other | | | | | | osteoporosis without | | | | | | current | | | | | | pathological | | | | | | fracture | +--------+---------+ + + + Social History [...] + + + + | Pulse | 74 | 04/21/2019 1:45 PM | | | | | PST | | + + + + + | Temperature | - | - | | + + + + + | Respiratory Rate | 16 | 04/21/2019 1:45 PM | | | | | PST | | + + + + + | Oxygen Saturation | 97% | 04/21/2019 1:45 PM | | | [...] + documented in this encounter Progress Notes Miles Vora DNP - 04/21/2019 2:00 PM PSTFormatting of this note might be different fro m the original. Patient ID: Una Manuel is a 68 y.o. year old female Chief Complaint Patient presents with Other not feeling well Assessment and Plan: 1. Fatigue, unspecified type - Labs ordered for screening, will contact pt with results - Reports feeling a "fog" - May consider a sleep study in the future if indicated - TSH, Reflex Free T4; Future - Vitamin D, Deficiency Screen (25-Hydroxy); Future - CBC with Differential; Future - Comprehensive Metabolic Panel; Future 2. Anxiety and depression - PHQ9 = 8 - GAD7 = 4 - Continue Wellbutrin as prescribed 3. Sinus pain 4. Seasonal allergies - Initiated Singulair and Sudafed for persistent sinus pain related to allergies - Continue Flonase and Zyrtec daily - montelukast (SINGULAIR) 10 mg tablet; Take 1 tablet by mouth Daily. Dispense: 30 tablet; Refill: 0 - pseudoePHEDrine (SUDAFED) 60 MG tablet; Take 1 tablet by mouth every 6 hours as needed fo r Congestion. Dispense: 60 tablet; Refill: 0 - May consider ENT referral in the future. 5. Other osteoporosis without current pathological fracture - Labs ordered, will contact pt with results - Vitamin D, Deficiency Screen (25-Hydroxy); Future Follow up with Dr. Hamm as needed. Subjective: HPI: Patient presents to the clinic to discuss lab work. Patient states she has not been feeling well. She describes it as a constant "fog." She stacie l intermittently experience nausea in the mornings. Denies congestion or sore throat, but re ports sinus issues a few weeks ago that is persistent. She states her sinuses flare during spring. She has been using Flonase daily with Zyrtec. Her fatigue symptoms first began 6- 8 months ago. At that time, her sister lost her and she was taking care of her rashida r. Patient is taking Wellbutrin 300 mg. Allergies Allergen Reactions Hydrocodone-Acetaminophen Nausea And Vomiting Past Medical History: Diagnosis Date Anxiety and depression Arthritis Dermatitis Essential hypertension Frequent UTI Gastritis Hyperlipidemia Insomnia Osteoporosis, post-menopausal Rheumatoid arthritis (HCC) Upper respiratory infection Vitamin D deficiency Past Surgical History: Procedure Laterality Date CATARACT REMOVAL Bilateral 08/2018 COLONOSCOPY 01/22/2017 JARAD AND BSO TONSILLECTOMY Family History Problem Relation Age of Onset Diabetes Father Borderline Social History Socioeconomic History Marital status: Spouse name: Not on file Number of children: Not on file Years of education: Not on file Highest education level: Not on file Occupational History Not on file Social Needs Financial resource strain: Not on file Food insecurity: Worry: Not on file Inability: Not on file Transportation needs: Medical: Not on file Non-medical: Not on file Tobacco Use Smoking status: Never Smoker Smokeless tobacco: Never Used Substance and Sexual Activity Alcohol use: Yes Alcohol/week: 2.0 standard drinks Types: 2 Cans of beer per week Drug use: No Sexual activity: Yes Partners: Male Lifestyle Physical activity: Days per week: Not on file Minutes per session: Not on file Stress: Not on file Relationships Social connections: Talks on phone: Not on file Gets together: Not on file Attends latter-day service: Not on file Active member of club or organization: Not on file Attends meetings of clubs or organizations: Not on file Relationship status: Not on file Intimate partner violence: Fear of current or ex partner: Not on file Emotionally abused: Not on file Physically abused: Not on file Forced sexual activity: Not on file Other Topics Concern Not on file Social History Narrative Not on file Current Outpatient Medications Medication Sig Dispense Refill alendronate (FOSAMAX) 10 mg tablet TK 1 T PO QD. REMAIN UPRIGHT FOR 30 MINUTES. DO NOT TAKE WITH FOOD FOR 30 MINUTES 90 tablet 3 buPROPion (WELLBUTRIN XL) 300 mg 24 hr tablet TAKE 1 TABLET BY MOUTH EVERY DAY 90 table t 3 calcium, as carbonate, (CALTRATE) 600 mg tablet Take 1 tablet by mouth 2 times daily (w ith breakfast & dinner). 180 tablet 3 Cetirizine HCl (ZYRTEC ALLERGY) 10 MG liqui-gel Take 1 capsule by mouth Daily. 90 capsu le 3 clotrimazole-betamethasone (LOTRISONE) cream Apply topically 2 times daily. 45 g 3 diclofenac (VOLTAREN) 0.1 % ophthalmic solution instill 1 drop into both eyes three linn es a day folic acid (FOLVITE) 400 MCG tablet Take [...] Indications: Other Non- Oncology 36 tablet 3 Misc Natural Products (GLUCOSAMINE CHOND COMPLEX/MSM) TABS Take by mouth as needed. omega-3 acid ethyl esters (LOVAZA) 1 g capsule Take 4 capsules by mouth Daily. 120 caps ule 11 raNITIdine (ZANTAC) 150 mg tablet Take 1 tablet by mouth 2 times daily. 180 tablet 3 rosuvastatin (CRESTOR) 20 mg tablet Take 1 tablet by mouth nightly. 90 tablet 3 No current facility-administered medications for this visit. Review of Systems Constitutional: Positive for fatigue. Negative for fever. HENT: Positive for sinus pressure. Negative for congestion and sore throat. Respiratory: Negative for cough and shortness of breath. Cardiovascular: Negative for chest pain. Objective: Vitals: BP 138/80 | Pulse 74 | Resp 16 | Ht 1.575 m (5' 2") | Wt 69.9 kg (154 lb) | SpO2 97% | BMI 28.17 kg/m Physical Exam Constitutional: She is oriented to person, place, and time. She appears well-developed and well-nourished. HENT: Head: Normocephalic and atraumatic. Sinus tenderness over bridge of the nose with maxillary sinus tenderness. Cardiovascular: Normal rate, regular rhythm and normal heart sounds. Pulmonary/Chest: Effort normal and breath sounds normal. Musculoskeletal: Normal range of motion. Neurological: She is alert and oriented to person, place, and time. She has normal reflexes . Skin: Skin is warm and dry. Psychiatric: She has a normal mood and affect. Her behavior is normal. Judgment and thought content normal. PHQ9 Depression scale: Date of Last Screening Total Score 8 (04/21/19 1300) (Printable questionnaires in Samoan ) General Anxiety Disorder (MARIXA-7): Total Score 4 (04/21/19 1300) (From MARIXA or Chronic Pain tab; printable questionnaires in Samoan ) This documentation prepared by Marleni Alvarez esthetician and manager medical spa. All aspects of this chart rev iewed for accuracy and content by Miles Vora DNP at the date and time of service. documented in this en counter Plan of Treatment Not on filedocumented as of this encounter Results Comprehensive Metabolic Panel (04/21/2019 2:23 PM PST) + + + + + + | Component | Value | Ref Range | Performed | Pathologist | | | | | At | Signature | + + + + + + | Na | 141 | 132 - 143 | [place] | | | | | mmol/L | [facility] | | | [facility] | | | | | [facility] | | + + + + + + | K | 3.8 | 3.3 - 4.9 | [place] | | | | | mmol/L | [facility] | [facility] | | | | | [facility] | | | | | | [facility] | | + + + + + + | Cl | 106 | 95 - 108 mmol/L | [place] | | | | | | [facility] | [facility] | | | | | [facility] | | | | | | [facility] | | + + + + + + | CO2 | 27 | 23 - 34 mmol/L | [place] | | | | | | [facility] | | | | | [facility] | | | | | | [facility] | | + + + + + + | Anion Gap | 8 | 7 - 16 mmol/L | [place] | | | | | | [facility] | | | [facility] | | | | | | [facility] | | + + + + + + | Glucose | 82 | 70 - 110 mg/dL | [place] | | | | | | [facility] | | | | [facility] | | | | | | [facility] | | + + + + + + | BUN | 23 | 5 - 26 mg/dL | [place] | | | | | | [facility] | | | | [facility] | | | | | | [facility] | | + + + + + + | Creatinine | 0.90 | 0.70 - 1.40 | [place] | | | | | mg/dL | [facility] | | [facility] | | | | | [facility] | | | | | | [facility] | | + + + + + + | eGFR, | >60Comment: GLOMERULAR | >=60 | [place] | | | non- | FILTRATION | mL/min/1.73m2 | [facility] | | | [place] Citizen | RATE,ESTIMATED | | [facility] | | | | mL/min/1.02w2Tpzu than | | [facility] | | | | 60 Chronic kidney | | MEDICAL | | | | disease,if found over a | | [facility]ENTER [facility] | | | | 3-month period.Less than | | | | | | 15 Kidney failureFor | | | | | | | | | | | | Americans,multiply the | | | | | | calculated GFR by 1.21. | | | | | | | | | | + + + + + + | Calcium | 9.0 | 8.3 - 10.0 | [place] | | | | | mg/dL | [facility] | | | | [facility] | | | | | | [facility] | | | | | | [facility] | | + + + + + + | Albumin | 3.7 | 3.0 - 4.5 g/dL | [facility] | | | | | | [facility] | | [facility] | | | | | [facility] | | | | | | [facility] | | + + + + + + | Bilirubin | 0.3 | 0.0 - 1.2 mg/dL | [place] | | | Total | | | [facility] | | | [facility] | | | | | [facility] | | | | | | [facility] | | + + + + + + | Total | 6.5 (L) | 6.6 - 8.5 g/dL | [place] | | | Protein | | | [facility] | | | | [facility] | | | | | [facility] | | | | | | [facility] | | + + + + + + | AST | 15 | 0 - 38 U/L | [facility] | | | | | | [facility] | | | [facility] | | | | | | [facility] | | + + + + + + | ALT | 29 | 14 - 59 U/L | [place] | | | | | | [facility] | | | | [facility] | | | | | | [facility] | | + + + + + + | Alkaline | 93 | 46 - 116 U/L | [place] | | | Phosphatase | | | [facility] | [facility] | | | | | | [facility] | | | | | | [facility] | | + + + + + + | Globulin | 2.8 | 2.4 - 4.5 g/dL | [facility] | | | | | | [facility] | | | | | | [facility] | | | | | | [facility] | | | | | | [facility] | | + + + + + + | Albumin/Katharina | 1.3 | 0.8 - 2.0 | [facility] | | | bulin Ratio | | | [facility] | [facility] | | | | | [facility] | | | | | | [facility] | | + + + + + + | BUN/Creatin | 25.6 (H) | 7.0 - 24.0 | [facility] | | | ine Ratio | | | [facility] | [facility] | | | | | | [facility] | | | | | | [facility] | | + + + + + + + + | Specimen | + + | Blood | + + + + + + + | Performing | Address | City/State/Zipcode | Phone Number | | Organization | | | | + + + + + | [facility] | [address] | [place], [place] | [phone] | | [facility] | | [address] | | | [facility] | | | | + + + + + CBC with Differential (04/21/2019 2:23 PM PST) + + + + + + | Component | Value | Ref Range | Performed | Pathologist | | | | | At | Signature | + + + + + + | White Blood | 10.0 | 4.3 - 10.4 K/uL | [facility] | | | Cells | | | [facility] | | [facility] | | | | | [facility] | | | | | | [facility] | | + + + + + + | Red Blood | 3.87 (L) | 4.12 - 5.30 | [facility] | | | Cells | | M/uL | [facility] | | [facility] | | | | | [facility] | | | | | | [facility] | | + + + + + + | Hemoglobin | 12.2 (L) | 12.4 - 15.7 | [facility] | | | | | g/dL | [facility] | [facility] | | | | [facility] | | | | | | [facility] | | + + + + + + | Hematocrit | 36.9 (L) | 37.7 - 47.0 % | [facility] | | | | | | [facility] | | | | [facility] | | | | | | [facility] | | + + + + + + | MCV | 95.3 | 82.0 - 97.0 fL | [facility] | | | | | | [facility] | | | | [facility] | | | | | | [facility] | | + + + + + + | MCH | 31.5 | 27.1 - 32.3 pg | [facility] | | | | | | [facility] | [facility] | | | | | [facility] | | | | | | [facility] | | + + + + + + | MCHC | 33.1 | 32.0 - 36.9 | [facility] | | | | | g/dL | [facility] | | [facility] | | | | | | [facility] | | + + + + + + | RDW-CV | 14.3 | 0.0 - 17.0 % | [facility] | | | | | | [facility] | | | [facility] | | | | | | [facility] | | + + + + + + | Platelet | 325 | 150 - 450 K/uL | [facility] | | | Count | | | [facility] | | | [facility] | | | | [facility] | | | | | | [facility] | | + + + + + + | MPV | 8.1 (L) | 9.4 - 12.3 fL | [facility] | | | | | | [facility] | | [facility] | | | | | | [facility] | | + + + + + + | % | 60.9 | 42.0 - 76.0 % | [facility] | | | Neutrophils | | | [facility] | [facility] | | | | | [facility] | | | | | | [facility] | | + + + + + + | % | 27.5 | 20.0 - 40.0 % | [facility] | | | Lymphocytes | | | [facility] | | [facility] | | | | | [facility] | | | | | | [facility] | | + + + + + + | % Monocytes | 8.9 | 3.0 - 13.0 % | [facility] | | | | | | [facility] | [facility] | | | | | [facility] | | | | | | [facility] | | + + + + + + | % | 2.4 | 0.0 - 7.0 % | [facility] | | | Eosinophils | | | [facility] | [facility] | | | | | | [facility] | | | | | | [facility] | | + + + + + + | % Basophils | 0.3 | 0.0 - 2.0 % | [facility] | | | | | | [facility] | | | | [facility] | | | | | | [facility] | | + + + + + + | Absolute | 6.10 | 2.50 - 8.50 | [facility] | | | Neutrophils | | K/uL | [facility] | | | | [facility] | | | | | | [facility] | | + + + + + + | Absolute | 2.80 | 1.00 - 3.80 | [facility] | | | Lymphocytes | | K/uL | [facility] | [facility] | | | | | [facility] | | | | | | [facility] | | + + + + + + | Absolute | 0.90 (H) | 0.00 - 0.80 | [facility] | | | Monocytes | | K/uL | [facility] | | | [facility] | | | | | | [facility] | | | | | | [facility] | | + + + + + + | Absolute | 0.20 | 0.00 - 0.70 | [facility] | | | Eosinophils | | K/uL | [facility] | | | [facility] | | | | | | [facility] | | | | | | [facility] | | + + + + + + | Absolute | 0.00 | 0.00 - 0.20 | [facility] | | | Basophils | | K/uL | [facility] | [facility] | | | | | | [facility] | | | | | | [facility] | | + + + + + + + + | Specimen | + + | Blood | + + + + + + + | Performing | Address | City/State/Zipcode | Phone Number | | Organization | | | | + + + + + | [facility] | [address] | [place] | [phone] | | [facility] | | [address] | | | [facility] | | | | + + + + + Vitamin D, Deficiency Screen (25-Hydroxy) (04/21/2019 2:23 PM PST) + +--------+ + + + | Component | Value | Ref Range | Performed | Pathologist | | | | | At | Signature | + +--------+ + + + | Vitamin D, | 25 (L) | 30 - 100 ng/mL | [facility] | | | 25 Hydroxy | | | [facility] | [facility] | | | | [facility] | | + +--------+ + + + + + | Specimen | + + | Blood | + + + + + + + | Performing | Address | City/State/Zipcode | Phone Number | | Organization | | | | + + + + + | [facility] | [address] | [place] | [phone] | | [facility] | | [address] | | + + + + + TSH, Reflex Free T4 (04/21/2019 2:23 PM PST) + +-------+ + + + | Component | Value | Ref Range | Performed | Pathologist | | | | | At | Signature | + +-------+ + + + | TSH | 1.82 | 0.36 - 3.74 | [facility] | | | | | uIU/mL | [facility] | | | | [facility] | | | | | [facility] | | | | | | [facility] | | + +-------+ + + + + + | Specimen | + + | Blood | + + + + + + + | Performing | Address | City/State/Zipcode | Phone Number | | Organization | | | | + + + + + | [facility] | [address] | [place], [place] | [phone] | | [facility] | | [address] | | | [facility] | | | | + + + + + documented in this encounter Visit Diagnoses + + | Diagnosis | + + | Fatigue, unspecified type - Primary | + + | Anxiety and depression Dysthymic disorder | + + | Sinus pain Other diseases of nasal cavity and sinuses | + + | Seasonal allergies Allergic rhinitis, cause unspecified | + + | Other osteoporosis without current pathological fracture | + + documented in this encounter
--- OUTSIDE RECORDS SUMMARY | ~2020-01-05 | XMS | Encounter Summary ---
Demographics + + + | Address | [address] | | | [place] [address] | + + + | Home Phone | | + + + | Preferred Language | Unknown | + + + | Marital Status | | + + + | Sikh Affiliation | Unknown | + + + | Race | White | + + + | Ethnic Group | Not or | + + + Author + + + | Author | [facility] | | | and [place] | + + + | Organization | [facility] [...] Team Providers + +------+ + | Care Post Anesthesia Room Nurse Name | Role | Phone | + +------+ + | Adonis Hamm DO | PCP | | + +------+ + Reason for Visit + +--------+ + | Reason | Onset | Comments | | | Date | | + +--------+ + | Medication Question | 07/14/ | | | | 2019 | | + +--------+ + Encounter Details +--------+ + + + + | Date | Type | Department | Care Team | Description | +--------+ + + + + | 07/14/ | Telephone | [facility] | Adonis Hamm | Medication Question | | 2018 | | [facility] | E, DO [address] | | | | | [facility] [address] | [place], [place] | | | | | [address] [facility], | [address] | | | | | [place] [address] | [phone] | | | | | [phone] | | | +--------+ + + + [...] this encounter Miscellaneous Notes Telephone Encounter - Edith Gallegos - 07/14/2018 4:53 PM PDTPharmacy states to disregard prev message they do have Rx in 15mg Thanks EDITH elephone Edith Wang - 07/14/2018 4:09 PM PDTPharmacy state they do not have Rx in 15 mg a nd wanted to verify if Dr. Hamm is okay to changing Rx to 37.5 caps or tabs. Please call Thanks EDITH elephone Rosanna Hernandez, QIANA [facility] - 07/14/2018 3:16 PM PDTRe-faxed. QIANA Singh [facility] elephone ChayoEdith Barboza - 07/14/2018 2:39 PM PDTWalgreens states they have not received Rx phent ermine and to please sign and refax. Thank you Edith documented in this enc ounter Plan of Treatment Not on filedocumented as of this encounter Visit Diagnoses + + | Diagnosis | + + | Overweight (BMI 25.0-29.9) Overweight | + + documented in this encounter"
--- OUTSIDE RECORDS SUMMARY | ~2020-01-05 | XMS | Encounter Summary ---
Demographics + + + | Address | [address] | | | [place] [address] | + + + | Home Phone [...] Team Providers + +------+ + | Care Protector Plate Attacher Name | Role | Phone | + +------+ + | Adonis Hamm DO | PCP | | + +------+ + Reason for Visit + +--------+ + | Reason | Onset | Comments | | | Date | | + +--------+ + | Sinus Problem | 03/31/ | | | | 2020 | | + +--------+ + Encounter Details +--------+ + + + + | Date | Type | Department | Care Team | Description | +--------+ + + + + | 03/31/ | Telephone | [facility] | Adonis Hamm | Sinus Problem | | 2019 | | [facility] | E, DO [address] | | | | | [facility] [address] | [place], [place] | | | | [address] [place], | [address] | | | | | [place] [address] | [phone] | | | | | [phone] | | | +--------+ + + + [...] this encounter Miscellaneous Notes Telephone Encounter - Carl Fink RN - 03/31/2019 2:34 PM PSTOrders for Gerardo virgen, sent to [facility] in [place] elephone Encounter - Adonis Hamm DO - 03/31/2019 12:57 PM PSTZithromax zpack uud nr eleph one Encounter - David Ghosh - 03/31/2019 12:54 PM PSTPt called to check on the status of a possible prescription for a sinus infection, please call/robin elephone Encounter - Carl Fink, PEG - 020 11:46 AM PSTPlease advise Carl Fink, RN elephone Encounter - Edith Gallegos - 03/31/2019 8:19 AM PSTPt states she has a lot of sinus pressure, conges tion and ear pain. Pt states she has been taking OTC decongestant sinus medication and is no t helping. Pt is requesting prescription to help. Please call if this can be arranged [facility] in [place] documented in this encounter Plan of Treatment Not on filedocumented as of this encounter Visit Diagnoses Not on filedocumented in this encounter"
--- OUTSIDE RECORDS SUMMARY | ~2020-01-05 | XMS | Encounter Summary ---
Demographics + + + | Address | [address] | | | [place] [address] | + + + | Home Phone | | + + + | Preferred Language | Unknown | + + + | Marital Status | | + + + | Druze Affiliation | Unknown | + + + [...] Team Providers + +------+ + | Care Beef Breaker Name | Role | Phone | + +------+ + | Adonis Hamm DO | PCP | | + +------+ + Reason for Visit + +--------+ + | Reason | Onset | Comments | | | Date | | + +--------+ + | Medication Refill | 07/06/ | Zantac | | | 2020 | | + +--------+ + Encounter Details +--------+--------+ + + + | Date | Type | Department | Care Team | Description | +--------+--------+ + + + | 07/06/ | Refill | [facility] | Jo Ann Mejia, | Medication Refill | | 2019 | | [facility] | [facility] | (Paolo ) | | | | [facility] [address] | | | | | | [address] [facility], | | | | | | [place] [address] | | | | | | [phone] | | | +--------+--------+ + + + [...] - Jo Ann Mejia CC CMA - 07/07/2019 9:58 AM PDTMedication pended. QIANA Hough CMA elephone Encoun ter - Jo Ann Mejia CC CMA - 07/07/2019 9:57 AM PDTZantac no longer available. Received fax from [facility] suggesting famotidine 20 mg daily, which Dr. Hamm agrees with. Electronical ly signed by QIANA Aquino CMA at 07/07/2019 9:59 AM PDTdocumented in this encounter Plan of Treatment Not on filedocumented as of this encounter Visit Diagnoses Not on filedocumented in this encounter"
--- OUTSIDE RECORDS SUMMARY | ~2020-01-05 | XMS | Encounter Summary ---
Demographics + + + | Address | [address] | | | [place] [address] | + + + | Home Phone | | + + + | Preferred Language | Unknown | + + + | Marital Status | | + + + | Roman Catholic Affiliation | Unknown | + + + | Race | White | + + + | Ethnic Group | Not or | + + + Author + + + | Author | [facility] | | | and [place] | + + + | Organization | [facility] | | [...] Team Providers + +------+ + | Care Trailer Steerer Name | Role | Phone | + +------+ + PCP | Unavailable | + +------+ + Encounter Details +--------+ + + + + | Date | Type | Department | Care Team | Description | +--------+ + + + + | 01/29/ | Abstract | [facility] | Adonis Hamm | | | 2018 | | [facility] | E, DO [address] | | | | | [facility] [address] | [place], [place] | | | | | [address] [place], | [address] | | | | | [place] [address] | [phone] | | | | | [phone] | | | +--------+ + + + [...] | + +--------+ + + + | EXTERNAL: | Routin | 01/22/2017 | | Results for this | | COLONOSCOPY | e | | | procedure are in the | | | | | | results section. | + +--------+ + + + | [facility] EXTERNAL IMAGE | Routin | 11/27/2016 | | Results for this | | | e | | | procedure are in the | | | | | | results section. | + +--------+ + + + | EXTERNAL LAB: CBC | Routin | 10/25/2016 | | Results for this | | | e | | | procedure are in the | | | | | | results section. | + +--------+ + + + | EXTERNAL LAB: TSH | Routin | 10/25/2016 | | Results for this | | | e | | | procedure are in the | | | | | | results section. | + +--------+ + + + | EXTERNAL LAB: | Routin | 10/25/2016 | | Results for this | | TRIGLYCERIDES | e | | | procedure are in the | | | | | | results section. | + +--------+ + + + | EXTERNAL LAB: | Routin | 10/25/2016 | | Results for this | | CHOLESTEROL, HDL | e | | | procedure are in the | | | | | | results section. | + +--------+ + + + | EXTERNAL LAB: | Routin | 10/25/2016 | | Results for this | | CHOLESTEROL, TOTAL | e | | | procedure are in the | | | | | | results section. | + +--------+ + + + | EXTERNAL LAB: | Routin | 10/25/2016 | | Results for this | | CHOLESTEROL, LDL | e | | | procedure are in the | | | | | | results section. | + +--------+ + + + | EXTERNAL LAB: | Routin | 10/25/2016 | | Results for this | | CREATININE | e | | | procedure are in the | | | | | | results section. | + +--------+ + + + | EXTERNAL LAB: | Routin | 10/25/2016 | | Results for this | | HEMOGLOBIN A1C | e | | | procedure are in the | | | | | | results section. | + +--------+ + + + documented in this encounter Results EXTERNAL: COLONOSCOPY (01/22/2017) + + + + + + | Component | Value | Ref Range | Performed | Pathologist | | | | | At | Signature | + + + + + + | Colonoscopy | Report not found; Repeat | | | | | | years not | | | | | Impression, | found.Comment: Per | | | | | External | [facility] | | | | | | Medicine Medical Record | | | | + + + + + + [facility] External Image (11/27/2016) + + + + + + | Component | Value | Ref Range | Performed | Pathologist | | | | | At | Signature | + + + + + + | EXT | 2-Benign finding(s) | | | | | MAMMOGRAPHY | | | | | + + + + + + External Lab: CBC (10/25/2016) + +-------+ + + + | Component | Value | Ref Range | Performed | Pathologist | | | | | At | Signature | + +-------+ + + + | WBC, | 8.3 | | | | | External | | | | | + +-------+ + + + | HGB, | 13.4 | | | | | External | | | | | + +-------+ + + + | HCT, | 42.4 | | | | | External | | | | | + +-------+ + + + External Lab: TSH (10/25/2016) + +-------+ + + + | Component | Value | Ref Range | Performed | Pathologist | | | | | At | Signature | + +-------+ + + + | TSH, | 1.66 | | | | | External | | | | | + +-------+ + + + + + | Specimen | + + | Blood | + + External Lab: Triglycerides (10/25/2016) + +-------+ + + + | Component | Value | Ref Range | Performed | Pathologist | | | | | At | Signature | + +-------+ + + + | Triglycerid | 245 | | | | | es, | | | | | | External | | | | | + +-------+ + + + + + | Specimen | + + | Blood | + + External Lab: Cholesterol, HDL (10/25/2016) + +-------+ + + + | Component | Value | Ref Range | Performed | Pathologist | | | | | At | Signature | + +-------+ + + + | HDL | 34.3 | mg/dl | | | | Cholesterol | | | | | | , External | | | | | + +-------+ + + + + + | Specimen | + + | Blood | + + External Lab: Cholesterol, Total (10/25/2016) + +-------+ + + + | Component | Value | Ref Range | Performed | Pathologist | | | | | At | Signature | + +-------+ + + + | Cholesterol | 227 | mg/dl | | | | , Total, | | | | | | External | | | | | + +-------+ + + + + + | Specimen | + + | Blood | + + External Lab: Cholesterol, LDL (10/25/2016) + +-------+ + + + | Component | Value | Ref Range | Performed | Pathologist | | | | | At | Signature | + +-------+ + + + | LDL | 144 | | | | | Cholesterol | | | | | | , Direct, | | | | | | External | | | | | + +-------+ + + + + + | Specimen | + + | Blood | + + External Lab: Creatinine (10/25/2016) + +-------+ + + + | Component | Value | Ref Range | Performed | Pathologist | | | | | At | Signature | + +-------+ + + + | Creatinine, | 0.76 | | | | | External | | | | | + +-------+ + + + + + | Specimen | + + | Blood | + + External Lab: Hemoglobin A1c (10/25/2016) + +-------+ + + + | Component | Value | Ref Range | Performed | Pathologist | | | | | At | Signature | + +-------+ + + + | Hemoglobin | 5.4 | % | | | | A1c, | | | | | | external | | | | | + +-------+ + + + + + | Specimen | + + | Blood | + + documented in this encounter Visit Diagnoses Not on filedocumented in this encounter"
--- OUTSIDE RECORDS SUMMARY | ~2020-01-05 | XMS | Encounter Summary ---
Demographics + + + | Address | [address] | | | [place] [address] | + + + | Home Phone | | + + + | Preferred Language | Unknown | + + + | Marital Status | | + + + | Amish Affiliation | Unknown | + + + [...] Team Providers + +------+ + | Care Election Clerk Name | Role | Phone | + +------+ + | Adonis Hamm DO | PCP | | + +------+ + Reason for Visit + +--------+ + | Reason | Onset | Comments | | | Date | | + +--------+ + | Medication Refill | 02/11/ | | | | 2019 | | + +--------+ + Encounter Details +--------+--------+ + + + | Date | Type | Department | Care Team | Description | +--------+--------+ + + + | 02/11/ | Refill | [facility] | Jo Ann Mejia, | Medication Refill | | 2018 | | [facility] | [facility] | | | | | [facility] [address] | | | | | | [address] [facility] [place], | | | | | | [place] [address] | | | | | | [phone] | | | +--------+--------+ + + + [...] - Jo Ann Mejia CC CMA - 02/11/2019 12:04 PM PSTPlease sign to send to [facility] QIANA Hough CMA documented in th is encounter Plan of Treatment Not on filedocumented as of this encounter Visit Diagnoses Not on filedocumented in this encounter"
--- OUTSIDE RECORDS SUMMARY | ~2020-01-05 | XMS | Encounter Summary ---
Demographics + + + | Address | [address] | | | [place] [address] | + + + | Home Phone | | + + + | Preferred Language | Unknown | + + + | Marital Status | | + + + | Church Affiliation | Unknown | + + + | Race | White | + + + | Ethnic Group | Not or | + + + Author + + + | Author | [facility] | | | and [place] | + + + | Organization | [facility] | | | [...] Team Providers + +------+ + | Care Education Reporter Name | Role | Phone | + +------+ + | Adonis Hamm DO | PCP | | + +------+ + Reason for Visit + + + | Reason | Comments | + + + | Seborrheic Keratosis | Removal of two SK on mid-back | + + + Evaluate & Treat (Routine) +--------+ + + + + + | Status | Reason | Specialty | Diagnoses / | Referred By | Referred To | | | | | Procedures | Contact | Contact | +--------+ + + + + + | Closed | Specialty | Family | Diagnoses | [facility], | [facility], | | | Services | Medicine / | SK | Adonis Lindo, | Adonis Lindo DO | | | Required | Primary Care | (seborrheic | DO [address] | | | | | keratosis) | ST [place] | [place], | | | | | Procedures | [place], [place] | [place] [address] | | | | | [place] | [address] | Phone: | | | | | [facility] | Phone: | [phone] | | | | | , [facility] | [phone] | Fax: | | | | | [facility] | Fax: | [phone] | | | | | | [phone] | | +--------+ + + + + + Encounter Details +--------+---------+ + + + | Date | Type | Department | Care Team | Description | +--------+---------+ + + + | 12/15/ | Office | [facility] | Adonis Hamm | Seborrheic keratoses | | 2019 | Visit | [facility] | E, DO [address] | (Primary Dx); Need | | | | MEDICAL [facility] [address] | [place], [place] | for influenza | | | | [address] [place], | [address] | vaccination | | | | [place] [address] | [phone] | | | | | [phone] | | | +--------+---------+ + + + [...] + + + | Blood Pressure | 128/70 | 12/15/2018 2:09 PM | RIGHT arm, adult | | | | PDT | cuff | + + + + + | Pulse | 76 | 12/15/2018 2:09 PM | | | | | PDT | | + + + + + | Temperature | - | - | | + + + + + | Respiratory Rate | 17 | 12/15/2018 2:09 PM | | | | | PDT | | + + + + + | Oxygen Saturation | 98% | 12/15/2018 2:09 PM | | | | | PDT | | + + + + + | Inhaled Oxygen | - | - | | | Concentration | | | | + + + + + | Weight | 69 kg (152 lb 3.2 | 12/15/2018 2:09 PM | | | | oz) | PDT | | + + + + + | Height | 157.5 cm (5' 2") | 12/15/2018 2:09 PM | | | | | PDT | | + + + + + | Body Mass Index | 27.84 | 12/15/2018 2:09 PM | | | | | PDT | | + + + + + documented in this encounter Progress Notes Rosanna Hubbard CC CMA - 12/15/2018 2:00 PM PDTAfter obtaining consent, per orders of Dr. Adonis Hamm, injection of FluZone high dose given by QIANA Singh CMA. Site: LEFT Deltoid. Patient tolerated well and ambulated out of clinic with out assistance. QIANA Singh CMA donis Hamm DO - 12/15/2018 2:00 PM PDT Patient ID: Una Manuel is a 68 y.o. year old female Chief Complaint: Chief Complaint Patient presents with Seborrheic Keratosis Removal of two SK on mid-back Assessment 1. Seborrheic keratoses 2. Need for influenza vaccination - Influenza *PF 65 yrs or >, Trivalent HIGH-DOSE PFSK (Fluzone) [[id number]] Plan: -Discussed PARQ of removing the skin lesions. Removed 3 SK today. Advised patient on proper wound care. -Flu shot administered today. Subjective: HPI: Patient presents to the clinic for lesion removal. The patient has three seborrheic keratoses on her mid-back. She would like to have them rem shannon today. She is interested in getting a flu shot. Current Outpatient Medications Medication Sig Dispense Refill [...] by mouth Daily. 120 caps ule 11 [place]-3 Fatty Acids (OMEGA-3 PO) Take 1,040 mg by mouth Daily. phentermine 15 MG capsule Take 1 capsule by mouth every morning. 30 capsule 3 raNITIdine (ZANTAC) 150 mg tablet Take 150 [...] Vitamin D deficiency Impaired fasting glucose Hyperglycemia Overweight (BMI 25.0-29.9) Family History Problem Relation Age of Onset Diabetes Father Borderline Past Surgical History: Procedure Laterality Date CATARACT REMOVAL Bilateral 08/2018 COLONOSCOPY 01/22/2017 JARAD AND BSO TONSILLECTOMY Social History Socioeconomic History Marital status: Spouse name: Not on file Number of children: Not on file Years of education: Not on file Highest education level: Not on file Social Needs Financial resource strain: Not on file Food insecurity - worry: Not on file Food insecurity - inability: Not on file Transportation needs - medical: Not on file Transportation needs - non-medical: Not on file Occupational History Not on file Tobacco Use Smoking status: Never Smoker Smokeless tobacco: Never Used Substance and Sexual Activity Alcohol use: Yes Alcohol/week: 1.2 oz Types: 2 Cans of beer per week Drug use: No Sexual activity: Yes Partners: Male Other Topics Concern Not on file Social History Narrative Not on file Allergies Allergen Reactions Hydrocodone-Acetaminophen Nausea And Vomiting Review of Systems All other systems reviewed and are negative. Objective: Vitals: BP 128/70 Comment: RIGHT arm, adult cuff | Pulse 76 | Resp 17 | Ht 1.575 m (5' 2") | Wt 69 kg (152 lb 3.2 oz) | SpO2 98% | ? No | BMI 27.84 kg/m Physical Exam Constitutional: She is oriented to person, place, and time. She appears well-developed and well-nourished. HENT: Head: Normocephalic and atraumatic. Right Ear: External ear normal. Left Ear: External ear normal. Nose: Nose normal. Mouth/Throat: Oropharynx is clear and moist. No oropharyngeal exudate. Eyes: Pupils are equal, round, and reactive to light. Conjunctivae and EOM are normal. Neck: Normal range of motion. Neck supple. No thyromegaly present. Cardiovascular: Normal rate, regular rhythm, normal heart sounds and intact distal pulses. Pulmonary/Chest: Effort normal and breath sounds normal. Abdominal: Soft. Bowel sounds are normal. Neurological: She is alert and oriented to person, place, and time. She has normal reflexes . Skin: Several seborrheic keratoses, located: Inferior left scapula, 1 cm round raised rough. Medial and superior to the previous SK, 1 cm round raised rough. Right paraspinal, around T10, 1 cm round raised rough. Psychiatric: She has a normal mood and affect. Her behavior is normal. Judgment and thought content normal. This documentation prepared by Fernanda Queen medical lead. All aspects of this chart review ed for accuracy and content by Adonis Hamm DO at the date and time of service. Electronically signed by: Dr. Adonis Hamm DO 12/15/2018 14:40 documented in this encounter Plan of Treatment Not on filedocumented as of this encounter Visit Diagnoses + + | Diagnosis | + + | Seborrheic keratoses - Primary | + + | Need for influenza vaccination Need for prophylactic vaccination and inoculation | | against influenza | + + documented in this encounter
--- OUTSIDE RECORDS SUMMARY | ~2020-01-05 | XMS | Encounter Summary ---
Demographics + + + | Address | [address] | | | [place] [address] | + + + | Home Phone | | + + + | Preferred Language | Unknown | + + + | Marital Status | | + + + | Synagogue Affiliation | Unknown | + + + | Race | White | + + + | Ethnic Group | Not or | + + + Author + + + | Author | [facility] | | | and [place] | + + + | Organization | [facility] | | | and [...] Team Providers + +------+ + | Care Payroll Consultant Name | Role | Phone | + +------+ + | Adonis Hamm DO | PCP | | + +------+ + Reason for Referral Evaluate & Treat (Routine) +--------+ + + + + + | Status | Reason | Specialty | Diagnoses / | Referred By | Referred To | | | | | Procedures | Contact | Contact | +--------+ + + + + + | Closed | Specialty | Family | Diagnoses | [facility], | [facility]um[facility], | | | Services | Medicine / | SK | Adonis Lindo, | Adonis Lindo DO | | | Required | Primary Care | (seborrheic | DO [address] | | | | | keratosis) | [address] [place] | [place], | | | | | Procedures | [place], [place] | [place] [address] | | | | | [place] | [address] | Phone: | | | | | [facility] | Phone: | [phone] | | | | | , [facility] | [phone] | Fax: | | | | | [facility] | Fax: | [phone] | | | | | | [phone] | | +--------+ + + + + + Reason for Visit + + + | Reason | Comments | + + + | Follow-up | Follow up on Phentermine for weight loss, pt lost 4 lbs. | + + + Encounter Details +--------+---------+ + + + | Date | Type | Department | Care Team | Description | +--------+---------+ + + + | 08/18/ | Office | [facility] | Adonis Hamm | Overweight (BMI | | 2019 | Visit | [facility] | E, DO [address] | 25.0-29.9) (Primary | | | | MED[facility] [address] | [place], [place] | Dx); Essential | | | | [address] [place], | [address] | hypertension; | | | | [place] [address] | [phone] | Seasonal allergic | | | | [phone] | | rhinitis due to | | | | | | pollen; SK | | | | | | (seborrheic | | | | | | keratosis) | +--------+---------+ + + + Social History [...] + + + | Blood Pressure | 124/68 | 08/18/2018 3:24 PM | | | | | PDT | | + + + + + | Pulse | 75 | 08/18/2018 3:24 PM | | | | | PDT | | + + + + + | Temperature | - | - | | + + + + + | Respiratory Rate | 16 | 08/18/2018 3:24 PM | | | | | PDT | | + + + + + | Oxygen Saturation | 98% | 08/18/2018 3:24 PM | | | | | PDT | | + + + + + | Inhaled Oxygen | - | - | | | Concentration | | | | + + + + + | Weight | 68.5 kg (151 lb) | 08/18/2018 3:24 PM | | | | | PDT | | + + + + + | Height | 157.5 cm (5' 2") | 08/18/2018 3:24 PM | | | | | PDT | | + + + + + | Body Mass Index | 27.62 | 08/18/2018 3:24 PM | | | | | PDT | | + + + + + documented in this encounter Patient Instructions Patient Instructions Noemy Aragon - 08/18/2018 3:20 PM PDT-Continue Phentermine 15 mg da kesha -Use Flonase nasal spray during allergy season only -Referral for freezing procedure for SK, schedule appointment for removalElectronically sig yara by Noemy Aragon at 08/18/2018 4:07 PM PDT documented in this encounter Progress Notes Adonis Hamm DO - 08/18/2018 3:20 PM PDT Patient ID: Una Manuel is a 68 y.o. year old female Chief Complaint Patient presents with Follow-up Follow up on Phentermine for weight loss, pt lost 4 lbs. Assessment: Overweight (BMI 25.0-29.9) (Primary) - Phentermine HCl; Take 1 capsule by mouth every morning. Dispense: 30 capsule; Refill : 3 Essential hypertension Seasonal allergic rhinitis due to pollen SK (seborrheic keratosis) - AMB Referral to [facility] Primary Care Plan: -Continue Phentermine 15 mg daily -Use Flonase nasal spray during allergy season only -Referral for freezing procedure for SK, schedule appointment for removal Subjective: JAZZ Heart presents to the clinic today to follow up after starting Phentermine for weight loss. She is taking Phentermine 15 mg daily, she has lost 4 pounds since 07/07/2018. She denies h aving palpitations. Her allergies are acting up right now. She is taking Zyrtec 10 mg daily, she feels like she is "foggy mentally", post nasal drip, runny/itchy eyes, congestion. She has a mole on her back about at her bra line. Current Outpatient Medications Medication Sig Dispense Refill [...] by mouth Daily. 120 caps ule 11 [place]-3 Fatty Acids (OMEGA-3 PO) Take 1,040 mg [...] Impaired fasting glucose Hyperglycemia Overweight (BMI 25.0-29.9) Social History Socioeconomic History Marital status: Spouse [...] file Social History Narrative Not on file Review of Systems HENT: Positive for congestion and postnasal drip. Eyes: Positive for itching. Cardiovascular: Negative for chest pain and palpitations. Skin: Mole on her back around bra line. Objective: Vitals: BP 124/68 | Pulse 75 | Resp 16 | Ht 1.575 m (5' 2") | Wt 68.5 kg (151 lb) | SpO2 98% | ? No | BMI 27.62 kg/m Physical Exam Constitutional: She is oriented to person, place, and time. She appears well-developed and well-nourished. HENT: Head: Atraumatic. Right Ear: Hearing, tympanic membrane, external ear and ear canal normal. Left Ear: Hearing, tympanic membrane, external ear and ear canal normal. Eyes: EOM are normal. Cardiovascular: Normal rate, regular rhythm and normal heart sounds. Pulmonary/Chest: Effort normal and breath sounds normal. Neurological: She is alert and oriented to person, place, and time. Skin: Left scapula has a 7 mm rough raised veruca looking lesion. Psychiatric: She has a normal mood and affect. Entered by Noemy Aragon CMSP, acting as scribe for Aleksey Hamm D.O. The documentation recorded by the scribe accurately reflects the service I personally [facility] and the decisions made by me. documented in this encounter Plan of Treatment + + +--------+ + + | Name | Type | Priori | Associated Diagnoses | Order Schedule | | | | ty | | | + + +--------+ + + | * [facility] [facility] | Outpatient | Routin | SK (seborrheic | Ordered: 08/18/2018 | | [facility] | Referral | e | keratosis) | | | [facility] | | | | | | Health - AMB | | | | | | Referral | | | | | + + +--------+ + + documented as of this encounter Visit Diagnoses + + | Diagnosis | + + | Overweight (BMI 25.0-29.9) - Primary Overweight | + + | Essential hypertension Unspecified essential hypertension | + + | Seasonal allergic rhinitis due to pollen | + + | SK (seborrheic keratosis) Other seborrheic keratosis | + + documented in this encounter
--- OUTSIDE RECORDS SUMMARY | ~2020-01-05 | XMS | Encounter Summary ---
Demographics + + + | Address | [address] | | | [place] [address] | + + + | Home Phone | | + + + | Preferred Language | Unknown | + + + | Marital Status | | + + + | Yarsani Affiliation | Unknown | + + + | Race | White | + + + | Ethnic Group | Not or | + + + Author + + + | Author | [facility] | | | and [place] | + + + | Organization | [facility] | | | [...] Team Providers + +------+ + | Care Computer Game Tester Name | Role | Phone | + +------+ + | Adonis Hamm DO | PCP | | + +------+ + Reason for Visit + +--------+ + | Reason | Onset | Comments | | | Date | | + +--------+ + | Lab Results | 02/17/ | | | | 2018 | | + +--------+ + Encounter Details +--------+ + + + + | Date | Type | Department | Care Team | Description | +--------+ + + + + | 02/17/ | Telephone | [facility] | Adonis Hamm | Lab Results | | 2018 | | [facility] | E, DO [address] | | | | | MED[facility] [address] | [place], [place] | | | | | [address] [place], | [address] | | | | | [place] [address] | [phone] | | | | | [phone] | | | +--------+ + + + [...] Notes Telephone Encounter - David Ghosh - 02/18/2018 8:40 AM PSTPt is scheduled for 04-14-18in elephone Encounter - Rosanna Hubbard CC CMA - 02/17/2018 5:35 PM PSTPlease call patient for follow up as recomm ended by Dr. Hamm. Thank you. QIANA Singh CMA elephone Encounte miguelito - Rosanna Hubbadr CC CMA - 02/17/2018 5:35 PM PST----- Message from Adonis Hamm DO sent at 02/17/2018 15:58 PST ----- Recommend appt to discuss her labs. Next available. documented in this encounter Plan of Treatment Not on filedocumented as of this encounter Visit Diagnoses Not on filedocumented in this encounter"
[2020-01-05] MEDS ORDERED: METHOTREXATE2.5 MG PO (12:32)
[2020-01-05] MEDS ORDERED: FOLIC ACID0.4 MG (12:33)
[2020-01-05] MEDS ORDERED: DICYCLOMINE HCL20 MG PO (14:46)
[2020-01-05] MEDS ORDERED: ZOFRAN4 MG PO (14:46)
== END 2020-01-05 15:02 | disposition home or self-care (01) ==
LOC: ED 12:16
DX: K52.9 Noninfective gastroenteritis and colitis, unspecified (principal); Z79.899 Other long term (current) drug therapy
CPT/HCPCS: 74177; 80053; 81001; 83690; 85025; 99284-25; J2405; J7030; Q9967

== ENCOUNTER 2020-02-02 07:30 | Day surgery (SDC) | payer MEDICARE ==
[~2020-02-02] VITALS: Ht 157.5 cm; Wt 67.7 kg
[~2020-02-02 07:30] MED LIST changes: +DICYCLOMINE HCL20 MG PO; +FOLIC ACID0.4 MG; +METHOTREXATE2.5 MG PO; +ZOFRAN4 MG PO
--- NOTE | 2020-02-02 07:30 | NUR ---
PT ARRIVED TO THE UNIT WALKING INDEPENDENLTY AND PLACED IN RM 8 WITH NO COMPLICATIONS. WARM BLANKET PROVIDED.
--- NOTE | 2020-02-02 08:00 | NUR ---
PRE-PROCEDURE CHECK IN COMPLETE. PT RESTING IN LOCKED AND LOWERED BED, CALL LIGHT WITHIN REACH, NO FURTHER REQUESTS AT THIS TIME.
--- NOTE | 2020-02-02 09:17 | NUR ---
02/02/20 0917 Kendra Sandoval 0808 PT ARRIVED IN PACU SLEEPY WITH NO C/O'S. ABD SOFT AND PASSING FLATUS. 0900 SITTING UP IN BED SIPPING ON WATER. 0910 DC INSTRUCTIONS GIVEN. ALL QUESTIONS ANSWERED. 914 DRESSED AND WAITING FOR RIDE.
--- NOTE | 2020-02-03 08:21 | OR ---
[facility] [address], [place] [address] Signed DATE OF OPERATION: 02/02/2020 SURGEON: Hue Hall MD PREOPERATIVE DIAGNOSES: 1. Unspecified sigmoid colitis. 2. Generalized abdominal pain. 3. Vomiting. 4. History of hyperplastic rectal polyps in 2017. POSTOPERATIVE DIAGNOSIS: Mild to moderate sigmoid colitis. PROCEDURE: Limited colonoscopy with cold biopsies of the sigmoid colon and rectum. FINDINGS: Una clearly had edema and inflammatory changes in the sigmoid colon. In fact, we could not pass the camera beyond about 30 cm. The rectum appeared to be uninvolved. INDICATIONS: Una is a 69-year-old female with a history of rheumatoid arthritis requiring methotrexate. She had a negative colonoscopy in 2006. In 2017, her colonoscopy showed a hyperplastic rectal polyp. There was no evidence of any diverticulosis at that time. Recently, she was having generalized abdominal pain with vomiting. She had been to the emergency room a few days prior to being seen in the office. The CT scan showed her thickened sigmoid colon concerning for colitis. She was therefore asked to see me for a followup colonoscopy. In the office, she felt she was feeling better. This morning, she also felt she was feeling better. She gives no family history of colon cancer or polyps. No family history of inflammatory bowel disease. In the office, I gave her a pamphlet on colonoscopy and we looked at that together along with the risks including, but not limited to gas bloating, crampy abdominal pain, bleeding, perforation requiring surgery, and missed diagnosis. We also discussed the need for IV conscious sedation, she had expressed understanding and wished to proceed. PROCEDURE NOTE: Una was taken into our endoscopy suite and placed in the left lateral decubitus position. She was given IV sedation with 4 mg of Versed and 150 mcg of fentanyl. A digital rectal exam was performed and this was unremarkable. The adult colonoscope was introduced and advanced under direct visualization of camera. The rectum was not Electronically Signed By: HUE HALL MD 02/03/20 0821 PATIENT NAME: UNA RODRIGUEZ OPERATIVE REPORT DATE OF : 50 REPORT #: [id number] PHYSICIAN: HUE HALL MD PCP: ALEKSEY BERMUDEZ DO REPORT IS CONFIDENTIAL AND NOT TO BE RELEASED WITHOUT AUTHORIZATION [facility] [address], [place] [address] Signed concerning. We immediately saw inflammatory changes in the sigmoid colon. We went up through the sigmoid colon slowly and it was a bit edematous and once we got to 30 cm, the edema had increased and the lumen was too narrow for the adult colonoscope to pass through. Consequently, we stopped and took biopsies as we withdrew the scope down to the sigmoid colon. Again, the rectum appeared unremarkable. Nevertheless, we took a biopsy of the top of the rectum and near the bottom of the rectum. We retroflexed the scope in the rectum and again, no evidence of any inflammatory changes down near the anus. She did have an internal anal skin tag. After this, the gas was suctioned out and the colonoscope removed. Una tolerated procedure quite well. RECOMMENDATIONS: I will see Una back in my office in 7 to 14 days to review her results. Hue Hall MD ALB/MODL /[id number] cc: MD Aleksey Qureshi DO Copies: HUE HALL MD, FRANK E DO ~ Electronically Signed By: HUE HALL MD 02/03/20 0821 PATIENT NAME: UNA RODRIGUEZ OPERATIVE REPORT DATE OF : 50 REPORT #: [id number] PHYSICIAN: HUE HALL MD PCP: ALEKSEY BERMUDEZ DO REPORT IS CONFIDENTIAL AND NOT TO BE RELEASED WITHOUT AUTHORIZATION
--- NOTE | 2020-02-03 12:36 | PATH ---
[facility] [address] [place], [place] [address] Signed SPECIMEN(S): A SIGMOID SPECIMEN(S): B RECTUM SPECIMEN SOURCE: A. SIGMOID B. RECTUM CLINICAL HISTORY: Gastroenteritis, colitis. Colonoscopy. MICROSCOPIC DESCRIPTION: Histologic sections of all submitted blocks are examined by light microscopy. These findings, together with the gross examination, support the pathologic diagnosis. FINAL PATHOLOGIC DIAGNOSIS: A. Colon, sigmoid, biopsy: - Active colitis with focal mucosal ulceration, see comment. - Negative for granulomata, dysplasia, or malignancy. B. Rectum, biopsy: - Focal minimal active colitis. - Negative for granulomata, dysplasia, or malignancy. COMMENT: Sections of the sigmoid colon biopsy demonstrate fragments of colonic mucosa with cryptitis, crypt abscess formation, and crypt injury. A focal area of ulceration is seen in association with crypt dropout and lamina propria hyalinization. No fibrin thrombi are identified. Signs of chronicity such as lamina propria lymphoplasmacytosis or crypt architectural distortion are not seen. The findings are nonspecific, but raise the possibility of infectious colitis, medication induced colitis, or ischemic injury. Correlation with clinical findings is recommended. NAL:cml:C2NR GROSS DESCRIPTION: Two specimens are received in two containers, labeled "CB." A. The specimen, labeled "CB," and designated on the requisition "sigmoid biopsy," is received in formalin and consists of five fragments of pink-gongora tissue (0.8 x 0.6 x 0.2 cm in aggregate). The specimen is submitted entirely in cassette (A1). PATIENT NAME: MARCELINO RODRIGUEZ PATHOLOGY DATE OF : 50 REPORT #: [id number] PHYSICIAN: ESTHER GIFFORD PCP: HOMERO BERMUDEZ DO REPORT IS CONFIDENTIAL AND NOT TO BE RELEASED WITHOUT AUTHORIZATION [facility] [address], [place] [address] Signed B. The specimen, labeled "CB," and designated on the requisition "rectum biopsy," is received in formalin and consists of two fragments of pink-gongora tissue (0.5 x 0.2 x 0.2 cm in aggregate). The specimen is submitted entirely in cassette (B1). AC (under the direct supervision of a pathologist) The Gross Description was prepared using a voice recognition system. The report was reviewed for accuracy; however, sound-alike word errors, addition and/or deletions may occur. If there is any question about this report, please contact Client Services. PERFORMING LABORATORY: The technical component was performed by [employer] [address] (Steam Fitter Supervisor Maintenance: Abbi Vega MD; CLIA# [id number]). [facility] [address] [address] (CLIA# [id number]). Diagnostician: Marcela Garcia MD Pathologist Electronically Signed 02/03/2020 Copies: ~ PATIENT NAME: MARCELINO RODRIGUEZ PATHOLOGY DATE OF : 50 REPORT #: [id number] PHYSICIAN: ESTHER GIFFORD PCP: HOMERO BERMUDEZ DO REPORT IS CONFIDENTIAL AND NOT TO BE RELEASED WITHOUT AUTHORIZATION
== END 2020-02-02 09:20 | disposition home or self-care (01) ==
LOC: DS 07:30 → OPS 07:30 → DS 09:00 → OPS 09:20
PROVIDERS: ATTEND Colon & Rectal Surgery
PROC: 0DBN8ZX Excision of Sigmoid Colon, Via Natural or Artificial Opening Endoscopic, Diagnostic (ICD-10-PCS; 2020-02-02)
PROC: 0DBP8ZX Excision of Rectum, Via Natural or Artificial Opening Endoscopic, Diagnostic (ICD-10-PCS; principal; 2020-02-02 08:30)
DX: K51.90 Ulcerative colitis, unspecified, without complications (principal); K64.8 Other hemorrhoids; I10 Essential (primary) hypertension; M06.9 Rheumatoid arthritis, unspecified; E78.2 Mixed hyperlipidemia; R73.01 Impaired fasting glucose; F32.9 Major depressive disorder, single episode, unspecified; E66.3 Overweight; Z81.0 Family history of intellectual disabilities; Z87.19 Personal history of other diseases of the digestive system; Z79.899 Other long term (current) drug therapy; Z88.5 Allergy status to narcotic agent; Z68.27 Body mass index [BMI] 27.0-27.9, adult
CPT/HCPCS: 99153; G0500; J2250; J3010; J7121

== ENCOUNTER 2020-02-28 08:23 | Emergency (ER) | payer MEDICARE ==
[~2020-02-28] VITALS: Ht 157.5 cm; Wt 67.6 kg
--- OUTSIDE RECORDS SUMMARY | 2020-02-28 08:26 | XMS ---
PreManage Notification: MARCELINO RODRIGUEZ Security Internal Controls Manager Events No recent Security Events currently on file CRITERIA MET - [facility] CARE PROVIDERS There are no care providers on record at this time. Ron has no Care Guidelines for this patient. Elder VISIT COUNT (12 MO.) 2 JEAN PAUL Nichols TOTAL 2 NOTE: Visits indicate total known visits. ED/UCC VISIT TRACKING (12 MO.) 02/28/2020 08:24 JE[facility] PAUL [facility] [place] TYPE: Emergency COMPLAINT: - NAUSEA, ABD PAIN, VOMITING 01/05/2020 12:17 JEAN PAUL [facility] [place] TYPE: Emergency COMPLAINT: - VOMITING DIAGNOSES: - Vomiting, unspecified - Noninfective gastroenteritis and colitis, unspecified - Other jail (current) drug therapy INPATIENT VISIT TRACKING (12 MO.) No inpatient visits to display in this time frame [email or web address]
[2020-02-28] MEDS ORDERED: PREDNISONE20 MG PO (08:49)
[2020-02-28] MEDS ORDERED: TRAMADOL HCL50 MG PO (08:49)
== END 2020-02-28 16:43 | disposition short-term general hospital (02) ==
LOC: ED 08:23
DX: K52.9 Noninfective gastroenteritis and colitis, unspecified (principal); Z88.5 Allergy status to narcotic agent
CPT/HCPCS: 74177; 80053; 81001; 83690; 83735; 85025; 87077; 87088; 87186; 99285-25; C9803; J1170; J2405; J7030; Q9967; U0003